=== PATIENT | male | born 1960 | race Caucasian/White ===

== ENCOUNTER 2018-06-11 12:27 | Inpatient (IN) | payer OTHER ==
[~2018-06-11] VITALS: Ht 182.9 cm; Wt 103.9 kg
[2018-06-11] VITALS (9 sets, daily range): BP systolic 83–131; BP diastolic 48–64
[2018-06-11] MEDS ORDERED: TRIA15OI TP (16:34)
[2018-06-11] MEDS ORDERED: PANT20TA2 PO (16:34)
[2018-06-11] MEDS ORDERED: ALBU2.5V8 INH (16:34)
[2018-06-11] MEDS ORDERED: OXYC1TAB15 PO (16:34)
[2018-06-11] MEDS ORDERED: L. A1CAP12 PO (16:34)
[2018-06-11] MEDS ORDERED: EPOE10005 IJ (16:34)
[2018-06-11] MEDS ORDERED: ONDA4TAB7 PO (16:34)
[2018-06-11] MEDS ORDERED: BISO5TAB2 PO (16:34)
[2018-06-11 16:41] LABS: BASE EXCESS ABG 19 mmol/L (-3-3); HCO3 ABG 47 mmol/L (21-28); PO2 ABG 57 mmHg (65-108); SAT O2 ABG 93 % (92-99)
[2018-06-11] MEDS: PROPOFOL 100 ML IV PRN (16:58)
--- NOTE | 2018-06-11 17:14 | PDOC ---
PULMONARY PROGRESS NOTES Vitals Vital Signs Date Time Temp Pulse Resp B/P (MAP) Pulse Ox O2 Delivery O2 Flow Rate FiO2 06/11/18 17:06 111 20 105/63 (77) 100 BiPAP/CPAP 06/11/18 16:22 98.6 98.6 Medications Active Scripts Medications Dose Route/Sig Max Daily Dose Days Date Category Dose Instructions Percocet 5-325 Mg Tablet (Oxycodone/Acetaminophen) 1 Each Tablet 1 Tab PO PRN Q4-6HRS PRN 06/11/18 Reported Procrit (Epoetin Jeronimo) 10,000 Unit/1 Ml Vial 10,000 Unit IJ 3X/WEEK 06/11/18 Reported Triamcinolone Acetonide 0.1% Oint (Triamcinolone Acetonide) 15 Gm Oint...g. 1 Mayra TP BID 06/11/18 Reported MIX WITH EUCERIN DIRECTED BY PHYSICIAN Bisoprolol Fumarate 5 Mg Tablet 5 Mg PO DAILY 06/11/18 Reported Zofran (Ondansetron Hcl) 4 Mg Tablet 1 Tab PO Q6HRS 06/11/18 Reported Acidophilus Capsule (L. Acidophilus/Pectin, [place]) 1 Each Capsule 1 Each PO DAILY 06/11/18 Reported Proair Hfa (Albuterol Sulfate) 8.5 Gm Hfa.aer.ad 1 Puff INH PRN Q6HRS PRN 06/11/18 Reported Protonix (Pantoprazole Sodium) 20 Mg Tablet.dr 40 Mg PO DAILY 06/11/18 Reported Impression . CHART REVIEWED SEE ORDERS FULL CONSULT TO BE DICTATED SPOKE WITH PREVIOUS RESP FAILURE NOW WITH HYPERCAPNIA RF AECOPD SEVERE EMPHYSEMA SPOKE WITH ZIGGY TREADWELL MD Jun 11, 2018 17:14
[2018-06-11 17:32] LABS: FIO2 ABG 50; PCO2 ABG 75 mmHg (35-46)
--- NOTE | 2018-06-11 18:40 | NUR ---
Patient arrived via ems. Patient intubated and placed on vent upon arrival to room. Patient ordered sedation and pain management under vent protocol. Patient given fluid bolus to resolve tachycardia after reports that patient had not been eating or drinking at home for the last 3-4 days. medications reviewed with . Dr. Jade consulted to manage vented patient. Blood gasses drawn and pulm. notified.
[2018-06-11] MEDS ORDERED: IV 1/2 NORMAL SALINE 1,000 ML IV ONE (19:45)
[2018-06-11] MEDS: IV DEXTROSE 5% - 0.9 % NACL 1,000 ML IV SCH (20:23)
--- NOTE | 2018-06-11 20:43 | NUR ---
Dr Vegas called regarding patient bp of 70/40. orders for fluids received
[2018-06-11] MEDS ORDERED: IPRATRPIUM/ALBUTEROL 0.5/2.5MG 3 ML NEBU. NEB ONE (22:00)
[2018-06-11] MEDS: CHLORHEXIDINE 0.12% 15 ML MOUTHWASH. MM SCH (22:05)
[2018-06-12] VITALS (24 sets, daily range): BP systolic 90–147; BP diastolic 48–78
[2018-06-12] MEDS: IV DEXTROSE 5% - 0.9 % NACL 1,000 ML IV SCH ×2 (00:45→01:00)
[2018-06-12] MEDS: PROPOFOL 100 ML IV PRN ×4 (00:59→18:43)
--- NOTE | 2018-06-12 03:09 | RAD ---
AP portable chest radiograph 06/11/2018 Clinical History: Respiratory failure. An AP erect portable digital radiograph of the chest was obtained. Comparison study is dated earlier the same day at 1310 hours. The ET tube is unchanged position. An NG tube has been placed. The tip of this tube is off this radiograph in the region of the body the stomach. The cardiac silhouette is normal in size. The thoracic aorta is minimally tortuous. Emphysematous changes are seen involving both lungs. No acute pulmonary infiltrate is seen. No pleural effusion or pneumothorax is noted. The osseous structures are unchanged. Impression: No acute pulmonary infiltrate is seen. Electronically signed by: Crispin Andrews MD (06/12/2018 3:05 AM) [facility]
[2018-06-12] MEDS ORDERED: MORPHINE SULFATE 4 MG/ML VIAL. IV PRN (08:00)
[2018-06-12] MEDS ORDERED: MORPHINE SULFATE 2 MG/ML VIAL. IV PRN (08:00)
[2018-06-12] MEDS ORDERED: POLYVINYL ALCOHOL 1.4% OPHTH SOLUTION 15ML BOTTLE. OU PRN (08:00)
[2018-06-12 08:34] LABS: BASE EXCESS ABG 12 mmol/L (-3-3); HCO3 ABG 36 mmol/L (21-28); PO2 ABG 61 mmHg (65-108); SAT O2 ABG 95 % (92-99)
[2018-06-12 08:38] LABS: PCO2 ABG 46 mmHg (35-46)
--- NOTE | 2018-06-12 08:48 | RAD ---
EXAM: Chest, single view; abdomen, single view. HISTORY: Tube placement. COMPARISON: 06/11/2018 FINDINGS: A frontal view the chest and frontal views of the upper abdomen are obtained. There is an endotracheal tube within the mid trachea. The endotracheal tube tip is approximately 8.0 cm proximal to the talia. There is a nasogastric tube looped within the stomach. There is bilateral upper lobe predominant emphysema. There is no consolidation, pleural effusion or pneumothorax. There is a stable prominent cardiac silhouette and there are prominent central pulmonary vessels, likely due to a component of chronic pulmonary artery hypertension. There is gas and stool within the visualized colon. IMPRESSION: 1. Endotracheal tube and nasogastric tube in expected position. 2. Pulmonary emphysema and prominent cardiac silhouette. Electronically signed by: Almaz Elizabeth MD (06/12/2018 8:45 AM) [place] [id number]
[2018-06-12 09:14] LABS: HEMATOCRIT 32.3 % (39.0-53.0); HEMOGLOBIN 9.9 g/dL (13.0-17.5); RED BLOOD COUNT 3.31 x10^6/uL (4.30-5.70); RED CELL DISTRIBUTION WIDTH 13.6 % (11.5-14.5); WHITE BLOOD COUNT 11.2 x10^3/uL (4.0-11.0)
--- NOTE | 2018-06-12 09:18 | PDOC ---
PULMONARY PROGRESS NOTES Subjective PT SEDATED ON AC MODE AM ABG NOTED DECREASE MINUTE VENTILATION Vitals Vital Signs Date Time Temp Pulse Resp B/P (MAP) Pulse Ox O2 Delivery O2 Flow Rate FiO2 06/12/18 08:02 100 Ventilator 06/12/18 08:00 100.1 90 20 139/70 (93) 100.1 General: Alert Lungs: Clear Cardiovascular: S1, S2 Abdomen: Soft Neuro Exam: Alert Extremities: Other (EDEMA) Skin: Warm Labs Laboratory Tests Test 06/11/18 16:40 06/12/18 08:00 O2 Saturation 93 % (92-99) 95 % (92-99) Arterial Blood pH 7.42 (7.35-7.45) 7.51 (7.35-7.45) Arterial Blood pCO2 at Patient Temp 75 mmHg (35-46) 46 mmHg (35-46) Arterial Blood pO2 at Patient Temp 57 mmHg (65-108) 61 mmHg (65-108) Arterial Blood HCO3 47 mmol/L (21-28) 36 mmol/L (21-28) Arterial Blood Base Excess 19 mmol/L (-3-3) 12 mmol/L (-3-3) FiO2 50 Laboratory Tests Test 06/11/18 16:40 06/12/18 08:00 O2 Saturation 93 % (92-99) 95 % (92-99) Arterial Blood pH 7.42 (7.35-7.45) 7.51 (7.35-7.45) Arterial Blood pCO2 at Patient Temp 75 mmHg (35-46) 46 mmHg (35-46) Arterial Blood pO2 at Patient Temp 57 mmHg (65-108) 61 mmHg (65-108) Arterial Blood HCO3 47 mmol/L (21-28) 36 mmol/L (21-28) Arterial Blood Base Excess 19 mmol/L (-3-3) 12 mmol/L (-3-3) FiO2 50 Medications Active Scripts Medications Dose Route/Sig Max Daily Dose Days Date Category Dose Instructions Percocet 5-325 Mg Tablet (Oxycodone/Acetaminophen) 1 Each Tablet 1 Tab PO PRN Q4-6HRS PRN 06/11/18 Reported Procrit (Epoetin Jeronimo) 10,000 Unit/1 Ml Vial 10,000 Unit IJ 3X/WEEK 06/11/18 Reported Triamcinolone Acetonide 0.1% Oint (Triamcinolone Acetonide) 15 Gm Oint...g. 1 Mayra TP BID 06/11/18 Reported MIX WITH EUCERIN DIRECTED BY PHYSICIAN Bisoprolol Fumarate 5 Mg Tablet 5 Mg PO DAILY 06/11/18 Reported Zofran (Ondansetron Hcl) 4 Mg Tablet 1 Tab PO Q6HRS 06/11/18 Reported Acidophilus Capsule (L. Acidophilus/Pectin, [place] [address] [place]) 1 Each Capsule 1 Each PO DAILY 06/11/18 Reported Proair Hfa (Albuterol Sulfate) 8.5 Gm Hfa.aer.ad 1 Puff INH PRN Q6HRS PRN 06/11/18 Reported Protonix (Pantoprazole Sodium) 20 Mg Tablet.dr 40 Mg PO DAILY 06/11/18 Reported Comments CXR REVIEWED Impression . A/C HYPERCAPNIC RESP FAILURE AECOPD HTN Plan . NOTE DICTATED WILL CONTINUE THE SAME SUSPECT PT C02 NORMALLY IN 60 RANGE ZIGGY SALAZAR MD Jun 12, 2018 09:18
[2018-06-12] MEDS: ALBUTEROL SULFATE 2.5 MG/3 ML NEBU. INH PRN ×2 (09:26→19:46)
[2018-06-12 09:34] LABS: CREATININE 0.8 mg/dL (0.7-1.3); GFR 98.9; MAGNESIUM 1.8 mg/dL (1.8-2.4); POTASSIUM 3.7 mmol/L (3.5-5.1)
[2018-06-12 09:39] LABS: CALCIUM 8.8 mg/dL (8.5-10.1)
--- NOTE | 2018-06-12 09:59 | HP ---
ADMIT DATE: 06/12/2018 HISTORY OF PRESENT ILLNESS: The patient is a 58-year-old male patient who was brought today by the emergency medical service to [facility] Emergency Room because of shortness of breath and hypoxia. The patient has had history of COPD and usually was on 4 liters of oxygen, but for the last few days prior to admission, his oxygen was increased to 5 or 6 liters. He has had increasing shortness of breath with dry cough for the last 2 days without fever, chills, chest pain, sick contact. Emergency medical service personnel reported the patient's oxygen saturation was only 80% on 6 liters of oxygen that improved with nonrebreathing mask and DuoNeb to 99% on arrival to the Emergency Room. He has refused to answer most of the questions. His was helping with the history. He has history of intubation and admission to [facility] before and he states that he does not want to have intubation as long as possible. He was put on BiPAP machine there, but where his initial blood gases showed a pH of 7.24, his pCO2 was 124, pO2 was 63 and oxygen saturation was only 83% on FiO2 of 40%. Apparently, he did not do well on BiPAP and the patient ended up intubated and was transferred to [facility] ICU to continue mechanical ventilation and to consult the bagger and stock handler helper. PAST MEDICAL HISTORY: Significant for COPD and obviously history of intubation, mechanical ventilation at [facility]. He is also known to have hypertension and anemia. PAST SURGICAL HISTORY: Unobtainable. FAMILY HISTORY: Unobtainable. SOCIAL HISTORY: He is . Apparently, an ex-smoker, however, does not have any further information and has no family members available when I saw him. We will contact [facility] to get some more records for him. REVIEW OF SYSTEMS: Unobtainable. PHYSICAL EXAMINATION: GENERAL: On arrival to the Emergency Room of [facility], he was obtunded, but there was no pallor, jaundice, cyanosis, or thyromegaly. No jugular venous distension. No lower limb edema. VITAL SIGNS: His heart rate was 126, blood pressure was 110/60, temperature of 98.6, respiratory rate was 24, and oxygen saturation was 99%. HEAD: Showed normocephalic, atraumatic. NECK: Supple. HEART: Showed normal first and second sounds. No gallop, rub or murmur. CHEST: Shows central trachea, equally reduced expansion, reduced air entry, vesicular breath sounds with scattered rhonchi, no crepitation. ABDOMEN: Distended, soft, nontender. No guarding or rigidity. No organomegaly. All hernial orifice intact. Bowel sounds normal. NEUROLOGIC: He was awake, alert, responding appropriately. Cranial nerves intact. EXTREMITIES: He moves extremities without difficulty. LABORATORY DATA: His lab work on arrival to the Emergency Room showed that his blood gases showed a pH of 7.24, pCO2 of 124, pO2 of 63, bicarbonate 52 and oxygen saturation was 83% on FiO2 of 40%. His white cell count was 10,000, hemoglobin 12.4, hematocrit 39.9, MCV 98 and platelet count of 199,000 with normal manual differential. His EKG showed that he was in sinus tachycardia with a heart rate of 125 with right axis deviation, ST-T wave abnormalities in inferior leads with left ventricular strain pattern. No ST elevation. He has had a chest x-ray, which showed the heart size is normal. There is attenuation of the pulmonary vasculature in the upper lobes, particularly on the right suggesting emphysema. No pulmonary consolidation is seen. There was no evidence of pleural fluid or pneumothorax. ASSESSMENT AND PLAN: An attempt was made to treat him with the BiPAP machine. He was treated with BiPAP machine, DuoNeb and Solu-Medrol was given with partial improvement of his condition. The patient has had oxygen saturation at low of 90s on nonrebreather mask. The patient informed about needs for intubation and he and his agreed to be intubated and his signed the consent. The patient has uneventful intubation with increased oxygen to 100%, but had some episodes of waking up on propofol drip that improved with bolus of propofol and Versed. His blood pressure was low and received at least 2 liters of fluid and was transferred to [facility] Intensive Care Unit to continue with mechanical ventilation and to consult the bagger and stock handler helper for ventilator management with the admission diagnosis of acute hypoxic hypercapnic respiratory failure, chronic obstructive pulmonary disease exacerbation. His sodium was somewhat high. We will contact the [facility] to get some more medical records. Meanwhile, we will resume all his home medications that include his epoetin stefania 10,000 units 3 times a week, Bisoprolol 5 mg once a day, oxycodone/APAP 5/325 one tablet every 4-6 hours. He is on ondansetron 4 mg every 6 hours, Protonix 40 mg daily, lactobacillus acidophilus 1 capsule once a day and triamcinolone acetonide 0.1% ointment applied topically twice a day. MILES MOJICA MD DR: BELINDA/елена JOB#: [id number] / [id number]
[2018-06-12] MEDS: CHLORHEXIDINE 0.12% 15 ML MOUTHWASH. MM SCH ×2 (10:11→20:59)
[2018-06-12] MEDS: FAMOTIDINE 20 MG/2 ML VIAL IVP SCH ×2 (10:11→20:59)
[2018-06-12] MEDS: ATENOLOL 50 MG TABLET. PO SCH (10:12)
[2018-06-12] MEDS: LACTOBACILLUS RHAMNOSUS GG 1 CAPSULE. PO SCH ×2 (10:12→20:59)
[2018-06-12] MEDS: methylPREDNISolone SOD SUCC PF 40 MG/ML VIAL. IV SCH ×3 (10:12→21:08)
[2018-06-12] MEDS: TRIAMCINOLONE ACETONIDE 0.1% TOPICAL OINTMENT 15GM TUBE. TP SCH ×2 (10:13→21:00)
[2018-06-12] MEDS: POTASSIUM CL 20MEQ D5-0.45NACL 1,000 ML IV SCH ×2 (11:19→22:22)
--- NOTE | 2018-06-12 15:12 | NUR ---
SS following for discharge planning. SS reviewed pt chart. Pt is from home with spouse and is currently on the vent. SS will continue to follow for pending discharge needs.
--- NOTE | 2018-06-12 20:56 | PN ---
DATE: 06/12/2018 SUBJECTIVE: The patient is a 58-year-old male patient who was seen yesterday initially at [facility] Emergency Room with acute hypoxic hypercapnic respiratory failure that required intubation, mechanical ventilation, and was transferred to [facility] to continue mechanical ventilation. He was hypotensive, so he received a total of 3 liters of normal saline and also some D5 as his sodium was high. He was sedated and did very well overnight. When I saw him this morning, he was continued to be intubated, mechanically ventilated, and well sedated. The nursing staff did not voice any concerns that he has an uneventful night. PHYSICAL EXAMINATION: GENERAL: When I examined him, he looked somewhat pale, not jaundice, cyanosis, or thyromegaly. No jugular venous distension. No lower limb edema. VITAL SIGNS: His heart rate was 93, blood pressure was 92/51, temperature was 100.1, respiratory rate was 20, and oxygen saturation was 97% on FiO2 of 40%. HEAD, EYES, EARS, NOSE AND THROAT: Showed normocephalic, atraumatic. He has orotracheal and orogastric tube in place. His neck was supple. HEART: Showed normal first and second sounds. No gallop, rub or murmur. CHEST: Clear to auscultation. No crepitation or rhonchi. ABDOMEN: Distended, soft, nontender. No guarding or rigidity. No organomegaly. All hernial orifices intact. Bowel sounds normal. NEUROLOGIC: He is heavily sedated. His chest x-ray showed no acute pulmonary infiltrate. He has an endotracheal tube, it is unchanged in position. He had NG tube that been placed, the tip of this tube of this radiograph in the region of the body of the stomach. The cardiac silhouette is normal in size. The thoracic aorta is minimally tortuous. Emphysematous changes are seen involving both lungs. No acute pulmonary infiltrate is seen. No pleural effusion or pneumothorax is noted. The osseous structures are unchanged. We will continue with mechanical ventilation. Add Solu-Medrol 40 mg IV q.8 hourly. We will obviously start him on tube feeds through the NG tube and will be consulted the electrical systems designer, speech therapist, physical and occupational therapist. We will get medical records from [facility]. MILES MOJICA MD DR: Tre JOB#: [id number] / [id number]
[2018-06-13] VITALS (22 sets, daily range): BP systolic 82–132; BP diastolic 50–80
--- NOTE | 2018-06-13 01:13 | CONS ---
DATE OF CONSULTATION: 06/12/2018 ATTENDING PHYSICIAN: Dr. Cornejo. REASON FOR CONSULTATION: The patient seen in pulmonary consultation at the request of Dr. Cornejo for vent management. HISTORY OF PRESENT ILLNESS: The patient is a 58-year-old that normally wears 4 liters of oxygen. Apparently, he has been having some increasing shortness of breath. He was increasing his oxygen supplementation, presented to [facility] with short of air and hypoxemia. The patient reportedly had saturations of 80% on 6 liters. The states that patient previously had respiratory failure and intubation and was admitted at [facility]. He was placed on BiPAP. Initial blood gas revealed a pH of 7.24, PaCO2 of 124, paO2 of 63. The patient continued to deteriorate. He eventually was intubated and transferred to [facility] for further evaluation and management. During my evaluation, last evening, the patient hemodynamically was stable. A chest x-ray was reviewed revealing hyperinflation with no infiltrates. His arterial blood gas revealed a pH of 7.42, PaCO2 of 75, paO2 of 57. White count was 11,000. Electrolytes were normal. PAST MEDICAL HISTORY: Chronic respiratory failure, previously intubated at [facility]. There is also history of hypertension and anemia. PAST SURGICAL HISTORY: None. No recent major surgeries. ALLERGIES: LISTED TO PENICILLIN, HYDROCODONE. SOCIAL HISTORY: Apparently, he is a former smoker. REVIEW OF SYSTEMS: Unobtainable secondary to the patient's condition. PHYSICAL EXAMINATION: VITAL SIGNS: Stable. O2 saturation was greater than 92%. HEENT: Eyes, the sclerae were nonicteric. NECK: Jugular venous distention could not be assessed secondary to body habitus. CHEST: Full expansion. LUNGS: Adequate airway flow with no wheezes. CARDIOVASCULAR: Regular rate and rhythm with S1, S2, no S3. ABDOMEN: Soft, nontender, nondistended. EXTREMITIES: No clubbing, cyanosis or pitting edema. NEUROLOGIC: The patient was sedated. Labs and chest x-ray as indicated above. IMPRESSION: 1. Acute on chronic hypoxemic hypercapnic respiratory failure. 2. Acute exacerbation of chronic obstructive pulmonary disease. 3. Tobacco dependence, in remission. 4. Hypertension. 5. Chronic anemia. PLAN: 1. We will continue support with mechanical ventilation. 2. Repeat arterial blood gas and chest x-ray in the morning. 3. DVT and GI prophylaxis. 4. Solu-Medrol. 5. Continue home meds. Dr. Cornejo, I do appreciate the privilege in sharing this patient's care. Total cumulative critical care time of 40 minutes. ZIGGY SALAZAR MD DR: HUMBERTO/елена JOB#: [id number] / [id number]
[2018-06-13 03:33] LABS: HEMATOCRIT 30.6 % (39.0-53.0); HEMOGLOBIN 9.6 g/dL (13.0-17.5); RED BLOOD COUNT 3.21 x10^6/uL (4.30-5.70); RED CELL DISTRIBUTION WIDTH 13.8 % (11.5-14.5); WHITE BLOOD COUNT 9.7 x10^3/uL (4.0-11.0)
[2018-06-13 03:59] LABS: ALBUMIN 2.3 g/dL (3.4-5.0); ALBUMIN/GLOBULIN RATIO 0.7 (1.0-1.7); CALCIUM 8.2 mg/dL (8.5-10.1); CREATININE 0.6 mg/dL (0.7-1.3); GFR 137.9; POTASSIUM 4.3 mmol/L (3.5-5.1); TOTAL BILIRUBIN 0.2 mg/dL (0.2-1.0); TOTAL PROTEIN 5.8 g/dL (6.4-8.2)
[2018-06-13] MEDS: PROPOFOL 100 ML IV PRN ×3 (05:18→09:47)
[2018-06-13] MEDS: methylPREDNISolone SOD SUCC PF 40 MG/ML VIAL. IV SCH ×3 (05:49→21:34)
--- NOTE | 2018-06-13 08:31 | RAD ---
Portable chest, 06/13/2018: HISTORY: Respiratory failure Comparison is made to yesterday's study. The ET tube tip lies 7-8 cm above the talia. The NG tube extends into the stomach. The heart is at the upper limits of normal in size. Emphysematous changes are again noted in the upper lobes with parenchymal scarring. Retrocardiac infiltrate has developed medially in the left base. No definite pleural fluid is seen. IMPRESSION: 1. Stable tube positions. 2. Emphysema. 3. Retrocardiac left basilar infiltrate suggesting pneumonia. Electronically signed by: Desmond Lind MD (06/13/2018 8:28 AM) [facility]
[2018-06-13] MEDS: ATENOLOL 50 MG TABLET. PO SCH (09:00)
[2018-06-13] MEDS ORDERED: PIP/TAZO PER PHARMACY MC PRN (09:00)
[2018-06-13] MEDS: CHLORHEXIDINE 0.12% 15 ML MOUTHWASH. MM SCH ×2 (09:00→21:34)
[2018-06-13] MEDS ORDERED: VANCOMYCIN PER PHARMACY MC PRN (09:00)
[2018-06-13] MEDS: TRIAMCINOLONE ACETONIDE 0.1% TOPICAL OINTMENT 15GM TUBE. TP SCH ×2 (09:00→21:35)
--- NOTE | 2018-06-13 09:19 | PDOC ---
PULMONARY PROGRESS NOTES Subjective PT SEDATED ON AC MODE AM ABG NOTED Vitals Vital Signs Date Time Temp Pulse Resp B/P (MAP) Pulse Ox O2 Delivery O2 Flow Rate FiO2 06/13/18 08:46 100 Ventilator 06/13/18 06:00 61 13 111/67 (82) 06/12/18 23:59 95.4 95.4 General: Alert Lungs: Clear Cardiovascular: S1, S2 Abdomen: Soft Neuro Exam: Alert Extremities: Other (EDEMA) Skin: Warm Labs Laboratory Tests Test 06/11/18 15:30 06/11/18 16:40 06/12/18 08:00 06/12/18 08:55 Nasal Screen MRSA (PCR) Negative (Negative) O2 Saturation 93 % (92-99) 95 % (92-99) Arterial Blood pH 7.42 (7.35-7.45) 7.51 (7.35-7.45) Arterial Blood pCO2 at Patient Temp 75 mmHg (35-46) 46 mmHg (35-46) Arterial Blood pO2 at Patient Temp 57 mmHg (65-108) 61 mmHg (65-108) Arterial Blood HCO3 47 mmol/L (21-28) 36 mmol/L (21-28) Arterial Blood Base Excess 19 mmol/L (-3-3) 12 mmol/L (-3-3) FiO2 50 White Blood Count 11.2 x10^3/uL (4.0-11.0) Red Blood Count 3.31 x10^6/uL (4.30-5.70) Hemoglobin 9.9 g/dL (13.0-17.5) Hematocrit 32.3 % (39.0-53.0) Mean Corpuscular Volume 98 fL (79-100) Mean Corpuscular Hemoglobin 30 pg (25-35) Mean Corpuscular Hemoglobin Concent 31 g/dL (31-37) Red Cell Distribution Width 13.6 % (11.5-14.5) Platelet Count 170 x10^3/uL (140-400) Sodium Level 145 mmol/L (136-145) Potassium Level 3.7 mmol/L (3.5-5.1) Chloride Level 102 mmol/L (98-107) Carbon Dioxide Level 40 mmol/L (21-32) Anion Gap 3 (6-14) Blood Urea Nitrogen 34 mg/dL (8-26) Creatinine 0.8 mg/dL (0.7-1.3) Estimated GFR (Cockcroft-Gault) 98.9 Glucose Level 114 mg/dL (70-99) Calcium Level 8.8 mg/dL (8.5-10.1) Magnesium Level 1.8 mg/dL (1.8-2.4) Test 06/13/18 03:13 White Blood Count 9.7 x10^3/uL (4.0-11.0) Red Blood Count 3.21 x10^6/uL (4.30-5.70) Hemoglobin 9.6 g/dL (13.0-17.5) Hematocrit 30.6 % (39.0-53.0) Mean Corpuscular Volume 96 fL (79-100) Mean Corpuscular Hemoglobin 30 pg (25-35) Mean Corpuscular Hemoglobin Concent 31 g/dL (31-37) Red Cell Distribution Width 13.8 % (11.5-14.5) Platelet Count 162 x10^3/uL (140-400) Sodium Level 145 mmol/L (136-145) Potassium Level 4.3 mmol/L (3.5-5.1) Chloride Level 105 mmol/L (98-107) Carbon Dioxide Level 41 mmol/L (21-32) Anion Gap -1 (6-14) Blood Urea Nitrogen 28 mg/dL (8-26) Creatinine 0.6 mg/dL (0.7-1.3) Estimated GFR (Cockcroft-Gault) 137.9 BUN/Creatinine Ratio 47 (6-20) Glucose Level 222 mg/dL (70-99) Calcium Level 8.2 mg/dL (8.5-10.1) Total Bilirubin 0.2 mg/dL (0.2-1.0) Aspartate Amino Transf (AST/SGOT) 20 U/L (15-37) Alanine Aminotransferase (ALT/SGPT) 15 U/L (16-63) Alkaline Phosphatase 40 U/L (46-116) Total Protein 5.8 g/dL (6.4-8.2) Albumin 2.3 g/dL (3.4-5.0) Albumin/Globulin Ratio 0.7 (1.0-1.7) Laboratory Tests Test 06/13/18 03:13 White Blood Count 9.7 x10^3/uL (4.0-11.0) Red Blood Count 3.21 x10^6/uL (4.30-5.70) Hemoglobin 9.6 g/dL (13.0-17.5) Hematocrit 30.6 % (39.0-53.0) Mean Corpuscular Volume 96 fL (79-100) Mean Corpuscular Hemoglobin 30 pg (25-35) Mean Corpuscular Hemoglobin Concent 31 g/dL (31-37) Red Cell Distribution Width 13.8 % (11.5-14.5) Platelet Count 162 x10^3/uL (140-400) Sodium Level 145 mmol/L (136-145) Potassium Level 4.3 mmol/L (3.5-5.1) Chloride Level 105 mmol/L (98-107) Carbon Dioxide Level 41 mmol/L (21-32) Anion Gap -1 (6-14) Blood Urea Nitrogen 28 mg/dL (8-26) Creatinine 0.6 mg/dL (0.7-1.3) Estimated GFR (Cockcroft-Gault) 137.9 BUN/Creatinine Ratio 47 (6-20) Glucose Level 222 mg/dL (70-99) Calcium Level 8.2 mg/dL (8.5-10.1) Total Bilirubin 0.2 mg/dL (0.2-1.0) Aspartate Amino Transf (AST/SGOT) 20 U/L (15-37) Alanine Aminotransferase (ALT/SGPT) 15 U/L (16-63) Alkaline Phosphatase 40 U/L (46-116) Total Protein 5.8 g/dL (6.4-8.2) Albumin 2.3 g/dL (3.4-5.0) Albumin/Globulin Ratio 0.7 (1.0-1.7) Medications Active Scripts Medications Dose Route/Sig Max Daily Dose Days Date Category Dose Instructions Percocet 5-325 Mg Tablet (Oxycodone/Acetaminophen) 1 Each Tablet 1 Tab PO PRN Q4-6HRS PRN 06/11/18 Reported Procrit (Epoetin Jeronimo) 10,000 Unit/1 Ml Vial 10,000 Unit IJ 3X/WEEK 06/11/18 Reported Triamcinolone Acetonide 0.1% Oint (Triamcinolone Acetonide) 15 Gm Oint...g. 1 Mayra TP BID 06/11/18 Reported MIX WITH EUCERIN DIRECTED BY PHYSICIAN Bisoprolol Fumarate 5 Mg Tablet 5 Mg PO DAILY 06/11/18 Reported Zofran (Ondansetron Hcl) 4 Mg Tablet 1 Tab PO Q6HRS 06/11/18 Reported Acidophilus Capsule (L. Acidophilus/Pectin, [place]) 1 Each Capsule 1 Each PO DAILY 06/11/18 Reported Proair Hfa (Albuterol Sulfate) 8.5 Gm Hfa.aer.ad 1 Puff INH PRN Q6HRS PRN 06/11/18 Reported Protonix (Pantoprazole Sodium) 20 Mg Tablet. 40 Mg PO DAILY 06/11/18 Reported Comments CXR REVIEWED NEW INFILTRATE Impression . IMPRESSION: 1. Acute on chronic hypoxemic hypercapnic respiratory failure. 2. Acute exacerbation of chronic obstructive pulmonary disease. 3. Tobacco dependence, in remission. 4. Hypertension. 5. Chronic anemia. 6. PNEUMONIA POSSIBLE GRAM NEG Plan . AGREE WITH DR MOJICA ON ANTIBX SPOKE WITH AT BEDSIDE D/W RT WILL INCREASE RATE 10 16 WILL NEED SEVERAL MORE DAYS ON VENT DVT AND GI PROPH SUSPECT PT C02 NORMALLY IN 60 RANGE ZIGGY SALAZAR MD Jun 13, 2018 09:19
[2018-06-13 09:29] LABS: BASE EXCESS ABG 11 mmol/L (-3-3); HCO3 ABG 39 mmol/L (21-28); PO2 ABG 70 mmHg (65-108); SAT O2 ABG 94 % (92-99)
[2018-06-13 09:31] LABS: FIO2 ABG 40; PCO2 ABG 74 mmHg (35-46)
--- NOTE | 2018-06-13 09:41 | PN ---
DATE: 06/13/2018 SUBJECTIVE: The patient is resting slightly propped up in bed and in no apparent respiratory distress. He continued to be intubated, mechanically ventilated on propofol and fentanyl. Nursing staff did not voice any concern and stated that he has an uneventful night. When I examined him, he looked somewhat pale, but no jaundice, cyanosis or thyromegaly. No jugular venous distension. No lower limb edema. OBJECTIVE: VITAL SIGNS: His heart rate was 61, blood pressure 111/57, temperature was 95.4, respiratory rate was 13 and oxygen saturation was 100% on FiO2 of 40%.. HEAD, EYES, EARS, NOSE AND THROAT: Showed normocephalic, atraumatic. Orotracheal and orogastric tube in place. NECK: Supple. HEART: Showed normal first and second heart sounds. No gallop, rub or murmur. CHEST: Showed central trachea, equal bilateral chest expansion, air entry. Vesicular breath sounds. No crepitation or rhonchi. ABDOMEN: Distended. Soft, nontender NEUROLOGIC: He was heavily sedated. LABORATORY DATA: His lab work this morning showed a white cell count of 9700, hemoglobin 9.6, hematocrit 30.6, MCV 96 and platelet count of 162,000. His chemistry showed a serum sodium of 145, potassium 4.3, chloride 105, bicarbonate 41, anion gap of -1, BUN 28, creatinine 0.6, estimated GFR was 137 mL per minute. His glucose was 222, calcium was 8.2. Total bilirubin, AST, ALT, alkaline phosphatase were normal. Total protein was 5.8, albumin 2.3. His nasal screen for MRSA PCR was negative. His chest x-ray this morning showed that stable tube positions, has emphysema and has a retrocardiac left basilar infiltrate suggestive of pneumonia. ASSESSMENT: 1. Acute on chronic hypoxic hypercapnic respiratory failure. 2. Chronic obstructive pulmonary disease exacerbation. 3. Hypertension. 4. Chronic anemia that is normochromic normocytic. Apparently, the patient has history of acute duodenal ulcer with hemorrhage, acute posthemorrhagic anemia. He is also known to have paroxysmal atrial fibrillation, psoriasis. His chest x-ray showed that he has left lower lobe infiltrate. My plan is to continue with mechanical ventilation and wean as tolerated. Continue IV fluid. Given the infiltrate in the left lung, I will start him on IV antibiotic and decide on further management accordingly. MILES MOJICA MD DR: BELINDA/елена JOB#: [id number] / [id number]
[2018-06-13] MEDS: MEROPENEM 1 GM in IV NORMAL SALINE 100ML 100 ML IV SCH ×2 (09:48→21:34)
[2018-06-13] MEDS ORDERED: VANCOMYCIN 2 GM in IV NORMAL SALINE 500ML BAG 500 ML IV ONE (10:00)
[2018-06-13] MEDS: LACTOBACILLUS RHAMNOSUS GG 1 CAPSULE. PO SCH ×2 (11:14→21:34)
[2018-06-13] MEDS: FAMOTIDINE 20 MG/2 ML VIAL IVP SCH ×2 (11:14→21:34)
[2018-06-13] MEDS ORDERED: PANTOPRAZOLE IV PUSH 40 MG VIAL. IVP SCH (11:30)
--- NOTE | 2018-06-13 14:00 | NUR ---
Changed over Versed gtt instaed of Propofol gt for sedation as BP upper 80's sys. at bedside. Vent and ETT intact. Appears comfortable. No fever. Lines intact
[2018-06-13] MEDS: MIDAZOLAM 100mg/100ml NS BAG 100 ML IV PRN (14:32)
[2018-06-13] MEDS: POTASSIUM CL 20MEQ D5-0.45NACL 1,000 ML IV SCH ×2 (18:35→21:35)
[2018-06-14] VITALS (24 sets, daily range): BP systolic 100–149; BP diastolic 56–95
[2018-06-14] MEDS: POTASSIUM CL 20MEQ D5-0.45NACL 1,000 ML IV SCH (02:30)
[2018-06-14] MEDS: methylPREDNISolone SOD SUCC PF 40 MG/ML VIAL. IV SCH ×3 (05:37→21:19)
[2018-06-14] MEDS: MEROPENEM 1 GM in IV NORMAL SALINE 100ML 100 ML IV SCH ×3 (05:38→21:18)
[2018-06-14 05:48] LABS: HEMOGLOBIN 11.2 g/dL (13.0-17.5); RED BLOOD COUNT 3.83 x10^6/uL (4.30-5.70); RED CELL DISTRIBUTION WIDTH 14.4 % (11.5-14.5); WHITE BLOOD COUNT 14.9 x10^3/uL (4.0-11.0)
[2018-06-14 06:04] LABS: ALBUMIN 2.7 g/dL (3.4-5.0); ALBUMIN/GLOBULIN RATIO 0.7 (1.0-1.7); CALCIUM 8.7 mg/dL (8.5-10.1); CREATININE 0.7 mg/dL (0.7-1.3); GFR 115.4; POTASSIUM 5.1 mmol/L (3.5-5.1); TOTAL BILIRUBIN 0.1 mg/dL (0.2-1.0); TOTAL PROTEIN 6.8 g/dL (6.4-8.2)
--- NOTE | 2018-06-14 07:48 | RAD ---
Portable chest, 06/14/2018: HISTORY: Intubation, respiratory failure Comparison is made to yesterday's study. The ET tube tip lies well above the talia. The NG tube extends into the stomach although its tip is not visible. The heart size is normal. There are emphysematous changes, particularly in the right upper lobe. There is unchanged retrocardiac infiltrate medially in the left base. No new pulmonary abnormality is seen. There is no evidence of pleural fluid or pneumothorax. IMPRESSION: No significant change since yesterday's exam. Electronically signed by: Desmond Lind MD (06/14/2018 7:45 AM) [facility]
[2018-06-14 08:54] LABS: BASE EXCESS ABG 10 mmol/L (-3-3); HCO3 ABG 38 mmol/L (21-28); PO2 ABG 89 mmHg (65-108); SAT O2 ABG 95 % (92-99)
[2018-06-14] MEDS: CHLORHEXIDINE 0.12% 15 ML MOUTHWASH. MM SCH ×2 (09:00→21:18)
[2018-06-14] MEDS: ATENOLOL 50 MG TABLET. PO SCH (09:29)
[2018-06-14] MEDS: FAMOTIDINE 20 MG/2 ML VIAL IVP SCH ×2 (09:29→21:19)
[2018-06-14] MEDS ORDERED: DEXTROSE 50% 25 GM / 50ML DISP.SYRIN. IV PRN (09:30)
[2018-06-14] MEDS: TRIAMCINOLONE ACETONIDE 0.1% TOPICAL OINTMENT 15GM TUBE. TP SCH ×2 (09:30→21:19)
[2018-06-14] MEDS: IV 1/2 NORMAL SALINE 1,000 ML IV SCH ×2 (09:30→20:16)
[2018-06-14] MEDS: LACTOBACILLUS RHAMNOSUS GG 1 CAPSULE. PO SCH ×2 (09:31→21:18)
[2018-06-14] MEDS: MIDAZOLAM 100mg/100ml NS BAG 100 ML IV PRN (10:09)
--- NOTE | 2018-06-14 11:02 | NUR ---
SS following up with discharge planning. SS phoned and faxed referral to [facility], ; fax [phone]. SS will await acceptance decision and insurance determination and will proceed accordingly.
--- NOTE | 2018-06-14 11:02 | PDOC ---
PULMONARY PROGRESS NOTES Subjective PT SEDATED ON AC MODE AM ABG NOTED Vitals Vital Signs Date Time Temp Pulse Resp B/P (MAP) Pulse Ox O2 Delivery O2 Flow Rate FiO2 06/14/18 10:26 99 Ventilator 06/14/18 10:00 70 16 100/56 (71) 06/14/18 08:00 97.8 97.8 General: Alert Lungs: Clear Cardiovascular: S1, S2 Abdomen: Soft Neuro Exam: Alert Extremities: Other (EDEMA) Skin: Warm Labs Laboratory Tests Test 06/13/18 03:13 06/13/18 08:40 06/14/18 05:15 White Blood Count 9.7 x10^3/uL (4.0-11.0) 14.9 x10^3/uL (4.0-11.0) Red Blood Count 3.21 x10^6/uL (4.30-5.70) 3.83 x10^6/uL (4.30-5.70) Hemoglobin 9.6 g/dL (13.0-17.5) 11.2 g/dL (13.0-17.5) Hematocrit 30.6 % (39.0-53.0) 37.0 % (39.0-53.0) Mean Corpuscular Volume 96 fL (79-100) 97 fL (79-100) Mean Corpuscular Hemoglobin 30 pg (25-35) 29 pg (25-35) Mean Corpuscular Hemoglobin Concent 31 g/dL (31-37) 30 g/dL (31-37) Red Cell Distribution Width 13.8 % (11.5-14.5) 14.4 % (11.5-14.5) Platelet Count 162 x10^3/uL (140-400) 198 x10^3/uL (140-400) Sodium Level 145 mmol/L (136-145) 140 mmol/L (136-145) Potassium Level 4.3 mmol/L (3.5-5.1) 5.1 mmol/L (3.5-5.1) Chloride Level 105 mmol/L (98-107) 102 mmol/L (98-107) Carbon Dioxide Level 41 mmol/L (21-32) 35 mmol/L (21-32) Anion Gap -1 (6-14) 3 (6-14) Blood Urea Nitrogen 28 mg/dL (8-26) 26 mg/dL (8-26) Creatinine 0.6 mg/dL (0.7-1.3) 0.7 mg/dL (0.7-1.3) Estimated GFR (Cockcroft-Gault) 137.9 115.4 BUN/Creatinine Ratio 47 (6-20) 37 (6-20) Glucose Level 222 mg/dL (70-99) 255 mg/dL (70-99) Calcium Level 8.2 mg/dL (8.5-10.1) 8.7 mg/dL (8.5-10.1) Total Bilirubin 0.2 mg/dL (0.2-1.0) 0.1 mg/dL (0.2-1.0) Aspartate Amino Transf (AST/SGOT) 20 U/L (15-37) 17 U/L (15-37) Alanine Aminotransferase (ALT/SGPT) 15 U/L (16-63) 17 U/L (16-63) Alkaline Phosphatase 40 U/L (46-116) 51 U/L (46-116) Total Protein 5.8 g/dL (6.4-8.2) 6.8 g/dL (6.4-8.2) Albumin 2.3 g/dL (3.4-5.0) 2.7 g/dL (3.4-5.0) Albumin/Globulin Ratio 0.7 (1.0-1.7) 0.7 (1.0-1.7) O2 Saturation 94 % (92-99) Arterial Blood pH 7.35 (7.35-7.45) Arterial Blood pCO2 at Patient Temp 74 mmHg (35-46) Arterial Blood pO2 at Patient Temp 70 mmHg (65-108) Arterial Blood HCO3 39 mmol/L (21-28) Arterial Blood Base Excess 11 mmol/L (-3-3) FiO2 40 Laboratory Tests Test 06/14/18 05:15 White Blood Count 14.9 x10^3/uL (4.0-11.0) Red Blood Count 3.83 x10^6/uL (4.30-5.70) Hemoglobin 11.2 g/dL (13.0-17.5) Hematocrit 37.0 % (39.0-53.0) Mean Corpuscular Volume 97 fL (79-100) Mean Corpuscular Hemoglobin 29 pg (25-35) Mean Corpuscular Hemoglobin Concent 30 g/dL (31-37) Red Cell Distribution Width 14.4 % (11.5-14.5) Platelet Count 198 x10^3/uL (140-400) Sodium Level 140 mmol/L (136-145) Potassium Level 5.1 mmol/L (3.5-5.1) Chloride Level 102 mmol/L (98-107) Carbon Dioxide Level 35 mmol/L (21-32) Anion Gap 3 (6-14) Blood Urea Nitrogen 26 mg/dL (8-26) Creatinine 0.7 mg/dL (0.7-1.3) Estimated GFR (Cockcroft-Gault) 115.4 BUN/Creatinine Ratio 37 (6-20) Glucose Level 255 mg/dL (70-99) Calcium Level 8.7 mg/dL (8.5-10.1) Total Bilirubin 0.1 mg/dL (0.2-1.0) Aspartate Amino Transf (AST/SGOT) 17 U/L (15-37) Alanine Aminotransferase (ALT/SGPT) 17 U/L (16-63) Alkaline Phosphatase 51 U/L (46-116) Total Protein 6.8 g/dL (6.4-8.2) Albumin 2.7 g/dL (3.4-5.0) Albumin/Globulin Ratio 0.7 (1.0-1.7) Medications Active Scripts Medications Dose Route/Sig Max Daily Dose Days Date Category Dose Instructions Percocet 5-325 Mg Tablet (Oxycodone/Acetaminophen) 1 Each Tablet 1 Tab PO PRN Q4-6HRS PRN 06/11/18 Reported Procrit (Epoetin Jeronimo) 10,000 Unit/1 Ml Vial 10,000 Unit IJ 3X/WEEK 06/11/18 Reported Triamcinolone Acetonide 0.1% Oint (Triamcinolone Acetonide) 15 Gm Oint...g. 1 Mayra TP BID 06/11/18 Reported MIX WITH EUCERIN DIRECTED BY PHYSICIAN Bisoprolol Fumarate 5 Mg Tablet 5 Mg PO DAILY 06/11/18 Reported Zofran (Ondansetron Hcl) 4 Mg Tablet 1 Tab PO Q6HRS 06/11/18 Reported Acidophilus Capsule (L. Acidophilus/Pectin, [place]) 1 Each Capsule 1 Each PO DAILY 06/11/18 Reported Proair Hfa (Albuterol Sulfate) 8.5 Gm Hfa.aer.ad 1 Puff INH PRN Q6HRS PRN 06/11/18 Reported Protonix (Pantoprazole Sodium) 20 Mg Tablet.dr 40 Mg PO DAILY 06/11/18 Reported Comments CXR REVIEWED NEW INFILTRATE Impression . IMPRESSION: 1. Acute on chronic hypoxemic hypercapnic respiratory failure. 2. Acute exacerbation of chronic obstructive pulmonary disease. 3. Tobacco dependence, in remission. 4. Hypertension. 5. Chronic anemia. 6. PNEUMONIA POSSIBLE GRAM NEG Plan . DID OK ON TRAIL NOT READY FOR EXTUBATION WILL PLACE ON PRECEDES AND START PS TODAY NEEDS TO RETAIN CO2. 55-60 RANGE ANTIBX DVT AND GI PROPH SUSPECT PT C02 NORMALLY IN 60 RANGE ZIGGY SALAZAR MD Jun 14, 2018 11:02
[2018-06-14 11:43] LABS: FIO2 ABG 40; PCO2 ABG 68 mmHg (35-46)
[2018-06-14 12:03] LABS: BASE EXCESS ABG 4 mmol/L (-3-3); HCO3 ABG 30 mmol/L (21-28); PCO2 ABG 48 mmHg (35-46); PO2 ABG 122 mmHg (65-108); SAT O2 ABG 98 % (92-99)
[2018-06-14] MEDS ORDERED: IV NORMAL SALINE 500ML BAG 500 ML IV PRN (12:30)
[2018-06-14] MEDS ORDERED: ATROPINE 0.5 MG/5 ML DISP.SYRINGE. IV PRN (12:30)
[2018-06-14] MEDS: DEXMEDETOMIDINE 200 MCG in IV NORMAL SALINE 50ML 48 ML IV PRN ×5 (13:21→23:38)
[2018-06-14] MEDS: INSULIN LISPRO 300 UNITS/3 ML INSULN.PEN. SQ SCH ×2 (13:24→17:18)
[2018-06-14 15:52] LABS: FIO2 ABG 40
--- NOTE | 2018-06-14 17:35 | NUR ---
Sedation Vacation at 1035 along with Cpap trial. Trial/Vacation ended at 1130. Patient placed on pressure support. Versed and Fentanyl dc'd patient placed on precedex. Family at bedside. Patient in no apparent distress, will continue to monitor.
--- NOTE | 2018-06-14 22:48 | PN ---
DATE: 06/14/2018 SUBJECTIVE: The patient continues to be sedated, intubated and mechanically ventilated. OBJECTIVE: GENERAL: On examining him, he looked pale, no jaundice, cyanosis or thyromegaly. No jugular venous distention. No lower limb edema. VITAL SIGNS: His heart rate was 75, blood pressure was 136/70, temperature was 98.4, respiratory rate was 16, and oxygen saturation was 98%. HEAD, EYES, EARS, NOSE AND THROAT: Normocephalic, atraumatic. NECK: Supple. HEART: Showed normal first and second heart sounds. No gallop, rub or murmur. CHEST: Clear to auscultation. No crepitation or rhonchi. ABDOMEN: Distended, soft, nontender. NEUROLOGIC: He was sedated, does open his eyes, tracks and responds appropriately. All cranial nerves intact. He moves extremities without difficulty. His intake over the last 24 hours was 1000, output was 3750. LABORATORY DATA: His lab work this morning showed a white cell count 14,900, hemoglobin 11, hematocrit 37, MCV 97 and platelet count 198,000. His chemistry showed a serum sodium 140, potassium 5.1, chloride 102, bicarbonate 35, anion gap of 3, BUN 26, creatinine 0.7, estimated GFR was 115 mL per minute. His glucose was 255, calcium was 8.7. Total bilirubin, AST, ALT, alkaline phosphatase were normal. Total protein was 6.8, albumin 2.7. His nasal screen for MRSA PCR was negative. ASSESSMENT: 1. Acute on chronic hypoxic hypercapnic respiratory failure. 2. Chronic obstructive pulmonary disease exacerbation. 3. Hypertension. 4. Chronic anemia that is normochromic, normocytic. 5. History of duodenal ulcer with hemorrhage. 6. Paroxysmal atrial fibrillation. 7. Psoriasis. 8. Mild hyperkalemia. PLAN: My plan is to discontinue the IV fluid and switch him to half normal saline at 100 mL per hour. Continue with IV antibiotic. We will monitor his blood sugar and adjust insulin as needed. Continue with mechanical ventilation and wean as tolerated. MILES MOJICA MD DR: BELINDA/елена JOB#: [id number] / [id number]
[2018-06-15] VITALS (24 sets, daily range): BP systolic 110–159; BP diastolic 67–91
[2018-06-15] MEDS: DEXMEDETOMIDINE 200 MCG in IV NORMAL SALINE 50ML 48 ML IV PRN ×12 (00:31→23:52)
[2018-06-15 05:14] LABS: CALCIUM 8.7 mg/dL (8.5-10.1); CREATININE 0.7 mg/dL (0.7-1.3); GFR 115.4; POTASSIUM 5.2 mmol/L (3.5-5.1)
[2018-06-15] MEDS: methylPREDNISolone SOD SUCC PF 40 MG/ML VIAL. IV SCH ×3 (05:42→21:56)
[2018-06-15] MEDS: MEROPENEM 1 GM in IV NORMAL SALINE 100ML 100 ML IV SCH ×3 (05:42→21:56)
[2018-06-15] MEDS: IV 1/2 NORMAL SALINE 1,000 ML IV SCH ×2 (07:09→15:28)
[2018-06-15] MEDS: FAMOTIDINE 20 MG/2 ML VIAL IVP SCH ×2 (08:05→21:55)
[2018-06-15] MEDS: CHLORHEXIDINE 0.12% 15 ML MOUTHWASH. MM SCH ×2 (08:05→21:56)
--- NOTE | 2018-06-15 08:05 | RAD ---
Portable chest, 06/15/2018: HISTORY: Respiratory failure Comparison is made to yesterday's study. The ET tip lies well above the talia. An NG tube extends at least to the level of the GE junction. The heart size is unchanged. Emphysematous change is evident in the right upper lobe. There is mild ongoing left basilar atelectasis/infiltrate. There is no evidence of pleural fluid. No new abnormality is detected. IMPRESSION: 1. Stable tube positions. 2. Mild unchanged retrocardiac left basilar infiltrate. Electronically signed by: Desmond Lind MD (06/15/2018 8:01 AM) [facility]
[2018-06-15 08:06] LABS: BASO % 0 % (0-3); EOS % 0 % (0-3); HEMOGLOBIN 11.4 g/dL (13.0-17.5); LYMPH # 0.4 x10^3/uL (1.0-4.8); LYMPH % 4 % (24-48); MEAN CORPUSCULAR HEMOGLOBIN 30 pg (25-35); MEAN CORPUSCULAR HGB CONC 31 g/dL (31-37); MEAN CORPUSCULAR VOLUME 96 fL (79-100); MONO # 0.6 x10^3/uL (0.0-1.1); MONO % 5 % (0-9); NEUT # 10.8 x10^3uL (1.8-7.7); NEUT % 91 % (31-73); PLATELET COUNT 221 x10^3/uL (140-400); RED BLOOD COUNT 3.87 x10^6/uL (4.30-5.70); RED CELL DISTRIBUTION WIDTH 14.1 % (11.5-14.5); WHITE BLOOD COUNT 11.9 x10^3/uL (4.0-11.0)
[2018-06-15] MEDS: ATENOLOL 50 MG TABLET. PO SCH (08:06)
[2018-06-15] MEDS: TRIAMCINOLONE ACETONIDE 0.1% TOPICAL OINTMENT 15GM TUBE. TP SCH ×2 (08:25→21:56)
[2018-06-15 08:34] LABS: BASE EXCESS ABG 9 mmol/L (-3-3); HCO3 ABG 35 mmol/L (21-28); PCO2 ABG 58 mmHg (35-46); PO2 ABG 96 mmHg (65-108); SAT O2 ABG 97 % (92-99)
[2018-06-15 08:36] LABS: FIO2 ABG 40
[2018-06-15] MEDS: INSULIN LISPRO 300 UNITS/3 ML INSULN.PEN. SQ SCH ×3 (08:41→16:37)
--- NOTE | 2018-06-15 08:41 | NUR ---
SS following up with discharge planning. Mirian from [facility] contacted SS and stated that [facility] will not approve LTAC unless pt has been on the vent for a minimum of twenty-one days with weaning trials and consideration of trach.
[2018-06-15] MEDS: LACTOBACILLUS RHAMNOSUS GG 1 CAPSULE. PO SCH ×2 (08:48→21:56)
--- NOTE | 2018-06-15 09:30 | PDOC ---
PULMONARY PROGRESS NOTES Subjective PT DID WELL ON PS NOT GOOD ON T-TUBE TRIAL Vitals Vital Signs Date Time Temp Pulse Resp B/P (MAP) Pulse Ox O2 Delivery O2 Flow Rate FiO2 06/15/18 09:10 Ventilator 06/15/18 09:00 10.0 06/15/18 08:06 79 06/15/18 07:31 100 06/15/18 06:00 16 149/85 (106) 06/15/18 04:00 98.6 98.6 General: Alert Lungs: Clear Cardiovascular: S1, S2 Abdomen: Soft Neuro Exam: Alert Extremities: Other (EDEMA) Skin: Warm Labs Laboratory Tests Test 06/14/18 05:15 06/14/18 08:00 06/14/18 11:20 06/14/18 11:51 White Blood Count 14.9 x10^3/uL (4.0-11.0) Red Blood Count 3.83 x10^6/uL (4.30-5.70) Hemoglobin 11.2 g/dL (13.0-17.5) Hematocrit 37.0 % (39.0-53.0) Mean Corpuscular Volume 97 fL (79-100) Mean Corpuscular Hemoglobin 29 pg (25-35) Mean Corpuscular Hemoglobin Concent 30 g/dL (31-37) Red Cell Distribution Width 14.4 % (11.5-14.5) Platelet Count 198 x10^3/uL (140-400) Sodium Level 140 mmol/L (136-145) Potassium Level 5.1 mmol/L (3.5-5.1) Chloride Level 102 mmol/L (98-107) Carbon Dioxide Level 35 mmol/L (21-32) Anion Gap 3 (6-14) Blood Urea Nitrogen 26 mg/dL (8-26) Creatinine 0.7 mg/dL (0.7-1.3) Estimated GFR (Cockcroft-Gault) 115.4 BUN/Creatinine Ratio 37 (6-20) Glucose Level 255 mg/dL (70-99) Calcium Level 8.7 mg/dL (8.5-10.1) Total Bilirubin 0.1 mg/dL (0.2-1.0) Aspartate Amino Transf (AST/SGOT) 17 U/L (15-37) Alanine Aminotransferase (ALT/SGPT) 17 U/L (16-63) Alkaline Phosphatase 51 U/L (46-116) Total Protein 6.8 g/dL (6.4-8.2) Albumin 2.7 g/dL (3.4-5.0) Albumin/Globulin Ratio 0.7 (1.0-1.7) O2 Saturation 95 % (92-99) 98 % (92-99) Arterial Blood pH 7.37 (7.35-7.45) 7.41 (7.35-7.45) Arterial Blood pCO2 at Patient Temp 68 mmHg (35-46) 48 mmHg (35-46) Arterial Blood pO2 at Patient Temp 89 mmHg (65-108) 122 mmHg (65-108) Arterial Blood HCO3 38 mmol/L (21-28) 30 mmol/L (21-28) Arterial Blood Base Excess 10 mmol/L (-3-3) 4 mmol/L (-3-3) FiO2 40 40 Glucose (Fingerstick) 229 mg/dL (70-99) Test 06/14/18 17:15 06/15/18 04:45 06/15/18 08:25 06/15/18 08:28 Glucose (Fingerstick) 183 mg/dL (70-99) 234 mg/dL (70-99) White Blood Count 11.9 x10^3/uL (4.0-11.0) Red Blood Count 3.87 x10^6/uL (4.30-5.70) Hemoglobin 11.4 g/dL (13.0-17.5) Hematocrit 37.0 % (39.0-53.0) Mean Corpuscular Volume 96 fL (79-100) Mean Corpuscular Hemoglobin 30 pg (25-35) Mean Corpuscular Hemoglobin Concent 31 g/dL (31-37) Red Cell Distribution Width 14.1 % (11.5-14.5) Platelet Count 221 x10^3/uL (140-400) Neutrophils (%) (Auto) 91 % (31-73) Lymphocytes (%) (Auto) 4 % (24-48) Monocytes (%) (Auto) 5 % (0-9) Eosinophils (%) (Auto) 0 % (0-3) Basophils (%) (Auto) 0 % (0-3) Neutrophils # (Auto) 10.8 x10^3uL (1.8-7.7) Lymphocytes # (Auto) 0.4 x10^3/uL (1.0-4.8) Monocytes # (Auto) 0.6 x10^3/uL (0.0-1.1) Eosinophils # (Auto) 0.0 x10^3/uL (0.0-0.7) Basophils # (Auto) 0.0 x10^3/uL (0.0-0.2) Sodium Level 141 mmol/L (136-145) Potassium Level 5.2 mmol/L (3.5-5.1) Chloride Level 103 mmol/L (98-107) Carbon Dioxide Level 36 mmol/L (21-32) Anion Gap 2 (6-14) Blood Urea Nitrogen 31 mg/dL (8-26) Creatinine 0.7 mg/dL (0.7-1.3) Estimated GFR (Cockcroft-Gault) 115.4 Glucose Level 238 mg/dL (70-99) Calcium Level 8.7 mg/dL (8.5-10.1) O2 Saturation 97 % (92-99) Arterial Blood pH 7.40 (7.35-7.45) Arterial Blood pCO2 at Patient Temp 58 mmHg (35-46) Arterial Blood pO2 at Patient Temp 96 mmHg (65-108) Arterial Blood HCO3 35 mmol/L (21-28) Arterial Blood Base Excess 9 mmol/L (-3-3) FiO2 40 Laboratory Tests Test 06/14/18 11:20 06/14/18 11:51 06/14/18 17:15 06/15/18 04:45 O2 Saturation 98 % (92-99) Arterial Blood pH 7.41 (7.35-7.45) Arterial Blood pCO2 at Patient Temp 48 mmHg (35-46) Arterial Blood pO2 at Patient Temp 122 mmHg (65-108) Arterial Blood HCO3 30 mmol/L (21-28) Arterial Blood Base Excess 4 mmol/L (-3-3) FiO2 40 Glucose (Fingerstick) 229 mg/dL (70-99) 183 mg/dL (70-99) White Blood Count 11.9 x10^3/uL (4.0-11.0) Red Blood Count 3.87 x10^6/uL (4.30-5.70) Hemoglobin 11.4 g/dL (13.0-17.5) Hematocrit 37.0 % (39.0-53.0) Mean Corpuscular Volume 96 fL (79-100) Mean Corpuscular Hemoglobin 30 pg (25-35) Mean Corpuscular Hemoglobin Concent 31 g/dL (31-37) Red Cell Distribution Width 14.1 % (11.5-14.5) Platelet Count 221 x10^3/uL (140-400) Neutrophils (%) (Auto) 91 % (31-73) Lymphocytes (%) (Auto) 4 % (24-48) Monocytes (%) (Auto) 5 % (0-9) Eosinophils (%) (Auto) 0 % (0-3) Basophils (%) (Auto) 0 % (0-3) Neutrophils # (Auto) 10.8 x10^3uL (1.8-7.7) Lymphocytes # (Auto) 0.4 x10^3/uL (1.0-4.8) Monocytes # (Auto) 0.6 x10^3/uL (0.0-1.1) Eosinophils # (Auto) 0.0 x10^3/uL (0.0-0.7) Basophils # (Auto) 0.0 x10^3/uL (0.0-0.2) Sodium Level 141 mmol/L (136-145) Potassium Level 5.2 mmol/L (3.5-5.1) Chloride Level 103 mmol/L (98-107) Carbon Dioxide Level 36 mmol/L (21-32) Anion Gap 2 (6-14) Blood Urea Nitrogen 31 mg/dL (8-26) Creatinine 0.7 mg/dL (0.7-1.3) Estimated GFR (Cockcroft-Gault) 115.4 Glucose Level 238 mg/dL (70-99) Calcium Level 8.7 mg/dL (8.5-10.1) Test 06/15/18 08:25 06/15/18 08:28 O2 Saturation 97 % (92-99) Arterial Blood pH 7.40 (7.35-7.45) Arterial Blood pCO2 at Patient Temp 58 mmHg (35-46) Arterial Blood pO2 at Patient Temp 96 mmHg (65-108) Arterial Blood HCO3 35 mmol/L (21-28) Arterial Blood Base Excess 9 mmol/L (-3-3) FiO2 40 Glucose (Fingerstick) 234 mg/dL (70-99) Medications Active Scripts Medications Dose Route/Sig Max Daily Dose Days Date Category Dose Instructions Percocet 5-325 Mg Tablet (Oxycodone/Acetaminophen) 1 Each Tablet 1 Tab PO PRN Q4-6HRS PRN 06/11/18 Reported Procrit (Epoetin Jeronimo) 10,000 Unit/1 Ml Vial 10,000 Unit IJ 3X/WEEK 06/11/18 Reported Triamcinolone Acetonide 0.1% Oint (Triamcinolone Acetonide) 15 Gm Oint...g. 1 Mayra TP BID 06/11/18 Reported MIX WITH EUCERIN DIRECTED BY PHYSICIAN Bisoprolol Fumarate 5 Mg Tablet 5 Mg PO DAILY 06/11/18 Reported Zofran (Ondansetron Hcl) 4 Mg Tablet 1 Tab PO Q6HRS 06/11/18 Reported Acidophilus Capsule (L. Acidophilus/Pectin, [place]) 1 Each Capsule 1 Each PO DAILY 06/11/18 Reported Proair Hfa (Albuterol Sulfate) 8.5 Gm Hfa.aer.ad 1 Puff INH PRN Q6HRS PRN 06/11/18 Reported Protonix (Pantoprazole Sodium) 20 Mg Tablet.dr 40 Mg PO DAILY 06/11/18 Reported Comments CXR REVIEWED NEW INFILTRATE Impression . IMPRESSION: 1. Acute on chronic hypoxemic hypercapnic respiratory failure. 2. Acute exacerbation of chronic obstructive pulmonary disease. 3. Tobacco dependence, in remission. 4. Hypertension. 5. Chronic anemia. 6. PNEUMONIA POSSIBLE GRAM NEG 7. ANXIETY Plan . WILL CONTINUE PS ATTEMPTED T TRIAL TIME TWO NOT READY FOR EXTUBATION D/W WILL CONTINUE PRECEDEX DVT PROPH NEEDS TO RETAIN CO2. 55-60 RANGE ANTIBX DVT AND GI PROPH SUSPECT PT C02 NORMALLY IN 60 RANGE ZIGGY SALAZAR MD Jun 15, 2018 09:30
[2018-06-15] MEDS: ENOXAPARIN 40 MG/0.4 ML SYRINGE. SQ SCH (14:48)
--- NOTE | 2018-06-15 19:26 | RAD ---
EXAM: Supine AP view of the abdomen DATE: 06/15/2018 6:59 PM INDICATION: ER PATIENT. OG TUBE PLACEMENT. PRIOR KUB COMPARISON: No Prior FINDINGS/ IMPRESSION: Enteric tube tip projects over the expected body of the stomach. Dilated loops of small and large bowel are partially profiled. Electronically signed by: Chad Chavez MD (06/15/2018 7:23 PM) [facility]
--- NOTE | 2018-06-15 23:39 | PN ---
DATE: 06/15/2018 SUBJECTIVE: The patient continues to be intubated on pressure support, maintaining his oxygen saturation at 94% on FiO2 of 40%. He is off sedation, awake, alert, apparently with a plan to extubate him after doing the blood gasses. PHYSICAL EXAMINATION Gases: GENERAL: When I examined him, he looked well and was clearly in no apparent respiratory distress, pale, but no jaundice, cyanosis, or thyromegaly. No jugular venous distention. No lower limb edema. VITAL SIGNS: His heart rate was 70, blood pressure 149/85, his temperature was 98.6, respiratory rate was 16 and oxygen saturation was 94% on FiO2 of 40% by pressure support. HEAD, EYES, EARS, NOSE AND THROAT: Showed normocephalic, atraumatic. He has orotracheal and orogastric tube in place. NECK: Supple. HEART: Showed normal first and second heart sounds. No gallop, rub or murmur. CHEST: Clear to auscultation. No crepitation or rhonchi. ABDOMEN: Distended, soft, nontender. No guarding or rigidity. No organomegaly. All hernial orifice intact. Bowel sounds normal. NEUROLOGIC: He was awake, alert, responding appropriately. All cranial nerves intact. He moves extremities without difficulty. His intake over the last 24 hours was 4800, output was 1300. LABORATORY DATA: As of this morning, his white cell count was 11,900; hemoglobin 11, hematocrit 37, MCV 96, and platelet count 221,000 with normal manual differential. His blood gases showed a pH of 7.41, pCO2 of 48, pO2 of 122, bicarbonate 30, and oxygen saturation was 98% on FiO2 of 40%. His chemistry showed a serum sodium 141, potassium 5.2, chloride 103, bicarbonate 36, anion gap of 2, BUN 31, creatinine 0.7, estimated GFR was 115 mL per minute. His glucose was 138 and calcium was 8.7. His nasal screen for MRSA by PCR was negative. ASSESSMENT: 1. Acute on chronic hypoxic hypercapnic respiratory failure. 2. Chronic obstructive pulmonary disease exacerbation. 3. Hypertension. 4. Chronic anemia that is normochromic, normocytic. 5. History of duodenal ulcer with hemorrhage. 6. Paroxysmal atrial fibrillation. 7. Psoriasis. 8. Mild hyperkalemia with potassium of 5.2. PLAN: To continue with the weaning trial, continue the IV antibiotic. Continue to monitor his blood sugar and adjust insulin as needed. MILES MOJICA MD DR: BELINDA/елена JOB#: [id number] / [id number]
[2018-06-16] VITALS (22 sets, daily range): BP systolic 91–141; BP diastolic 59–95
[2018-06-16] MEDS: DEXMEDETOMIDINE 200 MCG in IV NORMAL SALINE 50ML 48 ML IV PRN ×9 (01:50→21:26)
[2018-06-16] MEDS: MEROPENEM 1 GM in IV NORMAL SALINE 100ML 100 ML IV SCH ×3 (06:10→20:50)
[2018-06-16] MEDS: methylPREDNISolone SOD SUCC PF 40 MG/ML VIAL. IV SCH ×3 (06:10→21:10)
[2018-06-16 07:09] LABS: CALCIUM 8.4 mg/dL (8.5-10.1); CREATININE 0.5 mg/dL (0.7-1.3); GFR 170.2
[2018-06-16 07:17] LABS: POTASSIUM 5.2 mmol/L (3.5-5.1)
--- NOTE | 2018-06-16 07:44 | RAD ---
PORTABLE CHEST 1V History: Tubes Comparison: June 15, 2018 Findings: AP portable view of the chest is submitted. There is enteric catheter which courses to at least the level of the distal esophagus not fully included. Endotracheal tube tip is believed to terminate about 5 cm from talia. There is no pneumothorax. There is emphysema. There is no significant pleural fluid. Cardiac silhouette is unchanged. There is mild reticular opacity at lung bases bilaterally as seen previously, possible infiltrate more medially of the left lung base as seen previously. Impression: 1. There is persistent reticular opacity near lung bases possibly atelectasis, left base infiltrate not excluded. There is emphysema. There are support catheters and tubes as stated. Electronically signed by: Watson Estrada MD (06/16/2018 7:41 AM) [facility]
[2018-06-16] MEDS: INSULIN LISPRO 300 UNITS/3 ML INSULN.PEN. SQ SCH ×4 (09:22→23:33)
[2018-06-16] MEDS: LACTOBACILLUS RHAMNOSUS GG 1 CAPSULE. PO SCH ×2 (09:22→20:49)
[2018-06-16] MEDS: FAMOTIDINE 20 MG/2 ML VIAL IVP SCH ×2 (09:23→20:49)
[2018-06-16] MEDS: CHLORHEXIDINE 0.12% 15 ML MOUTHWASH. MM SCH ×2 (09:23→20:49)
[2018-06-16] MEDS: ATENOLOL 50 MG TABLET. PO SCH (09:23)
[2018-06-16] MEDS: TRIAMCINOLONE ACETONIDE 0.1% TOPICAL OINTMENT 15GM TUBE. TP SCH ×2 (09:23→20:50)
[2018-06-16 09:32] LABS: BASE EXCESS ABG 9 mmol/L (-3-3); HCO3 ABG 35 mmol/L (21-28); PCO2 ABG 59 mmHg (35-46); PO2 ABG 84 mmHg (65-108); SAT O2 ABG 96 % (92-99)
[2018-06-16 09:34] LABS: FIO2 ABG 40%
--- NOTE | 2018-06-16 10:39 | PDOC ---
PULMONARY PROGRESS NOTES Subjective awake on ps Vitals Vital Signs Date Time Temp Pulse Resp B/P (MAP) Pulse Ox O2 Delivery O2 Flow Rate FiO2 06/16/18 09:23 77 120/73 06/16/18 08:51 100 Ventilator 06/16/18 08:00 18 06/16/18 07:00 97.5 97.5 06/15/18 12:51 10.0 General: Alert Lungs: Clear Cardiovascular: S1, S2 Abdomen: Soft Neuro Exam: Alert Extremities: Other (EDEMA) Skin: Warm Labs Laboratory Tests Test 06/14/18 11:20 06/14/18 11:51 06/14/18 17:15 06/15/18 04:45 O2 Saturation 98 % (92-99) Arterial Blood pH 7.41 (7.35-7.45) Arterial Blood pCO2 at Patient Temp 48 mmHg (35-46) Arterial Blood pO2 at Patient Temp 122 mmHg (65-108) Arterial Blood HCO3 30 mmol/L (21-28) Arterial Blood Base Excess 4 mmol/L (-3-3) FiO2 40 Glucose (Fingerstick) 229 mg/dL (70-99) 183 mg/dL (70-99) White Blood Count 11.9 x10^3/uL (4.0-11.0) Red Blood Count 3.87 x10^6/uL (4.30-5.70) Hemoglobin 11.4 g/dL (13.0-17.5) Hematocrit 37.0 % (39.0-53.0) Mean Corpuscular Volume 96 fL (79-100) Mean Corpuscular Hemoglobin 30 pg (25-35) Mean Corpuscular Hemoglobin Concent 31 g/dL (31-37) Red Cell Distribution Width 14.1 % (11.5-14.5) Platelet Count 221 x10^3/uL (140-400) Neutrophils (%) (Auto) 91 % (31-73) Lymphocytes (%) (Auto) 4 % (24-48) Monocytes (%) (Auto) 5 % (0-9) Eosinophils (%) (Auto) 0 % (0-3) Basophils (%) (Auto) 0 % (0-3) Neutrophils # (Auto) 10.8 x10^3uL (1.8-7.7) Lymphocytes # (Auto) 0.4 x10^3/uL (1.0-4.8) Monocytes # (Auto) 0.6 x10^3/uL (0.0-1.1) Eosinophils # (Auto) 0.0 x10^3/uL (0.0-0.7) Basophils # (Auto) 0.0 x10^3/uL (0.0-0.2) Sodium Level 141 mmol/L (136-145) Potassium Level 5.2 mmol/L (3.5-5.1) Chloride Level 103 mmol/L (98-107) Carbon Dioxide Level 36 mmol/L (21-32) Anion Gap 2 (6-14) Blood Urea Nitrogen 31 mg/dL (8-26) Creatinine 0.7 mg/dL (0.7-1.3) Estimated GFR (Cockcroft-Gault) 115.4 Glucose Level 238 mg/dL (70-99) Calcium Level 8.7 mg/dL (8.5-10.1) Test 06/15/18 08:25 06/15/18 08:28 06/15/18 16:32 06/16/18 06:30 O2 Saturation 97 % (92-99) Arterial Blood pH 7.40 (7.35-7.45) Arterial Blood pCO2 at Patient Temp 58 mmHg (35-46) Arterial Blood pO2 at Patient Temp 96 mmHg (65-108) Arterial Blood HCO3 35 mmol/L (21-28) Arterial Blood Base Excess 9 mmol/L (-3-3) FiO2 40 Glucose (Fingerstick) 234 mg/dL (70-99) 219 mg/dL (70-99) Sodium Level 135 mmol/L (136-145) Potassium Level 5.2 mmol/L (3.5-5.1) Chloride Level 98 mmol/L (98-107) Carbon Dioxide Level 33 mmol/L (21-32) Anion Gap 4 (6-14) Blood Urea Nitrogen 31 mg/dL (8-26) Creatinine 0.5 mg/dL (0.7-1.3) Estimated GFR (Cockcroft-Gault) 170.2 Glucose Level 196 mg/dL (70-99) Calcium Level 8.4 mg/dL (8.5-10.1) Test 06/16/18 09:00 06/16/18 09:21 O2 Saturation 96 % (92-99) Arterial Blood pH 7.40 (7.35-7.45) Arterial Blood pCO2 at Patient Temp 59 mmHg (35-46) Arterial Blood pO2 at Patient Temp 84 mmHg (65-108) Arterial Blood HCO3 35 mmol/L (21-28) Arterial Blood Base Excess 9 mmol/L (-3-3) FiO2 40% Glucose (Fingerstick) 234 mg/dL (70-99) Laboratory Tests Test 06/15/18 16:32 06/16/18 06:30 06/16/18 09:00 06/16/18 09:21 Glucose (Fingerstick) 219 mg/dL (70-99) 234 mg/dL (70-99) Sodium Level 135 mmol/L (136-145) Potassium Level 5.2 mmol/L (3.5-5.1) Chloride Level 98 mmol/L (98-107) Carbon Dioxide Level 33 mmol/L (21-32) Anion Gap 4 (6-14) Blood Urea Nitrogen 31 mg/dL (8-26) Creatinine 0.5 mg/dL (0.7-1.3) Estimated GFR (Cockcroft-Gault) 170.2 Glucose Level 196 mg/dL (70-99) Calcium Level 8.4 mg/dL (8.5-10.1) O2 Saturation 96 % (92-99) Arterial Blood pH 7.40 (7.35-7.45) Arterial Blood pCO2 at Patient Temp 59 mmHg (35-46) Arterial Blood pO2 at Patient Temp 84 mmHg (65-108) Arterial Blood HCO3 35 mmol/L (21-28) Arterial Blood Base Excess 9 mmol/L (-3-3) FiO2 40% Medications Active Scripts Medications Dose Route/Sig Max Daily Dose Days Date Category Dose Instructions Percocet 5-325 Mg Tablet (Oxycodone/Acetaminophen) 1 Each Tablet 1 Tab PO PRN Q4-6HRS PRN 06/11/18 Reported Procrit (Epoetin Jeronimo) 10,000 Unit/1 Ml Vial 10,000 Unit IJ 3X/WEEK 06/11/18 Reported Triamcinolone Acetonide 0.1% Oint (Triamcinolone Acetonide) 15 Gm Oint...g. 1 Mayra TP BID 06/11/18 Reported MIX WITH EUCERIN DIRECTED BY PHYSICIAN Bisoprolol Fumarate 5 Mg Tablet 5 Mg PO DAILY 06/11/18 Reported Zofran (Ondansetron Hcl) 4 Mg Tablet 1 Tab PO Q6HRS 06/11/18 Reported Acidophilus Capsule (L. Acidophilus/Pectin, [place]) 1 Each Capsule 1 Each PO DAILY 06/11/18 Reported Proair Hfa (Albuterol Sulfate) 8.5 Gm Hfa.aer.ad 1 Puff INH PRN Q6HRS PRN 06/11/18 Reported Protonix (Pantoprazole Sodium) 20 Mg Tablet.dr 40 Mg PO DAILY 06/11/18 Reported Comments CXR REVIEWED NEW INFILTRATE Impression . IMPRESSION: 1. Acute on chronic hypoxemic hypercapnic respiratory failure. 2. Acute exacerbation of chronic obstructive pulmonary disease. 3. Tobacco dependence, in remission. 4. Hypertension. 5. Chronic anemia. 6. PNEUMONIA POSSIBLE GRAM NEG 7. ANXIETY Plan . T TRIAL TODAY D/W RN ABG NOTED DVT PROPH NEEDS TO RETAIN CO2. 55-60 RANGE ANTIBX DVT AND GI PROPH SUSPECT PT C02 NORMALLY IN 60 RANGE ZIGGY SALAZAR MD Jun 16, 2018 10:39
--- NOTE | 2018-06-16 11:45 | NUR ---
FACULTY CO-SIGN I have reviewed the documentation by Shadia Cabrera nursing resident, [facility]: Addendum: 06/16/18 at 1145 by THELMA DOMINGUEZ RN Amended: Links added.
[2018-06-16 12:16] LABS: BASE EXCESS ABG 9 mmol/L (-3-3); HCO3 ABG 38 mmol/L (21-28); PO2 ABG 73 mmHg (65-108); SAT O2 ABG 93 % (92-99)
[2018-06-16 12:18] LABS: FIO2 ABG 40% T-TUBE; PCO2 ABG 73 mmHg (35-46)
[2018-06-16] MEDS ORDERED: SUCR1TAB PO (14:59)
[2018-06-16] MEDS: ENOXAPARIN 40 MG/0.4 ML SYRINGE. SQ SCH (15:21)
--- NOTE | 2018-06-16 22:42 | PN ---
DATE: 06/16/2018 INCOMPLETE DICTATION SUBJECTIVE: The patient did not do well yesterday on a T-tube trial, continue to be sedated and mechanically ventilated. He apparently has been restless with his orogastric tube and he is now on mittens. PHYSICAL EXAMINATION: GENERAL: When I examined him this morning, he was resting slightly propped up, sleeping comfortably in no apparent distress. No pallor, jaundice, cyanosis, or thyromegaly. No jugular venous distension. No lower limb edema. VITAL SIGNS: Her heart rate was 70, blood pressure 139/76, temperature was 98.6, respiratory rate 20, and oxygen saturation was 99% on FiO2 of 40%. HEAD, EYES, DICTATION ENDS ABRUPTLY HERE. MILES MOJICA MD DR: BELINDA/елена JOB#: [id number] / [id number]
--- NOTE | 2018-06-16 22:52 | PN ---
DATE: ADDENDUM SUBJECTIVE: HEAD, EYES, EAR, NOSE, AND THROAT: Normocephalic, atraumatic. He has orotracheal and orogastric tube in place. NECK: Supple. HEART: Showed normal first and second heart sounds with no gallop, rub, or murmur. CHEST: Clear to auscultation. No crepitation or rhonchi. ABDOMEN: Distended, soft, nontender. No guarding or rigidity. No organomegaly. All hernial orifices intact. Bowel sounds normal. NEUROLOGIC: He is sedated. He moves extremities spontaneously. His intake over the last 24 hours was 5500, output was 1965. LABORATORY DATA: As of this morning, his serum sodium was 135, potassium 5.2, chloride 98, bicarbonate 33, anion gap of 4, BUN 31, creatinine 0.5, estimated GFR was 170 mL per minute, his glucose 196, and calcium was 8.4. ASSESSMENT: 1. Acute on chronic hypoxic hypercapnic respiratory failure. The patient continued to be on mechanical ventilation and has failed his T-tube trial. 2. Chronic obstructive pulmonary disease exacerbation. 3. Hypertension. 4. Chronic anemia that is normochromic, normocytic. 5. History of duodenal ulcer with hemorrhage. 6. Paroxysmal atrial fibrillation. 7. Psoriasis. 8. Mild hyperkalemia with serum potassium of 5.2. PLAN: To continue with weaning trial if able, otherwise probably leaving up with the tracheostomy tube. Continue with IV antibiotic. His vancomycin was discontinued. Continue to monitor his blood sugar and adjust insulin as needed. MILES MOJICA MD DR: BELINDA/елена JOB#: [id number] / [id number]
[2018-06-17] VITALS (24 sets, daily range): BP systolic 101–158; BP diastolic 57–91
[2018-06-17] MEDS: DEXMEDETOMIDINE 200 MCG in IV NORMAL SALINE 50ML 48 ML IV PRN ×3 (00:01→05:08)
[2018-06-17] MEDS: MEROPENEM 1 GM in IV NORMAL SALINE 100ML 100 ML IV SCH ×3 (05:13→21:09)
[2018-06-17] MEDS: methylPREDNISolone SOD SUCC PF 40 MG/ML VIAL. IV SCH ×3 (05:14→21:09)
[2018-06-17 05:46] LABS: CALCIUM 8.7 mg/dL (8.5-10.1); CREATININE 0.5 mg/dL (0.7-1.3); GFR 170.2; MAGNESIUM 2.2 mg/dL (1.8-2.4); POTASSIUM 4.7 mmol/L (3.5-5.1)
[2018-06-17] MEDS: INSULIN LISPRO 300 UNITS/3 ML INSULN.PEN. SQ SCH ×2 (05:49→17:00)
--- NOTE | 2018-06-17 08:02 | RAD ---
Chest AP portable at 0729: Reason for examination: Respiratory failure. Intubated. Verify tubes. Comparison is made to previous study dated 06/16/2018. The endotracheal tube remains in place with the tip below the thoracic inlet approximately 7 cm above the talia. The enteric tube remains present with the tip followed to at least the distal esophagus but the upper abdomen is not optimally included on the exam to verify where the tip of the catheter lies. The heart size is upper normal. Mediastinum is unremarkable. Lung patino are hyperaerated with emphysematous changes in the apices. No consolidated infiltrates or pleural effusions are seen. IMPRESSION: Hyperaerated lungs with emphysematous changes at the apices. No significant change in the position of the endotracheal or enteric tubes. Electronically signed by: Nimisha Barraza MD (06/17/2018 7:59 AM) [facility]
[2018-06-17] MEDS: FAMOTIDINE 20 MG/2 ML VIAL IVP SCH ×2 (08:25→21:08)
[2018-06-17] MEDS: LACTOBACILLUS RHAMNOSUS GG 1 CAPSULE. PO SCH ×2 (08:25→20:38)
[2018-06-17] MEDS: TRIAMCINOLONE ACETONIDE 0.1% TOPICAL OINTMENT 15GM TUBE. TP SCH ×2 (08:26→20:39)
[2018-06-17] MEDS: CHLORHEXIDINE 0.12% 15 ML MOUTHWASH. MM SCH (08:26)
[2018-06-17] MEDS: ATENOLOL 50 MG TABLET. PO SCH (08:26)
[2018-06-17 09:16] LABS: BASE EXCESS ABG 14 mmol/L (-3-3); HCO3 ABG 42 mmol/L (21-28); PO2 ABG 75 mmHg (65-108); SAT O2 ABG 95 % (92-99)
[2018-06-17 09:25] LABS: PCO2 ABG 66 mmHg (35-46)
[2018-06-17 09:26] LABS: FIO2 ABG 35%
--- NOTE | 2018-06-17 10:07 | NUR ---
Patient extubated at 0945, placed on 3LNC. In no apparent distress. Will continue to monitor.
[2018-06-17] MEDS: IV NORMAL SALINE 1000ML BAG 1,000 ML IV SCH ×2 (10:43→21:09)
[2018-06-17] MEDS: ALBUTEROL SULFATE 2.5 MG/3 ML NEBU. INH PRN (12:09)
--- NOTE | 2018-06-17 12:16 | PDOC ---
PULMONARY PROGRESS NOTES Subjective DID WELL ON TRIAL EXTUBATED NOW NO INCREASE SOA NO CHEST PAIN Vitals Vital Signs Date Time Temp Pulse Resp B/P (MAP) Pulse Ox O2 Delivery O2 Flow Rate FiO2 06/17/18 12:11 92 Nasal Cannula 2.0 06/17/18 11:00 73 16 114/75 (88) 06/17/18 08:00 98.1 98.1 ROS: No Nausea, No Chest Pain, No Abdominal Pain, No Increase Cough General: Alert Lungs: Clear Cardiovascular: S1, S2 Abdomen: Soft Neuro Exam: Alert Extremities: Other (EDEMA) Skin: Warm Labs Laboratory Tests Test 06/15/18 16:32 06/16/18 06:30 06/16/18 09:00 06/16/18 09:21 Glucose (Fingerstick) 219 mg/dL (70-99) 234 mg/dL (70-99) Sodium Level 135 mmol/L (136-145) Potassium Level 5.2 mmol/L (3.5-5.1) Chloride Level 98 mmol/L (98-107) Carbon Dioxide Level 33 mmol/L (21-32) Anion Gap 4 (6-14) Blood Urea Nitrogen 31 mg/dL (8-26) Creatinine 0.5 mg/dL (0.7-1.3) Estimated GFR (Cockcroft-Gault) 170.2 Glucose Level 196 mg/dL (70-99) Calcium Level 8.4 mg/dL (8.5-10.1) O2 Saturation 96 % (92-99) Arterial Blood pH 7.40 (7.35-7.45) Arterial Blood pCO2 at Patient Temp 59 mmHg (35-46) Arterial Blood pO2 at Patient Temp 84 mmHg (65-108) Arterial Blood HCO3 35 mmol/L (21-28) Arterial Blood Base Excess 9 mmol/L (-3-3) FiO2 40% Test 06/16/18 12:03 06/16/18 12:52 06/16/18 17:34 06/16/18 20:50 O2 Saturation 93 % (92-99) Arterial Blood pH 7.33 (7.35-7.45) Arterial Blood pCO2 at Patient Temp 73 mmHg (35-46) Arterial Blood pO2 at Patient Temp 73 mmHg (65-108) Arterial Blood HCO3 38 mmol/L (21-28) Arterial Blood Base Excess 9 mmol/L (-3-3) FiO2 40% t-tube Glucose (Fingerstick) 185 mg/dL (70-99) 244 mg/dL (70-99) 157 mg/dL (70-99) Test 06/16/18 23:31 06/17/18 05:00 06/17/18 05:42 06/17/18 09:10 Glucose (Fingerstick) 162 mg/dL (70-99) 185 mg/dL (70-99) Sodium Level 137 mmol/L (136-145) Potassium Level 4.7 mmol/L (3.5-5.1) Chloride Level 96 mmol/L (98-107) Carbon Dioxide Level 40 mmol/L (21-32) Anion Gap 1 (6-14) Blood Urea Nitrogen 32 mg/dL (8-26) Creatinine 0.5 mg/dL (0.7-1.3) Estimated GFR (Cockcroft-Gault) 170.2 Glucose Level 195 mg/dL (70-99) Calcium Level 8.7 mg/dL (8.5-10.1) Magnesium Level 2.2 mg/dL (1.8-2.4) O2 Saturation 95 % (92-99) Arterial Blood pH 7.42 (7.35-7.45) Arterial Blood pCO2 at Patient Temp 66 mmHg (35-46) Arterial Blood pO2 at Patient Temp 75 mmHg (65-108) Arterial Blood HCO3 42 mmol/L (21-28) Arterial Blood Base Excess 14 mmol/L (-3-3) FiO2 35% Laboratory Tests Test 06/16/18 12:52 06/16/18 17:34 06/16/18 20:50 06/16/18 23:31 Glucose (Fingerstick) 185 mg/dL (70-99) 244 mg/dL (70-99) 157 mg/dL (70-99) 162 mg/dL (70-99) Test 06/17/18 05:00 06/17/18 05:42 06/17/18 09:10 Sodium Level 137 mmol/L (136-145) Potassium Level 4.7 mmol/L (3.5-5.1) Chloride Level 96 mmol/L (98-107) Carbon Dioxide Level 40 mmol/L (21-32) Anion Gap 1 (6-14) Blood Urea Nitrogen 32 mg/dL (8-26) Creatinine 0.5 mg/dL (0.7-1.3) Estimated GFR (Cockcroft-Gault) 170.2 Glucose Level 195 mg/dL (70-99) Calcium Level 8.7 mg/dL (8.5-10.1) Magnesium Level 2.2 mg/dL (1.8-2.4) Glucose (Fingerstick) 185 mg/dL (70-99) O2 Saturation 95 % (92-99) Arterial Blood pH 7.42 (7.35-7.45) Arterial Blood pCO2 at Patient Temp 66 mmHg (35-46) Arterial Blood pO2 at Patient Temp 75 mmHg (65-108) Arterial Blood HCO3 42 mmol/L (21-28) Arterial Blood Base Excess 14 mmol/L (-3-3) FiO2 35% Medications Active Scripts Medications Dose Route/Sig Max Daily Dose Days Date Category Dose Instructions Percocet 5-325 Mg Tablet (Oxycodone/Acetaminophen) 1 Each Tablet 1 Tab PO PRN Q4-6HRS PRN 06/11/18 Reported Procrit (Epoetin Jeronimo) 10,000 Unit/1 Ml Vial 10,000 Unit IJ 3X/WEEK 06/11/18 Reported Triamcinolone Acetonide 0.1% Oint (Triamcinolone Acetonide) 15 Gm Oint...g. 1 Mayra TP BID 06/11/18 Reported MIX WITH EUCERIN DIRECTED BY PHYSICIAN Bisoprolol Fumarate 5 Mg Tablet 5 Mg PO DAILY 06/11/18 Reported Zofran (Ondansetron Hcl) 4 Mg Tablet 1 Tab PO Q6HRS 06/11/18 Reported Acidophilus Capsule (L. Acidophilus/Pectin, [place]) 1 Each Capsule 1 Each PO DAILY 06/11/18 Reported Proair Hfa (Albuterol Sulfate) 8.5 Gm Hfa.aer.ad 1 Puff INH PRN Q6HRS PRN 06/11/18 Reported Protonix (Pantoprazole Sodium) 20 Mg Tablet.dr 40 Mg PO DAILY 06/11/18 Reported Comments CXR REVIEWED NEW INFILTRATE Impression . IMPRESSION: 1. Acute on chronic hypoxemic hypercapnic respiratory failure. 2. Acute exacerbation of chronic obstructive pulmonary disease. 3. Tobacco dependence, in remission. 4. Hypertension. 5. Chronic anemia. 6. PNEUMONIA POSSIBLE GRAM NEG 7. ANXIETY Plan . T TRIAL TODAY DID WELL EXTUBATE 06/17 UP TO CHAIR PT OT APPARENTLY PT HAS ?BIPAP AT HOME ABG NOTED DVT PROPH ZIGGY SALAZAR MD Jun 17, 2018 12:16
[2018-06-17] MEDS: ENOXAPARIN 40 MG/0.4 ML SYRINGE. SQ SCH (13:55)
[2018-06-18] VITALS (13 sets, daily range): BP systolic 133–173; BP diastolic 65–94
--- NOTE | 2018-06-18 00:09 | PN ---
DATE: 06/17/2018 SUBJECTIVE: The patient is resting, slightly propped up in bed, no apparent distress. He is awake, alert. On pressure support, maintaining his oxygen saturation 97% on FiO2 of 40%. Questioning him, he denied any complaint. The nursing staff did not voice any concerns that blood gas will be done today and decision was made to extubate him or not. PHYSICAL EXAMINATION: GENERAL: When I examined him, he looked well and was clearly in no apparent respiratory distress, slightly pale, no jaundice, cyanosis or thyromegaly. No jugular venous distension. No limb edema. VITAL SIGNS: His heart rate was 70, blood pressure was 114/62, temperature was 98.6, respiratory rate was 20 and oxygen saturation was 97% on FiO2 of 40%. HEAD, EYES, EARS, NOSE AND THROAT: Showed normocephalic and atraumatic. Has orogastric and orotracheal tube in place. NECK: Supple. HEART: Showed normal first and second sounds. No gallop or murmur. CHEST: Clear to auscultation. No crepitation or rhonchi. ABDOMEN: Slightly distended, soft and nontender. NEUROLOGICAL: He is awake, alert, responding appropriately. Cranial nerves intact. He moves extremities without difficulty. His intake was 4100, output was 3200. LABORATORY DATA: Lab work this morning showed a white cell count of 11,900; hemoglobin 11; hematocrit 37; MCV 96 and platelet count 221,000. His blood gas this morning as of yesterday showed a pH of 7.33, pCO2 of 73, pO2 of 73, bicarbonate 38 and oxygen saturation was 93% on FiO2 of 40%. His chemistry showed a serum sodium 137, potassium 4.7, chloride 96, bicarbonate 40, anion gap of 1, BUN 32, creatinine 0.5, estimated GFR was 170 mL per minute, his glucose 195, calcium was 8.7 and magnesium was 2.2. ASSESSMENT: 1. Gyjtw-[id number] hypoxic hypercapnic respiratory failure, the patient is currently on pressure support, maintaining his oxygen saturation at 97% on FiO2 40%. 2. Chronic obstructive pulmonary disease exacerbation. 3. Hypertension. 4. Chronic anemia that is normochromic and normocytic. 5. History of duodenal ulcer with hemorrhage. 6. Paroxysmal atrial fibrillation. 7. Psoriasis. 8. Mild hyperkalemia that has resolved. PLAN: Obviously to continue with the pressure support. He is scheduled for arterial blood gases with a plan to extubate him if the blood gas is favorable, otherwise continued mechanical ventilation. Continue nutritional support. MILES MOJICA MD DR: BELINDA/елена JOB#: [id number] / [id number]
[2018-06-18] MEDS: MEROPENEM 1 GM in IV NORMAL SALINE 100ML 100 ML IV SCH ×3 (05:34→21:22)
[2018-06-18] MEDS: methylPREDNISolone SOD SUCC PF 40 MG/ML VIAL. IV SCH ×2 (05:34→17:35)
[2018-06-18] MEDS: INSULIN LISPRO 300 UNITS/3 ML INSULN.PEN. SQ SCH ×3 (08:00→17:00)
--- NOTE | 2018-06-18 08:58 | PDOC ---
PULMONARY PROGRESS NOTES Subjective EXTUBATED 06/17 NOT MORE SOA Vitals Vital Signs Date Time Temp Pulse Resp B/P (MAP) Pulse Ox O2 Delivery O2 Flow Rate FiO2 06/18/18 08:04 Nasal Cannula 2.0 06/18/18 08:00 96 18 165/70 (101) 06/18/18 07:00 98.0 97 98.0 ROS: No Nausea, No Chest Pain, No Abdominal Pain, No Increase Cough General: Alert Lungs: Clear Cardiovascular: S1, S2 Abdomen: Soft Neuro Exam: Alert Extremities: Other (EDEMA) Skin: Warm Labs Laboratory Tests Test 06/16/18 09:00 06/16/18 09:21 06/16/18 12:03 06/16/18 12:52 O2 Saturation 96 % (92-99) 93 % (92-99) Arterial Blood pH 7.40 (7.35-7.45) 7.33 (7.35-7.45) Arterial Blood pCO2 at Patient Temp 59 mmHg (35-46) 73 mmHg (35-46) Arterial Blood pO2 at Patient Temp 84 mmHg (65-108) 73 mmHg (65-108) Arterial Blood HCO3 35 mmol/L (21-28) 38 mmol/L (21-28) Arterial Blood Base Excess 9 mmol/L (-3-3) 9 mmol/L (-3-3) FiO2 40% 40% t-tube Glucose (Fingerstick) 234 mg/dL (70-99) 185 mg/dL (70-99) Test 06/16/18 17:34 06/16/18 20:50 06/16/18 23:31 06/17/18 05:00 Glucose (Fingerstick) 244 mg/dL (70-99) 157 mg/dL (70-99) 162 mg/dL (70-99) Sodium Level 137 mmol/L (136-145) Potassium Level 4.7 mmol/L (3.5-5.1) Chloride Level 96 mmol/L (98-107) Carbon Dioxide Level 40 mmol/L (21-32) Anion Gap 1 (6-14) Blood Urea Nitrogen 32 mg/dL (8-26) Creatinine 0.5 mg/dL (0.7-1.3) Estimated GFR (Cockcroft-Gault) 170.2 Glucose Level 195 mg/dL (70-99) Calcium Level 8.7 mg/dL (8.5-10.1) Magnesium Level 2.2 mg/dL (1.8-2.4) Test 06/17/18 05:42 06/17/18 09:10 Glucose (Fingerstick) 185 mg/dL (70-99) O2 Saturation 95 % (92-99) Arterial Blood pH 7.42 (7.35-7.45) Arterial Blood pCO2 at Patient Temp 66 mmHg (35-46) Arterial Blood pO2 at Patient Temp 75 mmHg (65-108) Arterial Blood HCO3 42 mmol/L (21-28) Arterial Blood Base Excess 14 mmol/L (-3-3) FiO2 35% Laboratory Tests Test 06/17/18 09:10 O2 Saturation 95 % (92-99) Arterial Blood pH 7.42 (7.35-7.45) Arterial Blood pCO2 at Patient Temp 66 mmHg (35-46) Arterial Blood pO2 at Patient Temp 75 mmHg (65-108) Arterial Blood HCO3 42 mmol/L (21-28) Arterial Blood Base Excess 14 mmol/L (-3-3) FiO2 35% Medications Active Scripts Medications Dose Route/Sig Max Daily Dose Days Date Category Dose Instructions Percocet 5-325 Mg Tablet (Oxycodone/Acetaminophen) 1 Each Tablet 1 Tab PO PRN Q4-6HRS PRN 06/11/18 Reported Procrit (Epoetin Jeronimo) 10,000 Unit/1 Ml Vial 10,000 Unit IJ 3X/WEEK 06/11/18 Reported Triamcinolone Acetonide 0.1% Oint (Triamcinolone Acetonide) 15 Gm Oint...g. 1 Mayra TP BID 06/11/18 Reported MIX WITH EUCERIN DIRECTED BY PHYSICIAN Bisoprolol Fumarate 5 Mg Tablet 5 Mg PO DAILY 06/11/18 Reported Zofran (Ondansetron Hcl) 4 Mg Tablet 1 Tab PO Q6HRS 06/11/18 Reported Acidophilus Capsule (L. Acidophilus/Pectin, [place]) 1 Each Capsule 1 Each PO DAILY 06/11/18 Reported Proair Hfa (Albuterol Sulfate) 8.5 Gm Hfa.aer.ad 1 Puff INH PRN Q6HRS PRN 06/11/18 Reported Protonix (Pantoprazole Sodium) 20 Mg Tablet.dr 40 Mg PO DAILY 3/25/19 Reported Comments CXR REVIEWED NEW INFILTRATE Impression . IMPRESSION: 1. Acute on chronic hypoxemic hypercapnic respiratory failure. 2. Acute exacerbation of chronic obstructive pulmonary disease. 3. Tobacco dependence, in remission. 4. Hypertension. 5. Chronic anemia. 6. PNEUMONIA POSSIBLE GRAM NEG 7. ANXIETY Plan . EXTUBATED 06/17 TRANSFER TO FLOOR D/W UP TO CHAIR PT OT MAY NEED REHAB APPARENTLY PT HAS ?BIPAP AT HOME DVT PROPH ZIGGY SALAZAR MD Jun 18, 2018 08:58
[2018-06-18] MEDS: LACTOBACILLUS RHAMNOSUS GG 1 CAPSULE. PO SCH ×2 (09:00→21:00)
[2018-06-18] MEDS: ATENOLOL 50 MG TABLET. PO SCH (09:00)
[2018-06-18] MEDS: FAMOTIDINE 20 MG/2 ML VIAL IVP SCH ×2 (09:31→21:22)
[2018-06-18] MEDS: TRIAMCINOLONE ACETONIDE 0.1% TOPICAL OINTMENT 15GM TUBE. TP SCH ×2 (09:32→21:00)
[2018-06-18] MEDS: ENOXAPARIN 40 MG/0.4 ML SYRINGE. SQ SCH (13:42)
--- NOTE | 2018-06-18 14:27 | NUR ---
report given to PEDRO Pelayo on . meds and labs reviewed. transportation called to move pt to room 671
--- NOTE | 2018-06-18 14:40 | NUR ---
SS following up with discharge planning. Pt transferred to room 671. Pt is currently off the vent and requiring nasal cannula oxygen. PT/OT ordered. SS will await PT/OT evaluations and recommendations and will proceed accordingly with discharge planning.
--- NOTE | 2018-06-18 17:00 | NUR ---
Patient transferred from ICU to [address] [place] [address] at 1500, report received from Gema VASQUEZ. Patient is awake, alert and oriented, no dyspnea, no complaints other than throat discomfort from extubation.
[2018-06-18] MEDS: IV NORMAL SALINE 1000ML BAG 1,000 ML IV SCH (17:36)
[2018-06-18] MEDS ORDERED: BENZ100C PO (22:32)
[2018-06-18] MEDS ORDERED: CHOL500021 PO (22:32)
[2018-06-18] MEDS ORDERED: FLUT1BLS3 IH (22:32)
[2018-06-18] MEDS ORDERED: ALPR0.254 PO (22:32)
[2018-06-18] MEDS ORDERED: LISI2.5T PO (22:32)
[2018-06-18] MEDS ORDERED: FLUO15CR2 TP (22:32)
--- NOTE | 2018-06-19 00:09 | PN ---
DATE: 06/18/2018 SUBJECTIVE: The patient is resting, slightly propped up in bed, in no apparent distress. He was successfully extubated yesterday. Upon questioning him, he denied any complaint, except some sore throat and hoarseness of voice. He also has some swelling of his upper extremities. Otherwise, he denied any other complaint and had a good night sleep. He is maintaining his oxygen saturation at 99% on only 2 liters of oxygen by nasal cannula. He is also hungry and we did consult the Speech Therapy for swallowing evaluation and hopefully, get transferred him to floor. PHYSICAL EXAMINATION: GENERAL: When I examined him, he looked well and was clearly in no apparent respiratory distress. Slightly pale, but not jaundiced or cyanosed from thyromegaly. No jugular venous distention. No lower limb edema. VITAL SIGNS: His heart rate was 92, blood pressure was 153/74, temperature was 97.2, respiratory rate was 17 and oxygen saturation was 98% on 2 liters of oxygen by nasal cannula. The rest of the clinical exam was stable, has not really changed. His intake over the last 24 hours was 4100, output was 3990. LABORATORY DATA: His most recent lab work showed a white cell count of 11,900, hemoglobin 11, hematocrit 37, MCV 96 and platelet count of 221,000. As of yesterday, his serum sodium was 137, potassium 4.7, chloride 96, bicarbonate 40, anion gap of 1, BUN 32, creatinine 0.5, estimated GFR was 170 mL per minute, his glucose was 195 and calcium was 8.7. Magnesium was 2.2. ASSESSMENT: 1. Jbvjn-[id number] hypoxic hypercapnic respiratory failure, improved. The patient was successfully extubated. He is now maintaining his oxygen saturation at 99% on 2 liters of oxygen by nasal cannula. 2. Chronic obstructive pulmonary disease exacerbation. 3. Hypertension. 4. Chronic anemia that is normochromic and normocytic. 5. History of duodenal ulcer with hemorrhage. 6. Paroxysmal atrial fibrillation. 7. Psoriasis. 8. Mild hyperkalemia that has resolved. PLAN: My plan is to cut down his steroids to 40 mg q. 12 hourly. Eventually, we are going to switch him to oral and taper it down completely. Continue with IV antibiotic. Await the result of the swallowing evaluation to start feeding him. Obviously start the process of physical and occupational therapy. MILES MOJICA MD DR: BELINDA/елена JOB#: [id number] / [id number]
[2018-06-19 00:20] VITALS: BP 137/65
[2018-06-19] MEDS: IV NORMAL SALINE 1000ML BAG 1,000 ML IV SCH ×2 (02:30→15:59)
[2018-06-19 04:20] VITALS: BP 156/64
[2018-06-19 05:45] LABS: CALCIUM 8.5 mg/dL (8.5-10.1); CREATININE 0.6 mg/dL (0.7-1.3); GFR 137.9; POTASSIUM 4.4 mmol/L (3.5-5.1)
[2018-06-19] MEDS: methylPREDNISolone SOD SUCC PF 40 MG/ML VIAL. IV SCH (06:32)
[2018-06-19] MEDS: MEROPENEM 1 GM in IV NORMAL SALINE 100ML 100 ML IV SCH ×2 (06:33→13:58)
[2018-06-19 07:48] VITALS: BP 163/79
[2018-06-19] MEDS: INSULIN LISPRO 300 UNITS/3 ML INSULN.PEN. SQ SCH ×3 (08:00→17:00)
[2018-06-19] MEDS: TRIAMCINOLONE ACETONIDE 0.1% TOPICAL OINTMENT 15GM TUBE. TP SCH ×2 (09:00→15:58)
[2018-06-19] MEDS: FAMOTIDINE 20 MG/2 ML VIAL IVP SCH ×2 (11:16→21:36)
[2018-06-19 12:00] VITALS: BP 152/71
--- NOTE | 2018-06-19 12:33 | NUR ---
NIKITA following pt. Chart reviewed. PT/OT recommends SNU. Spoke with pt in room regarding PT/OT recommendation, SNU options and insurance coverage. Pt chose [facility]. SW phoned and faxed referral to [facility]. Pt acceptance and admission pending. Discussed with RN. Will continue to follow.
[2018-06-19] MEDS ORDERED: MORPHINE SULFATE 4 MG/ML VIAL. IV PRN (13:15)
[2018-06-19] MEDS ORDERED: MORPHINE SULFATE 2 MG/ML VIAL. IV PRN (13:15)
--- NOTE | 2018-06-19 13:52 | NUR ---
Spoke with Dr. Cornejo at 1315, clarified frequency of morphine. Physician was also updated of patient's rhythm on the monitor (PVC's in bigeminy); received order to check for magnesium level. He was liokewise updated of patient's swallow evaluation.
--- NOTE | 2018-06-19 13:58 | PDOC ---
PULMONARY PROGRESS NOTES Subjective EXTUBATED 06/17 NOT MORE SOA Vitals Vital Signs Date Time Temp Pulse Resp B/P (MAP) Pulse Ox O2 Delivery O2 Flow Rate FiO2 06/19/18 12:00 98.1 100 18 152/71 (98) 96 Nasal Cannula 3.0 98.1 ROS: No Nausea, No Chest Pain, No Abdominal Pain, No Increase Cough General: Alert Lungs: Clear Cardiovascular: S1, S2 Abdomen: Soft Neuro Exam: Alert Extremities: Other (EDEMA) Skin: Warm Labs Laboratory Tests Test 06/19/18 05:00 Sodium Level 142 mmol/L (136-145) Potassium Level 4.4 mmol/L (3.5-5.1) Chloride Level 103 mmol/L (98-107) Carbon Dioxide Level 38 mmol/L (21-32) Anion Gap 1 (6-14) Blood Urea Nitrogen 25 mg/dL (8-26) Creatinine 0.6 mg/dL (0.7-1.3) Estimated GFR (Cockcroft-Gault) 137.9 Glucose Level 94 mg/dL (70-99) Calcium Level 8.5 mg/dL (8.5-10.1) Magnesium Level 2.3 mg/dL (1.8-2.4) Laboratory Tests Test 06/19/18 05:00 Sodium Level 142 mmol/L (136-145) Potassium Level 4.4 mmol/L (3.5-5.1) Chloride Level 103 mmol/L (98-107) Carbon Dioxide Level 38 mmol/L (21-32) Anion Gap 1 (6-14) Blood Urea Nitrogen 25 mg/dL (8-26) Creatinine 0.6 mg/dL (0.7-1.3) Estimated GFR (Cockcroft-Gault) 137.9 Glucose Level 94 mg/dL (70-99) Calcium Level 8.5 mg/dL (8.5-10.1) Magnesium Level 2.3 mg/dL (1.8-2.4) Medications Active Scripts Medications Dose Route/Sig Max Daily Dose Days Date Category Dose Instructions Percocet 5-325 Mg Tablet (Oxycodone/Acetaminophen) 1 Each Tablet 1 Tab PO PRN Q4-6HRS PRN 06/11/18 Reported Procrit (Epoetin Jeronimo) 10,000 Unit/1 Ml Vial 10,000 Unit IJ 3X/WEEK 06/11/18 Reported Triamcinolone Acetonide 0.1% Oint (Triamcinolone Acetonide) 15 Gm Oint...g. 1 Mayra TP BID 06/11/18 Reported MIX WITH EUCERIN DIRECTED BY PHYSICIAN Bisoprolol Fumarate 5 Mg Tablet 5 Mg PO DAILY 06/11/18 Reported Zofran (Ondansetron Hcl) 4 Mg Tablet 1 Tab PO Q6HRS 06/11/18 Reported Acidophilus Capsule (L. Acidophilus/Pectin, [place]) 1 Each Capsule 1 Each PO DAILY 06/11/18 Reported Proair Hfa (Albuterol Sulfate) 8.5 Gm Hfa.aer.ad 1 Puff INH PRN Q6HRS PRN 06/11/18 Reported Protonix (Pantoprazole Sodium) 20 Mg Tablet.dr 40 Mg PO DAILY 06/11/18 Reported Impression . IMPRESSION: 1. Acute on chronic hypoxemic hypercapnic respiratory failure. 2. Acute exacerbation of chronic obstructive pulmonary disease. 3. Tobacco dependence, in remission. 4. Hypertension. 5. Chronic anemia. 6. PNEUMONIA POSSIBLE GRAM NEG 7. ANXIETY Plan . EXTUBATED 06/17 IMPROVING STARTING DYSPHAGIA DIET DC IV ABX, SPUTUM CULTURES NEG CHANGE TO PO STEROIDS UP TO CHAIR PT OT MAY NEED REHAB APPARENTLY PT HAS ?BIPAP AT HOME DVT GLENROY CERON MD Jun 19, 2018 13:58
[2018-06-19] MEDS ORDERED: ENOXAPARIN 40 MG/0.4 ML SYRINGE. SQ SCH (14:00)
[2018-06-19] MEDS: ATENOLOL 50 MG TABLET. PO SCH (14:23)
[2018-06-19] MEDS: LACTOBACILLUS RHAMNOSUS GG 1 CAPSULE. PO SCH ×2 (14:23→21:36)
[2018-06-19] MEDS: ENOXAPARIN 40 MG/0.4 ML SYRINGE. SQ SCH (14:26)
[2018-06-19 16:00] VITALS: BP 143/72
[2018-06-19 20:24] VITALS: BP 134/68
[2018-06-19] MEDS: DOXYCYCLINE HYCLATE 100 MG TABLET PO SCH (21:36)
--- NOTE | 2018-06-19 22:41 | PN ---
DATE: 06/19/2018 SUBJECTIVE: The patient is resting, slightly propped up in bed, in no apparent distress. Awake, alert. He did complain of pain in his lower extremities after the shower and his legs are swollen and did receive some morphine. He apparently has failed his video swallowing evaluation yesterday and he had plans to repeat it again today. PHYSICAL EXAMINATION: GENERAL: When I examined him this morning, he looked well and was clearly in no apparent respiratory distress. He is pale. No jaundice, cyanosis, or thyromegaly. No jugular venous distension. No lower limb edema. VITAL SIGNS: His heart rate was 97, blood pressure was 163/79, temperature was 98.3, respiratory rate was 18, and oxygen saturation was 92% on 3 liters of oxygen by nasal cannula. HEAD, EYES, EARS, NOSE AND THROAT: Showed normocephalic, atraumatic. NECK: Supple. HEART: Showed normal first and second heart sounds with no gallop, rub or murmur. CHEST: Clear to auscultation. No crepitation or rhonchi. ABDOMEN: Distended, soft, nontender. No guarding or rigidity. No organomegaly. All hernial orifices intact. Bowel sounds normal. NEUROLOGIC: He was awake, alert, responding appropriately. All cranial nerves intact. He moves extremities without difficulty. His intake was 1800, output was 2500. LABORATORY DATA: As of this morning showed a serum sodium 142, potassium 4.4, chloride 103, bicarbonate 38, anion gap of 1, BUN 25, creatinine 0.6, estimated GFR was 138 mL per minute. His glucose was 94, calcium was 8.5. ASSESSMENT: 1. Urpqn-gr-wdeycui hypoxic hypercapnic respiratory failure. The patient was successfully extubated. He is now on 3 liters of oxygen by nasal cannula, maintaining his oxygen saturation at 92%. 2. Chronic obstructive pulmonary disease exacerbation. 3. Hypertension. 4. Chronic anemia that is normochromic, normocytic. 5. History of duodenal ulcer with hemorrhage. 6. Paroxysmal atrial fibrillation. 7. Psoriasis. 8. Mild hyperkalemia that has resolved. PLAN: To await evaluation by the speech therapist that can start him on his oral medication, switch him also to oral steroids. MILES MOJICA MD DR: BELINDA/елена JOB#: [id number] / [id number]
[2018-06-19] MEDS: ONDANSETRON ODT 4 MG TAB.RAPDIS. PO PRN (23:25)
[2018-06-20] VITALS (12 sets, daily range): BP systolic 86–125; BP diastolic 53–67
[2018-06-20] MEDS: IV NORMAL SALINE 1000ML BAG 1,000 ML IV SCH ×2 (06:34→17:13)
[2018-06-20] MEDS: ALBUTEROL SULFATE 2.5 MG/3 ML NEBU. INH PRN ×3 (07:38→16:46)
[2018-06-20] MEDS: INSULIN LISPRO 300 UNITS/3 ML INSULN.PEN. SQ SCH ×3 (07:54→17:00)
[2018-06-20] MEDS: LACTOBACILLUS RHAMNOSUS GG 1 CAPSULE. PO SCH ×2 (08:18→21:14)
[2018-06-20] MEDS: DOXYCYCLINE HYCLATE 100 MG TABLET PO SCH ×2 (08:18→21:14)
[2018-06-20] MEDS: ATENOLOL 50 MG TABLET. PO SCH (08:18)
[2018-06-20] MEDS: FAMOTIDINE 20 MG/2 ML VIAL IVP SCH ×2 (08:19→21:14)
[2018-06-20] MEDS: predniSONE 10 MG TABLET PO SCH (08:19)
[2018-06-20] MEDS: TRIAMCINOLONE ACETONIDE 0.1% TOPICAL OINTMENT 15GM TUBE. TP SCH ×2 (08:19→21:00)
--- NOTE | 2018-06-20 09:40 | PDOC ---
PULMONARY PROGRESS NOTES Subjective EXTUBATED 06/17 MORE SOA Vitals Vital Signs Date Time Temp Pulse Resp B/P (MAP) Pulse Ox O2 Delivery O2 Flow Rate FiO2 06/20/18 08:18 109 114/55 06/20/18 07:31 95 Nasal Cannula 4.0 06/20/18 07:00 98.1 18 98.1 ROS: No Nausea, No Chest Pain, No Abdominal Pain, No Increase Cough General: Alert Lungs: Clear Cardiovascular: S1, S2 Abdomen: Soft Neuro Exam: Alert Extremities: Other (EDEMA) Skin: Warm Labs Laboratory Tests Test 06/19/18 05:00 06/19/18 17:53 06/19/18 20:17 06/19/18 22:57 Sodium Level 142 mmol/L (136-145) Potassium Level 4.4 mmol/L (3.5-5.1) Chloride Level 103 mmol/L (98-107) Carbon Dioxide Level 38 mmol/L (21-32) Anion Gap 1 (6-14) Blood Urea Nitrogen 25 mg/dL (8-26) Creatinine 0.6 mg/dL (0.7-1.3) Estimated GFR (Cockcroft-Gault) 137.9 Glucose Level 94 mg/dL (70-99) Calcium Level 8.5 mg/dL (8.5-10.1) Magnesium Level 2.3 mg/dL (1.8-2.4) Glucose (Fingerstick) 114 mg/dL (70-99) 92 mg/dL (70-99) 92 mg/dL (70-99) Test 06/20/18 07:21 Glucose (Fingerstick) 100 mg/dL (70-99) Laboratory Tests Test 06/19/18 17:53 06/19/18 20:17 06/19/18 22:57 06/20/18 07:21 Glucose (Fingerstick) 114 mg/dL (70-99) 92 mg/dL (70-99) 92 mg/dL (70-99) 100 mg/dL (70-99) Medications Active Scripts Medications Dose Route/Sig Max Daily Dose Days Date Category Dose Instructions Percocet 5-325 Mg Tablet (Oxycodone/Acetaminophen) 1 Each Tablet 1 Tab PO PRN Q4-6HRS PRN 06/11/18 Reported Procrit (Epoetin Jeronimo) 10,000 Unit/1 Ml Vial 10,000 Unit IJ 3X/WEEK 06/11/18 Reported Triamcinolone Acetonide 0.1% Oint (Triamcinolone Acetonide) 15 Gm Oint...g. 1 Mayra TP BID 06/11/18 Reported MIX WITH EUCERIN DIRECTED BY PHYSICIAN Bisoprolol Fumarate 5 Mg Tablet 5 Mg PO DAILY 06/11/18 Reported Zofran (Ondansetron Hcl) 4 Mg Tablet 1 Tab PO Q6HRS 06/11/18 Reported Acidophilus Capsule (L. Acidophilus/Pectin, [place]) 1 Each Capsule 1 Each PO DAILY 06/11/18 Reported Proair Hfa (Albuterol Sulfate) 8.5 Gm Hfa.aer.ad 1 Puff INH PRN Q6HRS PRN 06/11/18 Reported Protonix (Pantoprazole Sodium) 20 Mg Tablet.dr 40 Mg PO DAILY 06/11/18 Reported Impression . IMPRESSION: 1. Acute on chronic hypoxemic hypercapnic respiratory failure. 2. Acute exacerbation of chronic obstructive pulmonary disease. 3. Tobacco dependence, in remission. 4. Hypertension. 5. Chronic anemia. 6. PNEUMONIA POSSIBLE GRAM NEG 7. ANXIETY Plan . EXTUBATED 06/17 C/O SOA, LOW SATS, WILL GET CXR STARTING DYSPHAGIA DIET OFF IV ABX, SPUTUM CULTURES NEG PO STEROIDS UP TO CHAIR PT OT MAY NEED REHAB APPARENTLY PT HAS ?BIPAP AT HOME DVT PROPHY ADDEND: TRANSFER TO ICU FRO A/C HYPERCAPNIC RF/ ON BIPAP WILL F/U ABG. D/W GLENROY ALVARENGA MD Jun 20, 2018 09:40
--- NOTE | 2018-06-20 09:51 | NUR ---
SW following pt. Spoke with [facility] and clinicals are still under review. NIKITA informed [facility] will need to know if they accept/deny pt today to continue with dc planning. Will continue to follow.
--- NOTE | 2018-06-20 10:46 | RAD ---
Portable chest, 06/20/2018: HISTORY: Dyspnea Comparison is made to a study from 06/17/2018. The ET tube and NG tube have been removed. The heart is within normal limits in size. Emphysematous changes are evident in the upper lobes. No pulmonary consolidation is seen. No pleural fluid or pneumothorax is evident. IMPRESSION: 1. Emphysema. 2. No acute abnormality is detected. Electronically signed by: Desmond Lind MD (06/20/2018 10:43 AM) [facility]
[2018-06-20 13:15] LABS: BASE EXCESS ABG 11 mmol/L (-3-3); HCO3 ABG 46 mmol/L (21-28); PO2 ABG 75 mmHg (65-108); SAT O2 ABG 93 % (92-99)
[2018-06-20 13:17] LABS: FIO2 ABG 32; PCO2 ABG 135 mmHg (35-46)
--- NOTE | 2018-06-20 13:32 | NUR ---
SW following pt. [facility] denied to take pt stating they are not able to meet his needs. Spoke with pt this morning about other options and pt agreeable with [facility]. Referral faxed to [facility] and pt is accepted pending insurance approval. Pt's , Adela, phone; [phone] aware of plan and agreeable. Le reported pt will need to bring Bi-pap from home. Pt currently is about to transfer back to ICU.
--- NOTE | 2018-06-20 14:31 | NUR ---
Patient increasingly lethargic and confused throughout day. Saturation dropped to 80s with activity from PT, with assistance from RT and breathing treatments patient returned sats to >92. Patient's state has remained drowsy and confused. This RN expressed these concerns to Dr. Jones who ordered ABG blood draw and bipap settings. ABG from Dr. Jones ordered with critical results returning. Orders from Dr. Jones received to transfer to ICU. Patient placed on bipap and transferred to room 108. Report given to Pili VASQUEZ.
[2018-06-20 15:52] LABS: BASE EXCESS ABG 8 mmol/L (-3-3); HCO3 ABG 32 mmol/L (21-28); PCO2 ABG 44 mmHg (35-46); PO2 ABG 70 mmHg (65-108); SAT O2 ABG 96 % (92-99)
[2018-06-20 15:56] LABS: FIO2 ABG 35
--- NOTE | 2018-06-20 16:43 | NUR ---
Pt transferred to ICU and will need new orders to resume therapy services. Please write PT/Ot eval and treat orders once pt medically stable. Addendum: 06/20/18 at 1643 by INES ZAMAN PT Amended: Links added.
[2018-06-20] MEDS: ENOXAPARIN 40 MG/0.4 ML SYRINGE. SQ SCH (16:54)
[2018-06-21] VITALS (16 sets, daily range): BP systolic 101–150; BP diastolic 55–103
--- NOTE | 2018-06-21 01:10 | PN ---
DATE: 06/20/2018 SUBJECTIVE: The patient does not feel good. He said that he has not had a good night sleep and apparently has had more shortness of breath. The nursing staff stated he seemed to be more lethargic. OBJECTIVE: GENERAL: When I examined him, he was somewhat pale, but not jaundiced or cyanosed from thyromegaly. No jugular venous distention. No lower limb edema. VITAL SIGNS: His heart rate was 93, blood pressure was 119/66, temperature was 98, respiratory rate was 18 and oxygen saturation was 90. In fact, he was only 89 on 4 liters oxygen by nasal cannula when I saw him this afternoon. HEENT: Examination of the head, eyes, ears, nose and throat showed normocephalic, atraumatic. NECK: Supple. HEART: Showed normal first and second heart sounds. No gallop, rub or murmur. CHEST: Shows central trachea, equally reduced expansion and reduced air entry. I could not really appreciate any crepitation or rhonchi. ABDOMEN: Slightly distended, soft and nontender. NEUROLOGIC: He is awake, but somewhat lethargic. He was definitely more awake yesterday. All his cranial nerves are intact. He moves all extremities without difficulty, though he is mostly bed bound. His intake over the last 24 hours was incompletely recorded, output was 1800. LABORATORY DATA: His lab work yesterday showed a serum sodium 142, potassium 4.4, chloride 103, bicarbonate 38, anion gap of 1, BUN 25, creatinine 0.6, estimated GFR was 138 mL per minute, glucose 94 and calcium was 8.5. His most recent white cell count was 11,900; hemoglobin 11, hematocrit 37, MCV 96 and platelet count of 221,000. ASSESSMENT: 1. Wywcv-fj-hzcirnj hypoxic hypercapnic respiratory failure. The patient was successfully extubated. He is now on 4 liters of oxygen by nasal cannula. However, his oxygen saturation is only 89%. 2. Chronic obstructive pulmonary disease exacerbation. 3. Hypertension. 4. Chronic anemia. It is normochromic, normocytic. 5. History of duodenal ulcer with hemorrhage. 6. Paroxysmal atrial fibrillation. 7. Psoriasis. 8. Mild hyperkalemia, it has resolved. 9. The patient does seem to be more lethargic today. He apparently did well on his video swallowing evaluation and he is now on a dysphagia 2 with honey-thick liquids. Apparently, the patient continued with overt signs and symptoms of aspiration with thin liquid. PLAN: Plan is to await the blood gases ordered and he might require to be on BiPAP machine. Meanwhile, I will repeat his lab work tomorrow. MILES MOJICA MD DR: BELINDA/елена JOB#: [id number] / [id number]
[2018-06-21] MEDS: IV NORMAL SALINE 1000ML BAG 1,000 ML IV SCH ×2 (04:04→21:01)
[2018-06-21 05:41] LABS: BASO % 0 % (0-3); EOS # 0.1 x10^3/uL (0.0-0.7); EOS % 2 % (0-3); HEMATOCRIT 31.8 % (39.0-53.0); HEMOGLOBIN 9.9 g/dL (13.0-17.5); LYMPH # 0.5 x10^3/uL (1.0-4.8); LYMPH % 7 % (24-48); MEAN CORPUSCULAR HEMOGLOBIN 30 pg (25-35); MEAN CORPUSCULAR HGB CONC 31 g/dL (31-37); MEAN CORPUSCULAR VOLUME 97 fL (79-100); MONO # 0.9 x10^3/uL (0.0-1.1); MONO % 13 % (0-9); NEUT # 5.6 x10^3uL (1.8-7.7); NEUT % 78 % (31-73); PLATELET COUNT 230 x10^3/uL (140-400); RED BLOOD COUNT 3.27 x10^6/uL (4.30-5.70); RED CELL DISTRIBUTION WIDTH 14.2 % (11.5-14.5); WHITE BLOOD COUNT 7.1 x10^3/uL (4.0-11.0)
[2018-06-21 06:03] LABS: ALBUMIN 2.2 g/dL (3.4-5.0); ALBUMIN/GLOBULIN RATIO 0.8 (1.0-1.7); CREATININE 0.6 mg/dL (0.7-1.3); GFR 137.9; POTASSIUM 4.1 mmol/L (3.5-5.1); TOTAL BILIRUBIN 0.3 mg/dL (0.2-1.0); TOTAL PROTEIN 4.9 g/dL (6.4-8.2)
[2018-06-21] MEDS: INSULIN LISPRO 300 UNITS/3 ML INSULN.PEN. SQ SCH ×3 (07:46→17:00)
[2018-06-21] MEDS: FAMOTIDINE 20 MG/2 ML VIAL IVP SCH ×2 (08:58→21:01)
[2018-06-21] MEDS: predniSONE 10 MG TABLET PO SCH (08:58)
[2018-06-21] MEDS: LACTOBACILLUS RHAMNOSUS GG 1 CAPSULE. PO SCH ×4 (08:58→21:01)
[2018-06-21] MEDS: DOXYCYCLINE HYCLATE 100 MG TABLET PO SCH ×2 (08:58→21:01)
[2018-06-21] MEDS: ATENOLOL 50 MG TABLET. PO SCH (08:59)
[2018-06-21] MEDS: TRIAMCINOLONE ACETONIDE 0.1% TOPICAL OINTMENT 15GM TUBE. TP SCH ×2 (09:56→21:00)
--- NOTE | 2018-06-21 12:49 | NUR ---
See orders. Patient verb. understanding POC to move to medical unit room 526. Patient up in chair with PT with much assist times two per physical therapy, patient very weak legs with transfer. Patient comfortable now sitting in chair. Attempted to call report, RN to call this RN back. Patient continues to wear oxygen at 3 liters per mouth after Bipap removed with breakfast this morning. O2 sat. 92% with 3 liters per mouth. Patient refusing meal at this time, no appetite. Slow to take medications crushed and in apple sauce r/t taste, has yet to take lactobacillus. Continue cares and monitor.
--- NOTE | 2018-06-21 13:18 | PDOC ---
PULMONARY PROGRESS NOTES Subjective used BIPAP last night fully awake Vitals Vital Signs Date Time Temp Pulse Resp B/P (MAP) Pulse Ox O2 Delivery O2 Flow Rate FiO2 06/21/18 12:20 82 133/69 (90) 06/21/18 12:00 97.4 22 93 Nasal Cannula 3.0 97.4 ROS: No Nausea, No Chest Pain, No Abdominal Pain, No Increase Cough General: Alert, No acute distress Lungs: Clear Cardiovascular: S1, S2 Abdomen: Soft Neuro Exam: Alert Extremities: Other (EDEMA) Skin: Warm Labs Laboratory Tests Test 06/19/18 17:53 06/19/18 20:17 06/19/18 22:57 06/20/18 07:21 Glucose (Fingerstick) 114 mg/dL (70-99) 92 mg/dL (70-99) 92 mg/dL (70-99) 100 mg/dL (70-99) Test 06/20/18 11:57 06/20/18 12:55 06/20/18 15:45 06/20/18 17:00 Glucose (Fingerstick) 135 mg/dL (70-99) 99 mg/dL (70-99) O2 Saturation 93 % (92-99) 96 % (92-99) Arterial Blood pH 7.15 (7.35-7.45) 7.48 (7.35-7.45) Arterial Blood pCO2 at Patient Temp 135 mmHg (35-46) 44 mmHg (35-46) Arterial Blood pO2 at Patient Temp 75 mmHg (65-108) 70 mmHg (65-108) Arterial Blood HCO3 46 mmol/L (21-28) 32 mmol/L (21-28) Arterial Blood Base Excess 11 mmol/L (-3-3) 8 mmol/L (-3-3) FiO2 32 35 Test 06/20/18 21:19 06/21/18 04:40 06/21/18 07:37 06/21/18 11:19 Glucose (Fingerstick) 118 mg/dL (70-99) 88 mg/dL (70-99) 108 mg/dL (70-99) White Blood Count 7.1 x10^3/uL (4.0-11.0) Red Blood Count 3.27 x10^6/uL (4.30-5.70) Hemoglobin 9.9 g/dL (13.0-17.5) Hematocrit 31.8 % (39.0-53.0) Mean Corpuscular Volume 97 fL (79-100) Mean Corpuscular Hemoglobin 30 pg (25-35) Mean Corpuscular Hemoglobin Concent 31 g/dL (31-37) Red Cell Distribution Width 14.2 % (11.5-14.5) Platelet Count 230 x10^3/uL (140-400) Neutrophils (%) (Auto) 78 % (31-73) Lymphocytes (%) (Auto) 7 % (24-48) Monocytes (%) (Auto) 13 % (0-9) Eosinophils (%) (Auto) 2 % (0-3) Basophils (%) (Auto) 0 % (0-3) Neutrophils # (Auto) 5.6 x10^3uL (1.8-7.7) Lymphocytes # (Auto) 0.5 x10^3/uL (1.0-4.8) Monocytes # (Auto) 0.9 x10^3/uL (0.0-1.1) Eosinophils # (Auto) 0.1 x10^3/uL (0.0-0.7) Basophils # (Auto) 0.0 x10^3/uL (0.0-0.2) Sodium Level 148 mmol/L (136-145) Potassium Level 4.1 mmol/L (3.5-5.1) Chloride Level 107 mmol/L (98-107) Carbon Dioxide Level 40 mmol/L (21-32) Anion Gap 1 (6-14) Blood Urea Nitrogen 33 mg/dL (8-26) Creatinine 0.6 mg/dL (0.7-1.3) Estimated GFR (Cockcroft-Gault) 137.9 BUN/Creatinine Ratio 55 (6-20) Glucose Level 91 mg/dL (70-99) Calcium Level 8.0 mg/dL (8.5-10.1) Total Bilirubin 0.3 mg/dL (0.2-1.0) Aspartate Amino Transf (AST/SGOT) 19 U/L (15-37) Alanine Aminotransferase (ALT/SGPT) 71 U/L (16-63) Alkaline Phosphatase 40 U/L (46-116) Total Protein 4.9 g/dL (6.4-8.2) Albumin 2.2 g/dL (3.4-5.0) Albumin/Globulin Ratio 0.8 (1.0-1.7) Laboratory Tests Test 06/20/18 15:45 06/20/18 17:00 06/20/18 21:19 06/21/18 04:40 O2 Saturation 96 % (92-99) Arterial Blood pH 7.48 (7.35-7.45) Arterial Blood pCO2 at Patient Temp 44 mmHg (35-46) Arterial Blood pO2 at Patient Temp 70 mmHg (65-108) Arterial Blood HCO3 32 mmol/L (21-28) Arterial Blood Base Excess 8 mmol/L (-3-3) FiO2 35 Glucose (Fingerstick) 99 mg/dL (70-99) 118 mg/dL (70-99) White Blood Count 7.1 x10^3/uL (4.0-11.0) Red Blood Count 3.27 x10^6/uL (4.30-5.70) Hemoglobin 9.9 g/dL (13.0-17.5) Hematocrit 31.8 % (39.0-53.0) Mean Corpuscular Volume 97 fL (79-100) Mean Corpuscular Hemoglobin 30 pg (25-35) Mean Corpuscular Hemoglobin Concent 31 g/dL (31-37) Red Cell Distribution Width 14.2 % (11.5-14.5) Platelet Count 230 x10^3/uL (140-400) Neutrophils (%) (Auto) 78 % (31-73) Lymphocytes (%) (Auto) 7 % (24-48) Monocytes (%) (Auto) 13 % (0-9) Eosinophils (%) (Auto) 2 % (0-3) Basophils (%) (Auto) 0 % (0-3) Neutrophils # (Auto) 5.6 x10^3uL (1.8-7.7) Lymphocytes # (Auto) 0.5 x10^3/uL (1.0-4.8) Monocytes # (Auto) 0.9 x10^3/uL (0.0-1.1) Eosinophils # (Auto) 0.1 x10^3/uL (0.0-0.7) Basophils # (Auto) 0.0 x10^3/uL (0.0-0.2) Sodium Level 148 mmol/L (136-145) Potassium Level 4.1 mmol/L (3.5-5.1) Chloride Level 107 mmol/L (98-107) Carbon Dioxide Level 40 mmol/L (21-32) Anion Gap 1 (6-14) Blood Urea Nitrogen 33 mg/dL (8-26) Creatinine 0.6 mg/dL (0.7-1.3) Estimated GFR (Cockcroft-Gault) 137.9 BUN/Creatinine Ratio 55 (6-20) Glucose Level 91 mg/dL (70-99) Calcium Level 8.0 mg/dL (8.5-10.1) Total Bilirubin 0.3 mg/dL (0.2-1.0) Aspartate Amino Transf (AST/SGOT) 19 U/L (15-37) Alanine Aminotransferase (ALT/SGPT) 71 U/L (16-63) Alkaline Phosphatase 40 U/L (46-116) Total Protein 4.9 g/dL (6.4-8.2) Albumin 2.2 g/dL (3.4-5.0) Albumin/Globulin Ratio 0.8 (1.0-1.7) Test 06/21/18 07:37 06/21/18 11:19 Glucose (Fingerstick) 88 mg/dL (70-99) 108 mg/dL (70-99) Medications Active Scripts Medications Dose Route/Sig Max Daily Dose Days Date Category Dose Instructions Percocet 5-325 Mg Tablet (Oxycodone/Acetaminophen) 1 Each Tablet 1 Tab PO PRN Q4-6HRS PRN 06/11/18 Reported Procrit (Epoetin Jeronmio) 10,000 Unit/1 Ml Vial 10,000 Unit IJ 3X/WEEK 06/11/18 Reported Triamcinolone Acetonide 0.1% Oint (Triamcinolone Acetonide) 15 Gm Oint...g. 1 Mayra TP BID 06/11/18 Reported MIX WITH EUCERIN DIRECTED BY PHYSICIAN Bisoprolol Fumarate 5 Mg Tablet 5 Mg PO DAILY 06/11/18 Reported Zofran (Ondansetron Hcl) 4 Mg Tablet 1 Tab PO Q6HRS 06/11/18 Reported Acidophilus Capsule (L. Acidophilus/Pectin, [place]) 1 Each Capsule 1 Each PO DAILY 06/11/18 Reported Proair Hfa (Albuterol Sulfate) 8.5 Gm Hfa.aer.ad 1 Puff INH PRN Q6HRS PRN 06/11/18 Reported Protonix (Pantoprazole Sodium) 20 Mg Tablet.dr 40 Mg PO DAILY 06/11/18 Reported Impression . 1. Acute on chronic hypoxemic hypercapnic respiratory failure. Much improved with BIPAP 2. Acute exacerbation of chronic obstructive pulmonary disease. 3. Tobacco dependence, in remission. 4. Hypertension. 5. Chronic anemia. 6. PNEUMONIA POSSIBLE GRAM NEG 7. ANXIETY Plan . EXTUBATED 06/17/ NEEDED BIPAP / FOR WORSENING HYPERCAPNIA, NOW MUCH BETTER/ OFF BIPAP CXR WITH NO SIG CHANGE USE BIPAP QHS/ PT DOES HAVE CPAP AT HOME ORAL DIET OFF IV ABX, SPUTUM CULTURES NEG PO STEROIDS UP TO CHAIR TRANSFER TO FLOOR DVT GLENROY CERON MD Jun 21, 2018 13:18
[2018-06-21] MEDS: ENOXAPARIN 40 MG/0.4 ML SYRINGE. SQ SCH (14:38)
--- NOTE | 2018-06-21 14:42 | NUR ---
Patient transfer to [address] [place] [address] room 526 per bed accompanied by with all belongings, bipap, chart and medications per transport with oxygen at 3 liters per mouth. Report was called to Miri VASQUEZ, see nursing communication.
--- NOTE | 2018-06-22 00:37 | PN ---
DATE: 06/21/2018 SUBJECTIVE: The patient is resting, slightly propped up in bed, in no apparent distress. He is definitely more awake, alert. Apparently he went into severe hypercapnic respiratory failure yesterday. His pH was 7.15, pCO2 135. He was transferred to the ICU and was on BiPAP machine throughout the night. When I saw him today, he is definitely more awake, alert, responding appropriately. He is still awaiting for the Speech Therapy. They would plan to advance his liquid to thin liquid. PHYSICAL EXAMINATION: GENERAL: When I examined him, he was pale, but no jaundice, cyanosis or thyromegaly. No jugular venous distension. No lower limb edema. VITAL SIGNS: His heart rate was 84, blood pressure 126/63, temperature was 98, respiratory rate was 20, and oxygen saturation was 95% on 3 liters of oxygen. HEAD, EYES, EARS, NOSE AND THROAT: Showed normocephalic, atraumatic. NECK: Supple. HEART: Showed normal first and second sounds. No gallop, rub or murmur. CHEST: Clear to auscultation. No crepitation or rhonchi. ABDOMEN: Distended, soft, nontender. No guarding or rigidity. No organomegaly. All hernial orifices intact. Bowel sounds normal. NEUROLOGIC: He is definitely more awake, alert, responding appropriately. All cranial nerves intact. He moves extremities without difficulty, although he is mostly bed bound. His intake was 340, output was 1100. LABORATORY DATA: As of this morning showed a pH of 7.48, pCO2 of 44, pO2 of 70, bicarbonate 32, and oxygen saturation was 96% on FiO2 35%. His white cell count 7000, hemoglobin 10, hematocrit 32, MCV 97, and platelet count 230,000. His chemistry showed a serum sodium 148, potassium 4.1, chloride 107, bicarbonate 40, anion gap of 1, BUN 33, creatinine 0.6, estimated GFR was 137 mL per minute. His glucose was 91, calcium was 8. Total bilirubin, AST, alkaline phosphatase were normal. His total protein was 4.9, albumin was 2.2. ASSESSMENT: 1. [id number] hypoxic hypercapnic respiratory failure. 2. Acute exacerbation of chronic obstructive pulmonary disease. 3. Tobacco dependence. 4. Hypertension. 5. Chronic anemia. 6. Left lower lobe pneumonia. 7. Dysphagia. He is now on mechanically soft diet with thickened liquid . He was transferred yesterday from the floor to the ICU and was started on BiPAP machine. He is doing much better. PLAN: We will put strict order that he should not be given any narcotics as he has been requesting morphine frequently when he was upstairs. MILES MOJICA MD DR: BELINDA/елена JOB#: [id number] / [id number]
[2018-06-22 03:00] VITALS: BP 136/67
[2018-06-22] MEDS: ONDANSETRON ODT 4 MG TAB.RAPDIS. PO PRN ×3 (03:27→14:57)
[2018-06-22 06:03] LABS: CALCIUM 7.9 mg/dL (8.5-10.1); CREATININE 0.6 mg/dL (0.7-1.3); GFR 137.9; POTASSIUM 3.8 mmol/L (3.5-5.1)
[2018-06-22 07:00] VITALS: BP 119/58
[2018-06-22] MEDS: INSULIN LISPRO 300 UNITS/3 ML INSULN.PEN. SQ SCH ×3 (08:00→16:55)
[2018-06-22] MEDS: LACTOBACILLUS RHAMNOSUS GG 1 CAPSULE. PO SCH ×2 (09:00→21:00)
[2018-06-22] MEDS: TRIAMCINOLONE ACETONIDE 0.1% TOPICAL OINTMENT 15GM TUBE. TP SCH ×2 (09:06→21:00)
[2018-06-22] MEDS: FAMOTIDINE 20 MG/2 ML VIAL IVP SCH (09:06)
[2018-06-22] MEDS: predniSONE 10 MG TABLET PO SCH (09:07)
[2018-06-22] MEDS: DOXYCYCLINE HYCLATE 100 MG TABLET PO SCH ×2 (09:07→21:05)
[2018-06-22] MEDS: ATENOLOL 50 MG TABLET. PO SCH (09:07)
--- NOTE | 2018-06-22 09:09 | PDOC ---
PULMONARY PROGRESS NOTES Subjective using BIPAP every night Vitals Vital Signs Date Time Temp Pulse Resp B/P (MAP) Pulse Ox O2 Delivery O2 Flow Rate FiO2 06/22/18 07:00 97.8 83 16 119/58 (78) 93 Nasal Cannula 3.0 97.8 ROS: No Nausea, No Chest Pain, No Abdominal Pain, No Increase Cough General: Alert, No acute distress Lungs: Clear Cardiovascular: S1, S2 Abdomen: Soft Neuro Exam: Alert Extremities: Other (EDEMA) Skin: Warm Labs Laboratory Tests Test 06/20/18 11:57 06/20/18 12:55 06/20/18 15:45 06/20/18 17:00 Glucose (Fingerstick) 135 mg/dL (70-99) 99 mg/dL (70-99) O2 Saturation 93 % (92-99) 96 % (92-99) Arterial Blood pH 7.15 (7.35-7.45) 7.48 (7.35-7.45) Arterial Blood pCO2 at Patient Temp 135 mmHg (35-46) 44 mmHg (35-46) Arterial Blood pO2 at Patient Temp 75 mmHg (65-108) 70 mmHg (65-108) Arterial Blood HCO3 46 mmol/L (21-28) 32 mmol/L (21-28) Arterial Blood Base Excess 11 mmol/L (-3-3) 8 mmol/L (-3-3) FiO2 32 35 Test 06/20/18 21:19 06/21/18 04:40 06/21/18 07:37 06/21/18 11:19 Glucose (Fingerstick) 118 mg/dL (70-99) 88 mg/dL (70-99) 108 mg/dL (70-99) White Blood Count 7.1 x10^3/uL (4.0-11.0) Red Blood Count 3.27 x10^6/uL (4.30-5.70) Hemoglobin 9.9 g/dL (13.0-17.5) Hematocrit 31.8 % (39.0-53.0) Mean Corpuscular Volume 97 fL (79-100) Mean Corpuscular Hemoglobin 30 pg (25-35) Mean Corpuscular Hemoglobin Concent 31 g/dL (31-37) Red Cell Distribution Width 14.2 % (11.5-14.5) Platelet Count 230 x10^3/uL (140-400) Neutrophils (%) (Auto) 78 % (31-73) Lymphocytes (%) (Auto) 7 % (24-48) Monocytes (%) (Auto) 13 % (0-9) Eosinophils (%) (Auto) 2 % (0-3) Basophils (%) (Auto) 0 % (0-3) Neutrophils # (Auto) 5.6 x10^3uL (1.8-7.7) Lymphocytes # (Auto) 0.5 x10^3/uL (1.0-4.8) Monocytes # (Auto) 0.9 x10^3/uL (0.0-1.1) Eosinophils # (Auto) 0.1 x10^3/uL (0.0-0.7) Basophils # (Auto) 0.0 x10^3/uL (0.0-0.2) Sodium Level 148 mmol/L (136-145) Potassium Level 4.1 mmol/L (3.5-5.1) Chloride Level 107 mmol/L (98-107) Carbon Dioxide Level 40 mmol/L (21-32) Anion Gap 1 (6-14) Blood Urea Nitrogen 33 mg/dL (8-26) Creatinine 0.6 mg/dL (0.7-1.3) Estimated GFR (Cockcroft-Gault) 137.9 BUN/Creatinine Ratio 55 (6-20) Glucose Level 91 mg/dL (70-99) Calcium Level 8.0 mg/dL (8.5-10.1) Total Bilirubin 0.3 mg/dL (0.2-1.0) Aspartate Amino Transf (AST/SGOT) 19 U/L (15-37) Alanine Aminotransferase (ALT/SGPT) 71 U/L (16-63) Alkaline Phosphatase 40 U/L (46-116) Total Protein 4.9 g/dL (6.4-8.2) Albumin 2.2 g/dL (3.4-5.0) Albumin/Globulin Ratio 0.8 (1.0-1.7) Test 06/21/18 16:57 06/21/18 20:49 06/22/18 05:10 06/22/18 07:52 Glucose (Fingerstick) 109 mg/dL (70-99) 102 mg/dL (70-99) 73 mg/dL (70-99) Sodium Level 145 mmol/L (136-145) Potassium Level 3.8 mmol/L (3.5-5.1) Chloride Level 105 mmol/L (98-107) Carbon Dioxide Level 39 mmol/L (21-32) Anion Gap 1 (6-14) Blood Urea Nitrogen 23 mg/dL (8-26) Creatinine 0.6 mg/dL (0.7-1.3) Estimated GFR (Cockcroft-Gault) 137.9 Glucose Level 88 mg/dL (70-99) Calcium Level 7.9 mg/dL (8.5-10.1) Laboratory Tests Test 06/21/18 11:19 06/21/18 16:57 06/21/18 20:49 06/22/18 05:10 Glucose (Fingerstick) 108 mg/dL (70-99) 109 mg/dL (70-99) 102 mg/dL (70-99) Sodium Level 145 mmol/L (136-145) Potassium Level 3.8 mmol/L (3.5-5.1) Chloride Level 105 mmol/L (98-107) Carbon Dioxide Level 39 mmol/L (21-32) Anion Gap 1 (6-14) Blood Urea Nitrogen 23 mg/dL (8-26) Creatinine 0.6 mg/dL (0.7-1.3) Estimated GFR (Cockcroft-Gault) 137.9 Glucose Level 88 mg/dL (70-99) Calcium Level 7.9 mg/dL (8.5-10.1) Test 06/22/18 07:52 Glucose (Fingerstick) 73 mg/dL (70-99) Medications Active Scripts Medications Dose Route/Sig Max Daily Dose Days Date Category Dose Instructions Percocet 5-325 Mg Tablet (Oxycodone/Acetaminophen) 1 Each Tablet 1 Tab PO PRN Q4-6HRS PRN 06/11/18 Reported Procrit (Epoetin Jeronimo) 10,000 Unit/1 Ml Vial 10,000 Unit IJ 3X/WEEK 06/11/18 Reported Triamcinolone Acetonide 0.1% Oint (Triamcinolone Acetonide) 15 Gm Oint...g. 1 Mayra TP BID 06/11/18 Reported MIX WITH EUCERIN DIRECTED BY PHYSICIAN Bisoprolol Fumarate 5 Mg Tablet 5 Mg PO DAILY 06/11/18 Reported Zofran (Ondansetron Hcl) 4 Mg Tablet 1 Tab PO Q6HRS 06/11/18 Reported Acidophilus Capsule (L. Acidophilus/Pectin, [place]) 1 Each Capsule 1 Each PO DAILY 06/11/18 Reported Proair Hfa (Albuterol Sulfate) 8.5 Gm Hfa.aer.ad 1 Puff INH PRN Q6HRS PRN 06/11/18 Reported Protonix (Pantoprazole Sodium) 20 Mg Tablet.dr 40 Mg PO DAILY 06/11/18 Reported Impression . 1. Acute on chronic hypoxemic/ hypercapnic respiratory failure. Much improved with BIPAP 2. Acute exacerbation of chronic obstructive pulmonary disease. 3. Tobacco dependence, in remission. 4. Hypertension. 5. Chronic anemia. 6. PNEUMONIA POSSIBLE GRAM NEG 7. ANXIETY Plan . EXTUBATED 06/17/ NEEDED BIPAP 4/3 FOR WORSENING HYPERCAPNIA, NOW MUCH BETTER/ OFF BIPAP CXR WITH NO SIG CHANGE USE BIPAP QHS/ PT DOES HAVE CPAP AT HOME ORAL DIET OFF IV ABX, SPUTUM CULTURES NEG PO STEROIDS UP TO CHAIR DVT PROPHY D/W DR MOJICA INCREASE AMBULATION GLENROY ALVARENGA MD Jun 22, 2018 09:09
--- NOTE | 2018-06-22 10:01 | NUR ---
SW following pt. Spoke with Physician and pt is not ready today. SW requested Le to submit for auth for a possible dc tomorrow. Left a voice mail to pt's regarding bringing Bipap to [facility] upon dc. Will continue to follow.
[2018-06-22] MEDS ORDERED: BARIUM SULFATE 40% (APPLE) 148 GM PWD. PO ONE (10:30)
--- NOTE | 2018-06-22 14:04 | RAD ---
Video dysphagia study, 06/22/2018: HISTORY: Dysphasia The swallowing mechanism was examined fluoroscopically in the lateral projection while the patient ingested a variety of food materials mixed with barium. 1.3 minutes of fluoroscopy time was used. One video fluoroscopic loop was recorded by member of the speech Department. The patient demonstrated good oral control of the barium materials. There was no significant laryngeal penetration or aspiration when ingesting the thin liquids, thickened materials or barium coated solids. Minimal intermittent vallecular residue was noted. The patient utilized a straw without difficulty. IMPRESSION: No evidence of aspiration. Electronically signed by: Desmond Lind MD (06/22/2018 2:01 PM) [facility]
--- NOTE | 2018-06-22 14:39 | NUR ---
Videoswallow Evaluation completed. Please refer to full report for additional details. Impressions: Minimal oropharyngeal dysphagia. Pt appears at low risk of aspiration w/ recommended diet and general swallow precautions. No penetration or aspiration noted w/ trials of thin liquids via tsp/cup/straw, puree, soft solids and mixed consistency. Pt safe to advance to thin liquids, and no longer needs to have medications crushed. Recommendations: Dysphagia III diet w/ thin liquids. General swallow precautions, ok for straws, ok for whole pills w/ liquids. ST f/u per POC.
[2018-06-22 15:00] VITALS: BP 136/70
[2018-06-22] MEDS: ENOXAPARIN 40 MG/0.4 ML SYRINGE. SQ SCH (15:10)
[2018-06-22 19:00] VITALS: BP 128/68
[2018-06-22] MEDS: IV NORMAL SALINE 1000ML BAG 1,000 ML IV SCH ×2 (19:36→19:50)
[2018-06-22] MEDS: FAMOTIDINE 20 MG TABLET. PO SCH (21:05)
[2018-06-22 23:00] VITALS: BP 138/67
--- NOTE | 2018-06-23 00:06 | PN ---
DATE: 06/22/2018 SUBJECTIVE: The patient is resting, slightly propped up in bed, in no apparent distress. Awake, alert. On questioning him, he said that he tolerated the BiPAP machine well last night, feeling generally well, although after he had eaten breakfast, he became nauseous and was given Zofran. He continued to complain of generalized weakness and inability to sit up or walk and stated that his was looking to him going to a rehab center. PHYSICAL EXAMINATION: GENERAL: When I examined him, he looked pale, but no jaundice, cyanosis or thyromegaly. No jugular venous distention. No lower limb edema. VITAL SIGNS: His heart rate was 83, blood pressure was 119/58, temperature was 97.8, respiratory rate was 16, and oxygen saturation was 93% on 3 liters of oxygen by nasal cannula. HEAD, EYES, EARS, NOSE AND THROAT: Showed normocephalic, atraumatic. NECK: Supple. HEART: Showed normal first and second heart sounds. No gallop, rub or murmur. CHEST: Clear to auscultation. No crepitation or rhonchi. ABDOMEN: Distended, soft, nontender. NEUROLOGIC: He is definitely more awake, alert, responding appropriately. All cranial nerves intact. He moves extremities without difficulty, although has marked muscle wasting and weakness. His intake over the last 24 hours was 495, output was 1100. LABORATORY DATA: As of this morning showed a white cell count 7100, hemoglobin 10, hematocrit 32, MCV 97, and platelet count 230,000. His chemistry showed serum sodium of 145, potassium 3.8, chloride 105, bicarbonate 39, anion gap of 1, BUN 23, creatinine 0.6, estimated GFR was 138 mL per minute. His glucose was 88, calcium was 7.9. ASSESSMENT: 1. Acute on chronic hypoxic hypercapnic respiratory failure, improved on BiPAP machine. 2. Acute exacerbation of chronic obstructive pulmonary disease. 3. Left lower lobe infiltrate. 4. Hypertension. 5. Chronic anemia. 6. Anxiety. 7. Marked muscle weakness and wasting. PLAN: To continue the oral steroids. Continue with physical and occupational therapy. Continue with DVT prophylaxis. He expressed a desire to go to a retirement facility and apparently his is looking into [facility] and[facility]or [facility]. MILES MOJICA MD DR: Tre JOB#: [id number] / [id number]
[2018-06-23 03:00] VITALS: BP 136/73
[2018-06-23 07:00] VITALS: BP 127/69
--- NOTE | 2018-06-23 07:36 | PDOC ---
PULMONARY PROGRESS NOTES Subjective on BIPAP, using every night, sob better, has occ cough Vitals Vital Signs Date Time Temp Pulse Resp B/P (MAP) Pulse Ox O2 Delivery O2 Flow Rate FiO2 06/23/18 03:00 97.5 80 18 136/73 (94) 91 Nasal Cannula 3.0 97.5 ROS: No Nausea, No Chest Pain, No Abdominal Pain, No Increase Cough General: Alert, No acute distress Lungs: Clear Cardiovascular: S1, S2 Abdomen: Soft, Non-tender Neuro Exam: Alert Extremities: Other (EDEMA) Skin: Warm Labs Laboratory Tests Test 06/21/18 07:37 06/21/18 11:19 06/21/18 16:57 06/21/18 20:49 Glucose (Fingerstick) 88 mg/dL (70-99) 108 mg/dL (70-99) 109 mg/dL (70-99) 102 mg/dL (70-99) Test 06/22/18 05:10 06/22/18 07:52 06/22/18 12:05 06/22/18 16:43 Sodium Level 145 mmol/L (136-145) Potassium Level 3.8 mmol/L (3.5-5.1) Chloride Level 105 mmol/L (98-107) Carbon Dioxide Level 39 mmol/L (21-32) Anion Gap 1 (6-14) Blood Urea Nitrogen 23 mg/dL (8-26) Creatinine 0.6 mg/dL (0.7-1.3) Estimated GFR (Cockcroft-Gault) 137.9 Glucose Level 88 mg/dL (70-99) Calcium Level 7.9 mg/dL (8.5-10.1) Glucose (Fingerstick) 73 mg/dL (70-99) 122 mg/dL (70-99) 108 mg/dL (70-99) Test 06/22/18 20:36 Glucose (Fingerstick) 124 mg/dL (70-99) Laboratory Tests Test 06/22/18 07:52 06/22/18 12:05 06/22/18 16:43 06/22/18 20:36 Glucose (Fingerstick) 73 mg/dL (70-99) 122 mg/dL (70-99) 108 mg/dL (70-99) 124 mg/dL (70-99) Medications Active Scripts Medications Dose Route/Sig Max Daily Dose Days Date Category Dose Instructions Percocet 5-325 Mg Tablet (Oxycodone/Acetaminophen) 1 Each Tablet 1 Tab PO PRN Q4-6HRS PRN 06/11/18 Reported Procrit (Epoetin Jeronimo) 10,000 Unit/1 Ml Vial 10,000 Unit IJ 3X/WEEK 06/11/18 Reported Triamcinolone Acetonide 0.1% Oint (Triamcinolone Acetonide) 15 Gm Oint...g. 1 Mayra TP BID 06/11/18 Reported MIX WITH EUCERIN DIRECTED BY PHYSICIAN Bisoprolol Fumarate 5 Mg Tablet 5 Mg PO DAILY 06/11/18 Reported Zofran (Ondansetron Hcl) 4 Mg Tablet 1 Tab PO Q6HRS 06/11/18 Reported Acidophilus Capsule (L. Acidophilus/Pectin, [place]) 1 Each Capsule 1 Each PO DAILY 06/11/18 Reported Proair Hfa (Albuterol Sulfate) 8.5 Gm Hfa.aer.ad 1 Puff INH PRN Q6HRS PRN 06/11/18 Reported Protonix (Pantoprazole Sodium) 20 Mg Tablet.dr 40 Mg PO DAILY 06/11/18 Reported Impression . 1. Acute on chronic hypoxemic/ hypercapnic respiratory failure. Much improved with BIPAP 2. Acute exacerbation of chronic obstructive pulmonary disease. 3. Tobacco dependence, in remission. 4. Hypertension. 5. Chronic anemia. 6. PNEUMONIA POSSIBLE GRAM NEG 7. ANXIETY Plan . EXTUBATED 06/17/ NEEDED BIPAP 4/3 FOR WORSENING HYPERCAPNIA, improved, BIPAP prn during day, cont at night, setting reviewed. CXR WITH NO SIG CHANGE PT DOES HAVE CPAP AT HOME ORAL DIET OFF IV ABX, SPUTUM CULTURES NEG PO STEROIDS, taper by 10 mg q 3d DVT PROPHYLAXIS D/W pt INCREASE ACTIVITY IDRIS CORTES MD Jun 23, 2018 07:36
[2018-06-23] MEDS: INSULIN LISPRO 300 UNITS/3 ML INSULN.PEN. SQ SCH ×3 (08:00→17:00)
[2018-06-23] MEDS: TRIAMCINOLONE ACETONIDE 0.1% TOPICAL OINTMENT 15GM TUBE. TP SCH ×2 (09:00→21:00)
[2018-06-23] MEDS: FAMOTIDINE 20 MG TABLET. PO SCH ×2 (09:30→20:31)
[2018-06-23] MEDS: predniSONE 10 MG TABLET PO SCH (09:30)
[2018-06-23] MEDS: LACTOBACILLUS RHAMNOSUS GG 1 CAPSULE. PO SCH ×2 (09:30→20:36)
[2018-06-23] MEDS: DOXYCYCLINE HYCLATE 100 MG TABLET PO SCH ×2 (09:31→20:31)
[2018-06-23] MEDS: ATENOLOL 50 MG TABLET. PO SCH (09:31)
[2018-06-23] MEDS: IV NORMAL SALINE 1000ML BAG 1,000 ML IV SCH ×2 (09:34→23:42)
[2018-06-23 11:00] VITALS: BP 139/85
[2018-06-23] MEDS: ONDANSETRON ODT 4 MG TAB.RAPDIS. PO PRN ×2 (12:23→21:33)
[2018-06-23 15:00] VITALS: BP 129/66
[2018-06-23] MEDS: ENOXAPARIN 40 MG/0.4 ML SYRINGE. SQ SCH (15:05)
[2018-06-23 19:00] VITALS: BP 129/67
--- NOTE | 2018-06-23 22:31 | PN ---
DATE: 06/23/2018 SUBJECTIVE: The patient is resting, slightly propped up in bed, in no apparent distress. On questioning him, he said that he was short of breath overnight and requested to stay on his BiPAP machine slightly longer this morning; however, he denied any chest pain, denied any chills, rigors or fever. PHYSICAL EXAMINATION: GENERAL: When I examined him, he was pale, but no jaundice, cyanosis, or thyromegaly. No jugular venous distension. No lower limb edema. VITAL SIGNS: His heart rate was 77, blood pressure was 127/69, temperature was 98.1, respiratory rate was 16, and oxygen saturation was 93%. HEAD, EYES, EARS, NOSE AND THROAT: Normocephalic, atraumatic. NECK: Supple. HEART: Showed normal first and second sounds. No gallop, rub or murmur. CHEST: Clear to auscultation. No crepitation or rhonchi. ABDOMEN: Distended, soft, nontender. NEUROLOGIC: He was awake, alert, responding appropriately. All cranial nerves intact. He moves extremities without difficulty. His intake over the last 24 hours was 960 and output was 1415. LABORATORY DATA: Showed blood sugars well within acceptable range. As of yesterday, his serum sodium 145, potassium 3.8, chloride 105, bicarbonate 39, anion gap 1, BUN 23, creatinine 0.6, estimated GFR was 38 mL per minute. His glucose was 88, calcium was 7.9, white cell count was 7000, hemoglobin 10, hematocrit 32, MCV was 97 and platelet count 230,000. ASSESSMENT: 1. [id number] hypoxic hypercapnic respiratory failure, improved on BiPAP machine. 2. Acute exacerbation of chronic obstructive pulmonary disease. 3. Left lower lobe infiltrate for which he completed IV antibiotic. 4. Hypertension. 5. Chronic anemia. 6. Anxiety. 7. Marked muscle wasting and weakness. PLAN: To continue with oral steroids. Continue with physical and occupational therapy. Continue DVT prophylaxis. The patient expressed desire to go to a nursing home facility to continue the process of rehabilitation and I did actually consult the pillowcase cleaner to facilitate this probably on Monday. MILES MOJICA MD DR: BELINDA/елена JOB#: [id number] / [id number]
[2018-06-23 23:00] VITALS: BP 140/70
[2018-06-24 03:00] VITALS: BP 132/65
[2018-06-24 07:00] VITALS: BP 136/70
[2018-06-24] MEDS: INSULIN LISPRO 300 UNITS/3 ML INSULN.PEN. SQ SCH ×3 (07:58→16:36)
[2018-06-24] MEDS: ONDANSETRON ODT 4 MG TAB.RAPDIS. PO PRN ×2 (08:30→12:34)
[2018-06-24] MEDS: TRIAMCINOLONE ACETONIDE 0.1% TOPICAL OINTMENT 15GM TUBE. TP SCH ×2 (08:40→21:00)
[2018-06-24] MEDS: LACTOBACILLUS RHAMNOSUS GG 1 CAPSULE. PO SCH ×3 (09:00→20:42)
[2018-06-24] MEDS: DOXYCYCLINE HYCLATE 100 MG TABLET PO SCH ×2 (10:45→20:42)
[2018-06-24] MEDS: predniSONE 10 MG TABLET PO SCH (10:45)
[2018-06-24] MEDS: FAMOTIDINE 20 MG TABLET. PO SCH ×2 (10:45→20:42)
[2018-06-24] MEDS: ATENOLOL 50 MG TABLET. PO SCH (10:45)
[2018-06-24 11:00] VITALS: BP 137/73
--- NOTE | 2018-06-24 13:59 | PN ---
DATE: 06/24/2018 SUBJECTIVE: The patient continues to complain of nausea and requesting Zofran constantly, although has denied any vomiting. He continued to be on BiPAP machine at nighttime and denied any abdominal pain. Denied any diarrhea or constipation. PHYSICAL EXAMINATION: GENERAL: When I examined him this morning, he was pale, but no jaundice, cyanosis or thyromegaly. No jugular venous distension. No lower limb edema. VITAL SIGNS: His heart rate was 84, blood pressure was 136/70, temperature was 97.5, respiratory rate was 16 and oxygen saturation was 91% on 3 liters of oxygen. HEAD, EYES, EARS, NOSE AND THROAT: Showed normocephalic, atraumatic. NECK: Supple. HEART: Showed normal first and second heart sounds. No gallop, rub or murmur. CHEST: Clear to auscultation. No crepitation or rhonchi. ABDOMEN: Slightly distended, soft, nontender. NEUROLOGIC: He is awake, alert, responding appropriately. All cranial nerves intact. He moves extremities without difficulty. He continued to be mostly bedbound, chair bound. He requires assistance with transfer from bed to his recliner. ASSESSMENT: 1. Acute on chronic hypoxic hypercapnic respiratory failure, improved with BiPAP machine. 2. Acute exacerbation of chronic obstructive pulmonary disease. 3. Left lower lobe infiltrate, for which he has completed IV antibiotic. 4. Hypertension. 5. Chronic anemia. 6. Anxiety. 7. Marked muscle wasting and weakness and deconditioning. PLAN: To continue with oral steroids. Continue with physical and occupational therapy. Continue DVT prophylaxis. If he is accepted tomorrow at the care home facility, we will discharge him there provided the netezza developer agreeable to that. MILES MOJICA MD DR: BELINDA/елена JOB#: [id number] / [id number]
[2018-06-24] MEDS: ENOXAPARIN 40 MG/0.4 ML SYRINGE. SQ SCH (14:14)
--- NOTE | 2018-06-24 14:57 | PDOC ---
PULMONARY PROGRESS NOTES Subjective BIPAP, using every night, sob better, has occ cough Vitals Vital Signs Date Time Temp Pulse Resp B/P (MAP) Pulse Ox O2 Delivery O2 Flow Rate FiO2 06/24/18 11:00 97.7 87 18 137/73 (94) 96 Nasal Cannula 3.0 97.7 ROS: No Nausea, No Chest Pain, No Abdominal Pain, No Increase Cough General: Alert, No acute distress Lungs: Clear Cardiovascular: S1, S2 Abdomen: Soft, Non-tender Neuro Exam: Alert Extremities: Other (EDEMA) Skin: Warm Labs Laboratory Tests Test 06/22/18 16:43 06/22/18 20:36 06/23/18 08:00 06/23/18 12:03 Glucose (Fingerstick) 108 mg/dL (70-99) 124 mg/dL (70-99) 78 mg/dL (70-99) 119 mg/dL (70-99) Test 06/23/18 16:34 06/23/18 21:29 06/24/18 07:36 06/24/18 11:35 Glucose (Fingerstick) 117 mg/dL (70-99) 91 mg/dL (70-99) 75 mg/dL (70-99) 96 mg/dL (70-99) Laboratory Tests Test 06/23/18 16:34 06/23/18 21:29 06/24/18 07:36 06/24/18 11:35 Glucose (Fingerstick) 117 mg/dL (70-99) 91 mg/dL (70-99) 75 mg/dL (70-99) 96 mg/dL (70-99) Medications Active Scripts Medications Dose Route/Sig Max Daily Dose Days Date Category Dose Instructions Percocet 5-325 Mg Tablet (Oxycodone/Acetaminophen) 1 Each Tablet 1 Tab PO PRN Q4-6HRS PRN 06/11/18 Reported Procrit (Epoetin Jeronimo) 10,000 Unit/1 Ml Vial 10,000 Unit IJ 3X/WEEK 06/11/18 Reported Triamcinolone Acetonide 0.1% Oint (Triamcinolone Acetonide) 15 Gm Oint...g. 1 Mayra TP BID 06/11/18 Reported MIX WITH EUCERIN DIRECTED BY PHYSICIAN Bisoprolol Fumarate 5 Mg Tablet 5 Mg PO DAILY 06/11/18 Reported Zofran (Ondansetron Hcl) 4 Mg Tablet 1 Tab PO Q6HRS 06/11/18 Reported Acidophilus Capsule (L. Acidophilus/Pectin, [place]) 1 Each Capsule 1 Each PO DAILY 06/11/18 Reported Proair Hfa (Albuterol Sulfate) 8.5 Gm Hfa.aer.ad 1 Puff INH PRN Q6HRS PRN 06/11/18 Reported Protonix (Pantoprazole Sodium) 20 Mg Tablet.dr 40 Mg PO DAILY 06/11/18 Reported Impression . 1. Acute on chronic hypoxemic/ hypercapnic respiratory failure. Much improved with BIPAP 2. Acute exacerbation of chronic obstructive pulmonary disease. 3. Tobacco dependence, in remission. 4. Hypertension. 5. Chronic anemia. 6. PNEUMONIA POSSIBLE GRAM NEG 7. ANXIETY Plan . EXTUBATED 06/17/ NEEDED BIPAP 4/3 FOR WORSENING HYPERCAPNIA, improved, BIPAP prn during day, cont at night, setting reviewed. CXR WITH NO SIG CHANGE PT DOES HAVE CPAP AT HOME ORAL DIET OFF IV ABX, SPUTUM CULTURES NEG PO STEROIDS, taper by 10 mg q 3d DVT PROPHYLAXIS D/W pt INCREASE ACTIVITY GLENROY ALVARENGA MD Jun 24, 2018 14:57
[2018-06-24 15:00] VITALS: BP 113/65
[2018-06-24 19:00] VITALS: BP 120/63
[2018-06-24 23:00] VITALS: BP 111/59
[2018-06-25 03:00] VITALS: BP 107/57
[2018-06-25 06:00] LABS: HEMATOCRIT 31.8 % (39.0-53.0); HEMOGLOBIN 10.3 g/dL (13.0-17.5); RED BLOOD COUNT 3.33 x10^6/uL (4.30-5.70); RED CELL DISTRIBUTION WIDTH 13.8 % (11.5-14.5); WHITE BLOOD COUNT 8.8 x10^3/uL (4.0-11.0)
[2018-06-25 06:21] LABS: ALBUMIN 2.2 g/dL (3.4-5.0); ALBUMIN/GLOBULIN RATIO 0.7 (1.0-1.7); CALCIUM 8.2 mg/dL (8.5-10.1); CREATININE 0.6 mg/dL (0.7-1.3); GFR 137.9; POTASSIUM 3.5 mmol/L (3.5-5.1); TOTAL BILIRUBIN 0.4 mg/dL (0.2-1.0); TOTAL PROTEIN 5.2 g/dL (6.4-8.2)
[2018-06-25 07:00] VITALS: BP 116/64
[2018-06-25] MEDS: INSULIN LISPRO 300 UNITS/3 ML INSULN.PEN. SQ SCH ×3 (08:00→17:00)
[2018-06-25] MEDS: ONDANSETRON ODT 4 MG TAB.RAPDIS. PO PRN ×2 (10:02→19:01)
[2018-06-25] MEDS: TRIAMCINOLONE ACETONIDE 0.1% TOPICAL OINTMENT 15GM TUBE. TP SCH ×2 (10:03→20:36)
[2018-06-25] MEDS: predniSONE 10 MG TABLET PO SCH (10:03)
[2018-06-25] MEDS: LACTOBACILLUS RHAMNOSUS GG 1 CAPSULE. PO SCH ×2 (10:04→20:37)
[2018-06-25] MEDS: ATENOLOL 50 MG TABLET. PO SCH (10:04)
[2018-06-25] MEDS: DOXYCYCLINE HYCLATE 100 MG TABLET PO SCH ×2 (10:04→20:37)
[2018-06-25] MEDS: FAMOTIDINE 20 MG TABLET. PO SCH ×2 (10:04→20:37)
[2018-06-25 11:08] VITALS: BP 129/65
--- NOTE | 2018-06-25 12:04 | NUR ---
SW following for discharge planning. Pt accepted at [facility], pending insurance auth. Discussed with Dr. Cornejo, pt can discharge today if okay with pulmonary. SW will continue to follow.
--- NOTE | 2018-06-25 13:48 | NUR ---
SW following. Discussed with RN, pulmonary has signed off. SW spoke with Kari at [facility] to advise OT note is in and pt does have bipap from home, which SW confirmed with pt's , Adela. SW awaiting elma to approve and for pt's dc paperwork to fax to [facility] (ph: [phone], fax: [phone]. admissions phone: [phone]). SW will continue to follow.
--- NOTE | 2018-06-25 14:04 | PDOC ---
PULMONARY PROGRESS NOTES Subjective BIPAP, using every night, sob better, has occ cough Vitals Vital Signs Date Time Temp Pulse Resp B/P (MAP) Pulse Ox O2 Delivery O2 Flow Rate FiO2 06/25/18 11:08 98.1 88 16 129/65 (86) 92 Nasal Cannula 3.0 98.1 ROS: No Nausea, No Chest Pain, No Abdominal Pain, No Increase Cough General: Alert, No acute distress Lungs: Clear Cardiovascular: S1, S2 Abdomen: Soft, Non-tender Neuro Exam: Alert Extremities: Other (EDEMA) Skin: Warm Labs Laboratory Tests Test 06/23/18 16:34 06/23/18 21:29 06/24/18 07:36 06/24/18 11:35 Glucose (Fingerstick) 117 mg/dL (70-99) 91 mg/dL (70-99) 75 mg/dL (70-99) 96 mg/dL (70-99) Test 06/24/18 16:28 06/24/18 21:02 06/25/18 05:30 06/25/18 07:27 Glucose (Fingerstick) 105 mg/dL (70-99) 162 mg/dL (70-99) 77 mg/dL (70-99) White Blood Count 8.8 x10^3/uL (4.0-11.0) Red Blood Count 3.33 x10^6/uL (4.30-5.70) Hemoglobin 10.3 g/dL (13.0-17.5) Hematocrit 31.8 % (39.0-53.0) Mean Corpuscular Volume 95 fL (79-100) Mean Corpuscular Hemoglobin 31 pg (25-35) Mean Corpuscular Hemoglobin Concent 32 g/dL (31-37) Red Cell Distribution Width 13.8 % (11.5-14.5) Platelet Count 196 x10^3/uL (140-400) Sodium Level 145 mmol/L (136-145) Potassium Level 3.5 mmol/L (3.5-5.1) Chloride Level 102 mmol/L (98-107) Carbon Dioxide Level 40 mmol/L (21-32) Anion Gap 3 (6-14) Blood Urea Nitrogen 15 mg/dL (8-26) Creatinine 0.6 mg/dL (0.7-1.3) Estimated GFR (Cockcroft-Gault) 137.9 BUN/Creatinine Ratio 25 (6-20) Glucose Level 78 mg/dL (70-99) Calcium Level 8.2 mg/dL (8.5-10.1) Total Bilirubin 0.4 mg/dL (0.2-1.0) Aspartate Amino Transf (AST/SGOT) 21 U/L (15-37) Alanine Aminotransferase (ALT/SGPT) 50 U/L (16-63) Alkaline Phosphatase 46 U/L (46-116) Total Protein 5.2 g/dL (6.4-8.2) Albumin 2.2 g/dL (3.4-5.0) Albumin/Globulin Ratio 0.7 (1.0-1.7) Test 06/25/18 11:51 Glucose (Fingerstick) 107 mg/dL (70-99) Laboratory Tests Test 06/24/18 16:28 06/24/18 21:02 06/25/18 05:30 06/25/18 07:27 Glucose (Fingerstick) 105 mg/dL (70-99) 162 mg/dL (70-99) 77 mg/dL (70-99) White Blood Count 8.8 x10^3/uL (4.0-11.0) Red Blood Count 3.33 x10^6/uL (4.30-5.70) Hemoglobin 10.3 g/dL (13.0-17.5) Hematocrit 31.8 % (39.0-53.0) Mean Corpuscular Volume 95 fL (79-100) Mean Corpuscular Hemoglobin 31 pg (25-35) Mean Corpuscular Hemoglobin Concent 32 g/dL (31-37) Red Cell Distribution Width 13.8 % (11.5-14.5) Platelet Count 196 x10^3/uL (140-400) Sodium Level 145 mmol/L (136-145) Potassium Level 3.5 mmol/L (3.5-5.1) Chloride Level 102 mmol/L (98-107) Carbon Dioxide Level 40 mmol/L (21-32) Anion Gap 3 (6-14) Blood Urea Nitrogen 15 mg/dL (8-26) Creatinine 0.6 mg/dL (0.7-1.3) Estimated GFR (Cockcroft-Gault) 137.9 BUN/Creatinine Ratio 25 (6-20) Glucose Level 78 mg/dL (70-99) Calcium Level 8.2 mg/dL (8.5-10.1) Total Bilirubin 0.4 mg/dL (0.2-1.0) Aspartate Amino Transf (AST/SGOT) 21 U/L (15-37) Alanine Aminotransferase (ALT/SGPT) 50 U/L (16-63) Alkaline Phosphatase 46 U/L (46-116) Total Protein 5.2 g/dL (6.4-8.2) Albumin 2.2 g/dL (3.4-5.0) Albumin/Globulin Ratio 0.7 (1.0-1.7) Test 06/25/18 11:51 Glucose (Fingerstick) 107 mg/dL (70-99) Medications Active Scripts Medications Dose Route/Sig Max Daily Dose Days Date Category Dose Instructions Percocet 5-325 Mg Tablet (Oxycodone/Acetaminophen) 1 Each Tablet 1 Tab PO PRN Q4-6HRS PRN 06/11/18 Reported Procrit (Epoetin [place]on[place]) 10,000 Unit/1 Ml Vial 10,000 Unit IJ 3X/WEEK 06/11/18 Reported Triamcinolone Acetonide 0.1% Oint (Triamcinolone Acetonide) 15 Gm Oint...g. 1 Mayra TP BID 06/11/18 Reported MIX WITH EUCERIN DIRECTED BY PHYSICIAN Bisoprolol Fumarate 5 Mg Tablet 5 Mg PO DAILY 06/11/18 Reported Zofran (Ondansetron Hcl) 4 Mg Tablet 1 Tab PO Q6HRS 06/11/18 Reported Acidophilus Capsule (L. Acidophilus/Pectin, [place]) 1 Each Capsule 1 Each PO DAILY 06/11/18 Reported Proair Hfa (Albuterol Sulfate) 8.5 Gm Hfa.aer.ad 1 Puff INH PRN Q6HRS PRN 06/11/18 Reported Protonix (Pantoprazole Sodium) 20 Mg Tablet.dr 40 Mg PO DAILY 06/11/18 Reported Impression . 1. Acute on chronic hypoxemic/ hypercapnic respiratory failure. Much improved with BIPAP 2. Acute exacerbation of chronic obstructive pulmonary disease. 3. Tobacco dependence, in remission. 4. Hypertension. 5. Chronic anemia. 6. PNEUMONIA POSSIBLE GRAM NEG 7. ANXIETY Plan . EXTUBATED 06/17/ NEEDED BIPAP 4/3 FOR WORSENING HYPERCAPNIA, improved with BIPAP , cont at night, setting reviewed. CXR WITH NO SIG CHANGE PT DOES HAVE CPAP AT HOME ORAL DIET OFF IV ABX, SPUTUM CULTURES NEG PO STEROIDS, taper DVT PROPHYLAXIS D/W pt INCREASE ACTIVITY NOT READY FOR HOME OK WITH DC TO GLENROY STONE MD Jun 25, 2018 14:04
[2018-06-25] MEDS ORDERED: DOXY100T PO (14:09)
[2018-06-25] MEDS ORDERED: ENOX40DI3 SQ (14:09)
--- NOTE | 2018-06-25 14:10 | SNU/HH DC ---
DISCHARGE ORDERS DISCHARGE INFORMATION: CONDITION ON DISCHARGE: Stable CODE STATUS: Code Status: Full PRISON: SNF STAY <30 DAYS: Yes POST DISCHARGE ORDERS: ACTIVITY ORDERS: Activity as tolerated DIET AFTER DISCHARGE: Regular TREATMENT/EQUIPMENT ORDERS: RESPIRATORY EQUIPMENT NEEDED: Oxygen, Nebulizer, BiPAP Physical Therapy For: Evalulation/Treatment Occupational Therapy For: Evaluation/Treatment DISCHARGE MEDICATIONS: Home Meds Reported Medications Alprazolam (ALPRAZOLAM) 0.25 Mg Tablet, 0.25 MG PO PRN Q6HRS PRN for ANXIETY / AGITATION, TAB 0 Refills 06/18/18 Fluocinonide/Emollient (FLUOCINONIDE-E 0.05% CREAM) 15 Gm Cream..g., 15 GM TP QIDPRN PRN for DRY SKIN / SCALING, EACH 06/18/18 Fluticasone/Umeclidin/Vilanter (Trelegy Ellipta 100-62.5-25) 1 Each Blst.w.dev, 1 EACH IH DAILY for COPD 06/18/18 Benzonatate (TESSALON PERLE) 100 Mg Capsule, 200 MG PO BID PRN for COUGH, CAP 06/18/18 Cholecalciferol (Vitamin D3) (D3-50) 50,000 Unit Capsule, 93254 UNIT PO WEEKLY for supplement, CAP 06/18/18 Lisinopril (LISINOPRIL) 2.5 Mg Tablet, 2.5 MG PO DAILY for FOR HYPERTENSION, # 30 TAB 0 Refills 06/18/18 Sucralfate (SUCRALFATE) 1 Gm Tablet, 1 TAB PO TID for ulcer, #90 TAB 11 Refills 06/16/18 Oxycodone/Apap 5-325 (PERCOCET 5-325 MG TABLET ) 1 Each Tablet, 1 TAB PO PRN Q4-6HRS PRN for PAIN, TAB 0 Refills 06/11/18 Epoetin Jeronimo (PROCRIT) 10,000 Unit/1 Ml Vial, 17589 UNIT IJ 3X/WEEK for erythropoietin, EACH 06/11/18 Triamcinolone Acetonide (TRIAMCINOLONE ACETONIDE 0.1% OINT) 15 Gm Oint...g., 1 CM TP BID for WOUND CARE, #1 TUBE MIX WITH EUCERIN DIRECTED BY PHYSICIAN 06/11/18 Bisoprolol Fumarate (BISOPROLOL FUMARATE) 5 Mg Tablet, 5 MG PO DAILY for bb, TAB 06/11/18 Ondansetron Hcl (ZOFRAN) 4 Mg Tablet, 1 TAB PO Q6HRS for n/v, #20 TAB 06/11/18 L. Acidophilus/Pectin, [place] (Acidophilus Capsule) 1 Each Capsule, 1 EACH PO DAILY for probiotic, CAP 06/11/18 Albuterol Sulfate (Proair Hfa) 8.5 Gm Hfa.aer.ad, 1 PUFF INH PRN Q6HRS PRN for SHORTNESS OF BREATH, INHALER 06/11/18 Pantoprazole Sodium (PROTONIX) 20 Mg Tablet.dr, 40 MG PO DAILY for gerd, TAB 06/11/18 MILES MOJICA MD Jun 25, 2018 14:10
--- NOTE | 2018-06-25 14:24 | SNU/HH DC ---
DISCHARGE ORDERS DISCHARGE INFORMATION: CONDITION ON DISCHARGE: Stable CODE STATUS: Code Status: Full LONG-TERM: SNF STAY <30 DAYS: Yes POST DISCHARGE ORDERS: ACTIVITY ORDERS: Activity as tolerated DIET AFTER DISCHARGE: Regular TREATMENT/EQUIPMENT ORDERS: RESPIRATORY EQUIPMENT NEEDED: Oxygen, Nebulizer, BiPAP Physical Therapy For: Evalulation/Treatment Occupational Therapy For: Evaluation/Treatment DISCHARGE MEDICATIONS: Home Meds Active Scripts Enoxaparin Sodium (ENOXAPARIN SODIUM) 40 Mg/0.4 Ml Disp.syrin, 40 MG SQ Q24H for dvt MDD 1 for 10 Days, DIS.SYR Prov:MILES MOJICA MD 06/25/18 Doxycycline Hyclate (DOXYCYCLINE HYCLATE) 100 Mg Tablet, 100 MG PO BID for pneumonia MDD 2 for 5 Days, #10 TAB Prov:MILES MOJICA MD 06/25/18 Reported Medications Fluocinonide/Emollient (FLUOCINONIDE-E 0.05% CREAM) 15 Gm Cream..g., 15 GM TP QIDPRN PRN for DRY SKIN / SCALING, EACH 06/18/18 Fluticasone/Umeclidin/Vilanter (Trelegy Ellipta 100-62.5-25) 1 Each Blst.w.dev, 1 EACH IH DAILY for COPD 06/18/18 Benzonatate (TESSALON PERLE) 100 Mg Capsule, 200 MG PO BID PRN for COUGH, CAP 06/18/18 Cholecalciferol (Vitamin D3) (D3-50) 50,000 Unit Capsule, 11340 UNIT PO WEEKLY for supplement, CAP 06/18/18 Lisinopril (LISINOPRIL) 2.5 Mg Tablet, 2.5 MG PO DAILY for FOR HYPERTENSION, # 30 TAB 0 Refills 06/18/18 Sucralfate (SUCRALFATE) 1 Gm Tablet, 1 TAB PO TID for ulcer, #90 TAB 11 Refills 06/16/18 Epoetin Jeronimo (PROCRIT) 10,000 Unit/1 Ml Vial, 95083 UNIT IJ 3X/WEEK for erythropoietin, EACH 06/11/18 Triamcinolone Acetonide (TRIAMCINOLONE ACETONIDE 0.1% OINT) 15 Gm Oint...g., 1 CM TP BID for WOUND CARE, #1 TUBE MIX WITH EUCERIN DIRECTED BY PHYSICIAN 06/11/18 Bisoprolol Fumarate (BISOPROLOL FUMARATE) 5 Mg Tablet, 5 MG PO DAILY for bb, TAB 06/11/18 Ondansetron Hcl (ZOFRAN) 4 Mg Tablet, 1 TAB PO Q6HRS for n/v, #20 TAB 06/11/18 L. Acidophilus/Pectin, [place] (Acidophilus Capsule) 1 Each Capsule, 1 EACH PO DAILY for probiotic, CAP 06/11/18 Albuterol Sulfate (Proair Hfa) 8.5 Gm Hfa.aer.ad, 1 PUFF INH PRN Q6HRS PRN for SHORTNESS OF BREATH, INHALER 06/11/18 Pantoprazole Sodium (PROTONIX) 20 Mg Tablet.dr, 40 MG PO DAILY for gerd, TAB 06/11/18 Discontinued Reported Medications Oxycodone/Apap 5-325 (PERCOCET 5-325 MG TABLET ) 1 Each Tablet, 1 TAB PO PRN Q4-6HRS PRN for PAIN, TAB 0 Refills 06/11/18 MILES MOJICA MD Jun 25, 2018 14:24
[2018-06-25 14:41] VITALS: BP 123/72
--- NOTE | 2018-06-25 14:41 | NUR ---
SW following pt. Orders faxed to [facility] and Packet on Chart with EMS form. Awaiting on insurance auth from [facility]. NIKITA provided Mirtha from , RN phone number to call once insurance approves SNU. RN aware to call [facility], phone: [phone] to set up transport once insurance approves SNU. Discussed with RN and Mirtha at . Pt's choice and rights forms signed by pt's and copies placed on chart.
[2018-06-25] MEDS: ENOXAPARIN 40 MG/0.4 ML SYRINGE. SQ SCH (16:10)
[2018-06-25 19:00] VITALS: BP 129/63
[2018-06-25] MEDS ORDERED: ACETAMINOPHEN 500 MG TABLET PO PRN (19:15)
[2018-06-25] MEDS: LIDOCAINE (700MG/PATCH) PATCH. TD SCH (19:22)
[2018-06-25] MEDS ORDERED: PATCH REMOVAL. MC SCH (21:00)
--- NOTE | 2018-06-25 21:55 | DS ---
DATE OF DISCHARGE: HOSPITAL COURSE: The patient is a 58-year-old male patient who was admitted to the Emergency Room of [facility] where he arrived complaining of shortness of breath and hypoxia. He is known to have COPD and usually was on 4 liters of oxygen, but for a few days prior to admission, he was on 5-6 liters, had increasing shortness of breath, dry cough over the last 2 days prior to admission without any fever, chills, chest pain, sick contact. Reportedly, his oxygen saturation was only 80% on 6 liters of oxygen that improved with nonrebreather mask and DuoNeb to 99%. He has refused to answer most of the questions. His was helping with the history. Apparently, he has history of admission to [facility] before and states that he does not want to have intubation as long as possible. He was put on BiPAP machine, but his blood gases has worsened and he did not do well on BiPAP and therefore he ended up being intubated, was transferred to [facility] ICU to continue mechanical ventilation and to consult the public records researcher. He was sedated, mechanically ventilated and was started on steroids as well as Pulmicort, transpired that he has also left lower lobe infiltrate for which he was started on IV antibiotic. He was successfully extubated, was transferred to the floor only to bring back to the ICU with acute hypoxic-hypercapnic respiratory failure for which he was treated with BiPAP machine and did well. PHYSICAL EXAMINATION: GENERAL: When I saw him today, he was resting slightly propped up in bed, in no apparent respiratory distress, awake, alert, responding appropriately. On questioning him, he denied any complaint, although he continued to have generalized weakness and marked deconditioning. He was seen by the public records researcher who basically recommended that patient can be discharged to a senior care facility to continue with the process of rehabilitation and the patient was discharged to [facility] to continue on tapering course of steroids as well as all his bronchodilator and all other medication, start the process of physical and occupational therapy. When I saw him this afternoon, he looked well and was clearly in no apparent respiratory distress. Slightly pale. No jaundice, cyanosis, or thyromegaly. No jugular venous distension. No lower limb edema. VITAL SIGNS: His heart rate was 76, blood pressure was 116/64, temperature was 97.7, respiratory rate was 16, and oxygen saturation was 96% on 3 liters of oxygen. HEAD, EYES, EARS, NOSE AND THROAT: Showed normocephalic, atraumatic. NECK: Supple. HEART: Showed normal first and second sounds. No gallop, rub or murmur. CHEST: Clear to auscultation. No crepitation or rhonchi. ABDOMEN: Distended, soft, nontender. NEUROLOGIC: He was awake, alert, responding appropriately. All cranial nerves intact. He moves extremities without difficulty. He continued to be extremely weak and deconditioned and he needs 2-person assist to transfer from bed to chair. His intake was 1300, output was 800. LABORATORY DATA: His lab work this morning showed a white cell count of 8800, hemoglobin 10, hematocrit 31, MCV 95, and platelet count of 196,000. Serum sodium was 145, potassium 3.5, chloride 102, bicarbonate 40, anion gap of 3, BUN 15, creatinine 0.6, estimated GFR was 138 mL per minute. His glucose was 78, calcium was 8.2. Total bilirubin, AST, ALT, alkaline phosphatase were normal. Total protein was 5.2, albumin was 2.2. DISCHARGE MEDICATIONS: He will be discharged to [facility] to continue on doxycycline 100 mg twice a day for 5 days, Lovenox 40 mg subcutaneously daily for 10 days, albuterol sulfate 1 puff every 6 hours, alprazolam 0.5 mg every 6 hours, benzonatate 100 mg twice a day, bisoprolol fumarate 5 mg daily, cholecalciferol 50,000 units weekly, epoetin stefania for Procrit 10,000 units 3 times per week, fluocinonide cream applied topically 4 times a day, Trelegy Ellipta 100/62.5/25 one inhalation daily, Lactobacillus acidophilus 1 capsule daily, lisinopril 2.5 mg daily, ondansetron for Zofran 4 mg every 6 hours, Protonix 40 mg daily, sucralfate 1 gram 3 times a day, triamcinolone acetonide cream applied topically twice a day. FINAL DISCHARGE DIAGNOSES: 1. [id number] hypoxic hypercapnic respiratory failure, improved. 2. Acute exacerbation of chronic obstructive pulmonary disease. 3. Left lower lobe infiltrate for which he has completed IV antibiotic. 4. Hypertension. 5. Chronic anemia. 6. Anxiety. 7. Marked muscle wasting, weakness and deconditioning. The patient was discharged to [facility] to continue the process of rehabilitation. MILES MOJICA MD DR: BELINDA/елена JOB#: [id number] / [id number]
[2018-06-25 22:58] VITALS: BP 118/65
--- NOTE | 2018-06-26 00:19 | PN ---
DATE: 06/25/2018 SUBJECTIVE: The patient is resting, slightly propped up in bed, in no apparent respiratory distress. He is awake, alert. On questioning him, he denied any complaint. The nursing staff did not voice any concerns that he had an uneventful night. PHYSICAL EXAMINATION: GENERAL: When I examined him, he looked pale, but not jaundiced or cyanosed from thyromegaly. No jugular venous distention. No lower limb edema. VITAL SIGNS: His heart rate was 76, blood pressure was 116/64, temperature was 97.7, respiratory rate was 16 and oxygen saturation was 96% on 3 liters of oxygen by nasal cannula. HEENT: Examination of the head, eyes, ears, nose and throat showed normocephalic, atraumatic. NECK: Supple. HEART: Showed normal first and second heart sounds. No gallop, rub or murmur. CHEST: Clear to auscultation. No crepitation or rhonchi. ABDOMEN: Distended, soft and nontender. No guarding or rigidity. No organomegaly. All hernial orifices intact. Bowel sounds normal. NEUROLOGIC: He was definitely more awake, alert, responding appropriately. All cranial nerves intact. He moved extremities without difficulty, although he had marked muscle wasting and weakness. His intake was 1300, output was 800. LABORATORY DATA: His lab work as of this morning showed a white cell count of 8800, hemoglobin 10, hematocrit 32, MCV 95 and platelet count 296,000 . His chemistry showed a serum sodium of 145, potassium 3.5, chloride 102, bicarbonate 40, anion gap of 3, BUN 15, creatinine 0.6, estimated GFR was 138 mL per minute, his glucose 125 and calcium was 8.2. Total bilirubin, AST, ALT and alkaline phosphatase were normal. Total protein was 5.2. Albumin was 2.2. ASSESSMENT: 1. [id number] hypoxic hypercapnic respiratory failure, improved, now on BiPAP machine. 2. Acute exacerbation of chronic obstructive pulmonary disease. 3. Left lower lobe infiltrate, for which he has completed IV antibiotic. 4. Hypertension. 5. Chronic anemia. 6. Anxiety. 7. Marked muscle wasting, weakness and deconditioning. PLAN: Plan is to continue with oral steroids and bronchodilators. Continue with DVT prophylaxis. Continue with physical and occupational therapy. Await evaluation by the custom protection officer and if he is agreeable, we can discharge him to longterm facility to continue with the process of rehabilitation there. MILES MOJICA MD DR: BELINDA/елена JOB#: [id number] / [id number]
[2018-06-26 03:00] VITALS: BP 119/58
[2018-06-26 07:00] VITALS: BP 138/65
[2018-06-26] MEDS: INSULIN LISPRO 300 UNITS/3 ML INSULN.PEN. SQ SCH ×2 (08:00→12:00)
--- NOTE | 2018-06-26 08:09 | NUR ---
Pt to d/c to [facility]. Report called to "nurse Jefferson". Refused report by nurse due to "meds are messed up". Will attempt to return call at a later time.
--- NOTE | 2018-06-26 08:35 | PDOC ---
PULMONARY PROGRESS NOTES Subjective BIPAP, using every night, sob better, has occ cough Vitals Vital Signs Date Time Temp Pulse Resp B/P (MAP) Pulse Ox O2 Delivery O2 Flow Rate FiO2 06/26/18 07:00 98.0 73 16 138/65 (89) 92 Room Air 98.0 06/26/18 03:00 3.0 ROS: No Nausea, No Chest Pain, No Abdominal Pain, No Increase Cough General: Alert, No acute distress Lungs: Clear Cardiovascular: S1, S2 Abdomen: Soft, Non-tender Neuro Exam: Alert Extremities: Other (EDEMA) Skin: Warm Labs Laboratory Tests Test 06/24/18 11:35 06/24/18 16:28 06/24/18 21:02 06/25/18 05:30 Glucose (Fingerstick) 96 mg/dL (70-99) 105 mg/dL (70-99) 162 mg/dL (70-99) White Blood Count 8.8 x10^3/uL (4.0-11.0) Red Blood Count 3.33 x10^6/uL (4.30-5.70) Hemoglobin 10.3 g/dL (13.0-17.5) Hematocrit 31.8 % (39.0-53.0) Mean Corpuscular Volume 95 fL (79-100) Mean Corpuscular Hemoglobin 31 pg (25-35) Mean Corpuscular Hemoglobin Concent 32 g/dL (31-37) Red Cell Distribution Width 13.8 % (11.5-14.5) Platelet Count 196 x10^3/uL (140-400) Sodium Level 145 mmol/L (136-145) Potassium Level 3.5 mmol/L (3.5-5.1) Chloride Level 102 mmol/L (98-107) Carbon Dioxide Level 40 mmol/L (21-32) Anion Gap 3 (6-14) Blood Urea Nitrogen 15 mg/dL (8-26) Creatinine 0.6 mg/dL (0.7-1.3) Estimated GFR (Cockcroft-Gault) 137.9 BUN/Creatinine Ratio 25 (6-20) Glucose Level 78 mg/dL (70-99) Calcium Level 8.2 mg/dL (8.5-10.1) Total Bilirubin 0.4 mg/dL (0.2-1.0) Aspartate Amino Transf (AST/SGOT) 21 U/L (15-37) Alanine Aminotransferase (ALT/SGPT) 50 U/L (16-63) Alkaline Phosphatase 46 U/L (46-116) Total Protein 5.2 g/dL (6.4-8.2) Albumin 2.2 g/dL (3.4-5.0) Albumin/Globulin Ratio 0.7 (1.0-1.7) Test 06/25/18 07:27 06/25/18 11:51 06/25/18 16:15 06/25/18 20:40 Glucose (Fingerstick) 77 mg/dL (70-99) 107 mg/dL (70-99) 135 mg/dL (70-99) 132 mg/dL (70-99) Test 06/26/18 07:22 Glucose (Fingerstick) 84 mg/dL (70-99) Laboratory Tests Test 06/25/18 11:51 06/25/18 16:15 06/25/18 20:40 06/26/18 07:22 Glucose (Fingerstick) 107 mg/dL (70-99) 135 mg/dL (70-99) 132 mg/dL (70-99) 84 mg/dL (70-99) Medications Active Scripts Medications Dose Route/Sig Max Daily Dose Days Date Category Dose Instructions Percocet 5-325 Mg Tablet (Oxycodone/Acetaminophen) 1 Each Tablet 1 Tab PO PRN Q4-6HRS PRN 06/11/18 Reported Procrit (Epoetin Jeronimo) 10,000 Unit/1 Ml Vial 10,000 Unit IJ 3X/WEEK 06/11/18 Reported Triamcinolone Acetonide 0.1% Oint (Triamcinolone Acetonide) 15 Gm Oint...g. 1 Mayra TP BID 06/11/18 Reported MIX WITH EUCERIN DIRECTED BY PHYSICIAN Bisoprolol Fumarate 5 Mg Tablet 5 Mg PO DAILY 06/11/18 Reported Zofran (Ondansetron Hcl) 4 Mg Tablet 1 Tab PO Q6HRS 06/11/18 Reported Acidophilus Capsule (L. Acidophilus/Pectin, [place]) 1 Each Capsule 1 Each PO DAILY 06/11/18 Reported Proair Hfa (Albuterol Sulfate) 8.5 Gm Hfa.aer.ad 1 Puff INH PRN Q6HRS PRN 06/11/18 Reported Protonix (Pantoprazole Sodium) 20 Mg Tablet.dr 40 Mg PO DAILY 06/11/18 Reported Impression . 1. Acute on chronic hypoxemic/ hypercapnic respiratory failure. Much improved with BIPAP 2. Acute exacerbation of chronic obstructive pulmonary disease. 3. Tobacco dependence, in remission. 4. Hypertension. 5. Chronic anemia. 6. PNEUMONIA POSSIBLE GRAM NEG 7. ANXIETY Plan . EXTUBATED 06/17/ NEEDED BIPAP 06/20 FOR WORSENING HYPERCAPNIA, improved with BIPAP , cont at night, setting reviewed. CXR WITH NO SIG CHANGE PT DOES HAVE CPAP AT HOME ORAL DIET OFF IV ABX, SPUTUM CULTURES NEG PO STEROIDS, taper DVT PROPHYLAXIS D/W pt INCREASE ACTIVITY NOT READY FOR HOME OK WITH DC TO [facility] MD Jun 26, 2018 08:35
[2018-06-26] MEDS: LIDOCAINE (700MG/PATCH) PATCH. TD SCH (09:00)
[2018-06-26] MEDS ORDERED: predniSONE 10 MG TABLET PO SCH ×2 (09:00)
[2018-06-26] MEDS: TRIAMCINOLONE ACETONIDE 0.1% TOPICAL OINTMENT 15GM TUBE. TP SCH (09:00)
[2018-06-26] MEDS: FAMOTIDINE 20 MG TABLET. PO SCH (10:31)
[2018-06-26] MEDS: ATENOLOL 50 MG TABLET. PO SCH (10:33)
[2018-06-26] MEDS: LACTOBACILLUS RHAMNOSUS GG 1 CAPSULE. PO SCH (10:33)
[2018-06-26] MEDS: DOXYCYCLINE HYCLATE 100 MG TABLET PO SCH (10:34)
[2018-06-26 11:00] VITALS: BP 142/61
--- NOTE | 2018-06-26 12:04 | SNU/HH DC ---
DISCHARGE ORDERS DISCHARGE INFORMATION: CONDITION ON DISCHARGE: Stable CODE STATUS: Code Status: Full LONGTERM: SNF STAY <30 DAYS: Yes POST DISCHARGE ORDERS: ACTIVITY ORDERS: Activity as tolerated DIET AFTER DISCHARGE: Regular FOLLOW-UP: ADDITIONAL FOLLOW-UP: Follow up with PCP within 2-3 weeks TREATMENT/EQUIPMENT ORDERS: RESPIRATORY EQUIPMENT NEEDED: Oxygen, Nebulizer, BiPAP Physical Therapy For: Evalulation/Treatment Occupational Therapy For: Evaluation/Treatment DISCHARGE MEDICATIONS: Home Meds Active Scripts Enoxaparin Sodium (ENOXAPARIN SODIUM) 40 Mg/0.4 Ml Disp.syrin, 40 MG SQ Q24H for dvt MDD 1 for 10 Days, DIS.SYR Prov:MILES MOJICA MD 06/25/18 Doxycycline Hyclate (DOXYCYCLINE HYCLATE) 100 Mg Tablet, 100 MG PO BID for pneumonia MDD 2 for 5 Days, #10 TAB Prov:MILES MOJICA MD 06/25/18 Reported Medications Fluocinonide/Emollient (FLUOCINONIDE-E 0.05% CREAM) 15 Gm Cream..g., 15 GM TP QIDPRN PRN for DRY SKIN / SCALING, EACH 06/18/18 Fluticasone/Umeclidin/Vilanter (Trelegy Ellipta 100-62.5-25) 1 Each Blst.w.dev, 1 EACH IH DAILY for COPD 06/18/18 Benzonatate (TESSALON PERLE) 100 Mg Capsule, 200 MG PO BID PRN for COUGH, CAP 06/18/18 Cholecalciferol (Vitamin D3) (D3-50) 50,000 Unit Capsule, 45947 UNIT PO WEEKLY for supplement, CAP 06/18/18 Lisinopril (LISINOPRIL) 2.5 Mg Tablet, 2.5 MG PO DAILY for FOR HYPERTENSION, # 30 TAB 0 Refills 06/18/18 Sucralfate (SUCRALFATE) 1 Gm Tablet, 1 TAB PO TID for ulcer, #90 TAB 11 Refills 06/16/18 Triamcinolone Acetonide (TRIAMCINOLONE ACETONIDE 0.1% OINT) 15 Gm Oint...g., 1 CM TP BID for WOUND CARE, #1 TUBE MIX WITH EUCERIN DIRECTED BY PHYSICIAN 06/11/18 Bisoprolol Fumarate (BISOPROLOL FUMARATE) 5 Mg Tablet, 5 MG PO DAILY for bb, TAB 06/11/18 Ondansetron Hcl (ZOFRAN) 4 Mg Tablet, 1 TAB PO Q6HRS for n/v, #20 TAB 06/11/18 L. Acidophilus/Pectin, [place] (Acidophilus Capsule) 1 Each Capsule, 1 EACH PO DAILY for probiotic, CAP 06/11/18 Albuterol Sulfate (Proair Hfa) 8.5 Gm Hfa.aer.ad, 1 PUFF INH PRN Q6HRS PRN for SHORTNESS OF BREATH, INHALER 06/11/18 Pantoprazole Sodium (PROTONIX) 20 Mg Tablet.dr, 40 MG PO DAILY for gerd, TAB 06/11/18 Discontinued Reported Medications Oxycodone/Apap 5-325 (PERCOCET 5-325 MG TABLET ) 1 Each Tablet, 1 TAB PO PRN Q4-6HRS PRN for PAIN, TAB 0 Refills 06/11/18 MILES MOJICA MD Jun 26, 2018 12:04
--- NOTE | 2018-06-26 13:36 | NUR ---
SW following pt. Orders faxed to [facility]. Pt will transport via [facility] at 1600. Pt's aware of plan and agreeable. CAROLINA VASQUEZ.
[2018-06-26] MEDS: ONDANSETRON ODT 4 MG TAB.RAPDIS. PO PRN (13:47)
[2018-06-26] MEDS: ENOXAPARIN 40 MG/0.4 ML SYRINGE. SQ SCH (13:48)
[2018-06-26 15:02] VITALS: BP 133/69
--- NOTE | 2018-06-26 16:23 | NUR ---
Discharge Note: MICHEAL ROWAN Discharge instructions and discharge home medications reviewed with Patient and a copy given. All questions have been answered and understanding verbalized. The following instructions and handouts were given: ABT Discontinued lines and drains: peripheral iv. Patient discharged to [facility] with Spouse via [facility]
[2018-06-29] MEDS ORDERED: predniSONE 20 MG TABLET PO SCH (09:00)
[2018-07-02] MEDS ORDERED: predniSONE 10 MG TABLET PO SCH (09:00)
== END 2018-06-26 17:29 | DRG 870 ==
LOC: 1 WEST ICU 14:45 → 6 SOUTH 06-18 15:26 → 1 WEST ICU 06-20 14:25 → 5 NORTH 06-21 14:50
PROVIDERS: ADMIT Internal Medicine; ATTEND Internal Medicine
PROC: 5A1955Z Respiratory Ventilation, Greater than 96 Consecutive Hours (ICD-10-PCS; 2018-06-11)
PROC: 0BH17EZ Insertion of Endotracheal Airway into Trachea, Via Natural or Artificial Opening (ICD-10-PCS; 2018-06-11)
PROC: 5A09357 Assistance with Respiratory Ventilation, Less than 24 Consecutive Hours, Continuous Positive Airway Pressure (ICD-10-PCS; principal; 2018-06-20)
PROC: 5A09357 Assistance with Respiratory Ventilation, Less than 24 Consecutive Hours, Continuous Positive Airway Pressure (ICD-10-PCS; 2018-06-21)
PROC: 5A09357 Assistance with Respiratory Ventilation, Less than 24 Consecutive Hours, Continuous Positive Airway Pressure (ICD-10-PCS; 2018-06-23)
PROC: 5A09357 Assistance with Respiratory Ventilation, Less than 24 Consecutive Hours, Continuous Positive Airway Pressure (ICD-10-PCS; 2018-06-24)
PROC: 5A09357 Assistance with Respiratory Ventilation, Less than 24 Consecutive Hours, Continuous Positive Airway Pressure (ICD-10-PCS; 2018-06-25)
PROC: 5A09357 Assistance with Respiratory Ventilation, Less than 24 Consecutive Hours, Continuous Positive Airway Pressure (ICD-10-PCS; 2018-06-26)
DX: A41.9 Sepsis, unspecified organism (principal); J96.21 Acute and chronic respiratory failure with hypoxia; J96.22 Acute and chronic respiratory failure with hypercapnia; J18.1 Lobar pneumonia, unspecified organism; J44.1 Chronic obstructive pulmonary disease with (acute) exacerbation; J44.0 Chronic obstructive pulmonary disease with (acute) lower respiratory infection; Z99.81 Dependence on supplemental oxygen; I10 Essential (primary) hypertension; F17.201 Nicotine dependence, unspecified, in remission; D64.9 Anemia, unspecified; E87.5 Hyperkalemia; F41.9 Anxiety disorder, unspecified; I48.0 Paroxysmal atrial fibrillation; L40.9 Psoriasis, unspecified; R13.10 Dysphagia, unspecified; Z87.11 Personal history of peptic ulcer disease; Z79.899 Other long term (current) drug therapy
CPT/HCPCS: 36415; 36600; 71045; 74018; 74230; 80048; 80053; 82805; 82962; 83735; 85025; 85027; 87040; 87070; 87205; 87641; 94002; 94003; 94640; 94660; 94760; G0238; J1650; J1815; J2185; J2250; J2270; J2704; J2920; J3010; J3370; J3490; J7030; J7040; J7042; J7512; J7613; J7620; Q0162; 92526; 92610; 92611; 97110; 97112; 97116; 97530; 97535

== ENCOUNTER 2019-01-27 13:16 | Inpatient (IN) | payer OTHER ==
[~2019-01-27] VITALS: Ht 182.9 cm; Wt 97.5 kg
[~2019-01-27 13:16] MED LIST: ALBU2.5V8 INH; ALPR0.254 PO; BENZ100C PO; BISO5TAB4 PO; CHOL500021 PO; DOXY100T PO; ENOX40DI3 SQ; EPOE10005 IJ; FLUO15CR2 TP; FLUT1BLS3 IH; L. A1CAP12 PO; LISI2.5T PO; ONDA4TAB7 PO; OXYC1TAB15 PO; PANT20TA2 PO; SUCR1TAB PO; TRIA15OI TP
[2019-01-27] MEDS ORDERED: IPRATRPIUM/ALBUTEROL 0.5/2.5MG 3 ML NEBU. NEB ONE (13:45)
[2019-01-27] MEDS ORDERED: IV NORMAL SALINE 1000ML BAG 1,000 ML IV ONE (13:45)
[2019-01-27] MEDS ORDERED: methylPREDNISolone SOD SUCC PF 125 MG/2 ML VIAL. IV ONE (13:45)
--- NOTE | 2019-01-27 13:45 | PHYS DOC ---
Past Medical History Past Medical History: COPD, Hypertension Additional Past Medical Histor: Psoriasis Smoking: Quit Greater Than 1 Year (history of 30 pack year history) Adult General Chief Complaint Chief Complaint: SHORTNESS OF BREATH HPI HPI Patient is a 58-year-old male, with a history of COPD, on 5-6 L of oxygen baseline, who presents to the emergency department for gradually increasing shortness of breath over the past several weeks, punctuated by significantly increasing weakness over the past 48 hours. The patient denies any new pain other than his chronic pain. He has had to increase his oxygen flow to help her shortness of breath. He has not had any cough, chest pain, headache, numbness, or focal weakness. There are no alleviating or exacerbating factors to his symptoms otherwise. Review of Systems Review of Systems Constitutional: Denies fever or chills [] Eyes: Denies change in visual acuity, redness, or eye pain [] HENT: Denies nasal congestion or sore throat [] Respiratory: No additional information not addressed in HPI [] Cardiovascular: No additional information not addressed in HPI [] GI: Denies abdominal pain, nausea, vomiting, bloody stools or diarrhea [] : Denies dysuria or hematuria [] Musculoskeletal: Denies back pain or joint pain [] Integument: Denies rash or skin lesions [] Neurologic: Denies headache, focal weakness or sensory changes [] Endocrine: Denies polyuria or polydipsia [] All other systems were reviewed and found to be within normal limits, except as documented in this note. Current Medications Current Medications Current Medications Medications (Trade) Dose Ordered Sig/Alyssa Start Time Stop Time Status Last Admin Dose Admin Albuterol/ Ipratropium (Duoneb) 3 ml 1X ONCE 01/27/19 13:45 01/27/19 13:48 DC 01/27/19 13:52 3 ML Methylprednisolone Sodium Succinate (SOLU-Medrol 125MG VIAL) 125 mg 1X ONCE 01/27/19 13:45 01/27/19 13:48 DC 01/27/19 14:05 125 MG Sodium Chloride 1,000 ml @ 75 mls/hr 1X ONCE 01/27/19 13:45 01/28/19 03:04 01/27/19 14:08 75 MLS/HR Allergies Allergies Allergies Coded Allergies Type Severity Reaction Last Updated Verified Penicillins Allergy Intermediate 06/11/18 Yes hydrocodone Allergy Intermediate 06/11/18 Yes Physical Exam Physical Exam PHYSICAL EXAM: CONSTITUTIONAL: Well developed, well nourished HEAD: normocephalic, atraumatic EENT: PERRL, EOMI. Conjunctivae normal color, sclerae non-icteric; moist mucous membranes. NECK: Supple, non-tender; no meningismus. LUNGS: There are globally diminished breath sounds in all lung patino, without any rales, wheezes, or rhonchi. HEART: Regular rate and rhythm, no murmur CHEST: No deformity; non-tender ABDOMEN: The abdomen is soft, and non-tender, no masses or bruits. EXTREM: Normal ROM; no deformity, no calf tenderness. Normal pulses palpable in all extremities. There is no pedal edema. SKIN: Scattered psoriatic plaques, no other rash; no diaphoresis NEURO: Alert; normal speech and cognition; CN's grossly intact; strength grossly intact without focal deficit. BACK: No CVA TTP. Current Patient Data Vital Signs Vital Signs Date Time Temp Pulse Resp B/P (MAP) Pulse Ox O2 Delivery O2 Flow Rate FiO2 01/27/19 13:55 94 Nasal Cannula 5.0 01/27/19 13:17 98.3 117 24 151/72 (98) 98.3 Lab Values Laboratory Tests Test 01/27/19 13:32 01/27/19 13:45 01/27/19 14:17 01/27/19 14:35 White Blood Count 9.9 x10^3/uL (4.0-11.0) Red Blood Count 4.14 x10^6/uL (4.30-5.70) L Hemoglobin 12.3 g/dL (13.0-17.5) L Hematocrit 39.2 % (39.0-53.0) Mean Corpuscular Volume 95 fL (79-100) Mean Corpuscular Hemoglobin 30 pg (25-35) Mean Corpuscular Hemoglobin Concent 31 g/dL (31-37) Red Cell Distribution Width 14.2 % (11.5-14.5) Platelet Count 203 x10^3/uL (140-400) Neutrophils (%) (Auto) 85 % (31-73) H Lymphocytes (%) (Auto) 8 % (24-48) L Monocytes (%) (Auto) 5 % (0-9) Eosinophils (%) (Auto) 2 % (0-3) Basophils (%) (Auto) 1 % (0-3) Neutrophils # (Auto) 8.4 x10^3/uL (1.8-7.7) H Lymphocytes # (Auto) 0.8 x10^3/uL (1.0-4.8) L Monocytes # (Auto) 0.5 x10^3/uL (0.0-1.1) Eosinophils # (Auto) 0.2 x10^3/uL (0.0-0.7) Basophils # (Auto) 0.1 x10^3/uL (0.0-0.2) O2 Saturation 94 % (92-99) Arterial Blood pH 7.35 (7.35-7.45) Arterial Blood pCO2 at Patient Temp 77 mmHg (35-46) *H Arterial Blood pO2 at Patient Temp 70 mmHg (65-108) Arterial Blood HCO3 42 mmol/L (21-28) H Arterial Blood Base Excess 13 mmol/L (-3-3) H FiO2 5 lpm nc Sodium Level 143 mmol/L (136-145) Potassium Level 4.4 mmol/L (3.5-5.1) Chloride Level 94 mmol/L (98-107) L Carbon Dioxide Level > 45 mmol/L (21-32) H Anion Gap (6-14) Blood Urea Nitrogen 19 mg/dL (8-26) Creatinine 0.7 mg/dL (0.7-1.3) Estimated GFR (Cockcroft-Gault) 115.4 BUN/Creatinine Ratio 27 (6-20) H Glucose Level 92 mg/dL (70-99) Calcium Level 8.8 mg/dL (8.5-10.1) Magnesium Level 1.6 mg/dL (1.8-2.4) L Total Bilirubin 0.7 mg/dL (0.2-1.0) Aspartate Amino Transferase (AST) 20 U/L (15-37) Alanine Aminotransferase (ALT) 16 U/L (16-63) Alkaline Phosphatase 46 U/L (46-116) Troponin I Quantitative 0.089 ng/mL (0.000-0.055) BP-Ssq-T-Type Natriuretic Peptide 2225 pg/mL (0-124) H Total Protein 6.8 g/dL (6.4-8.2) Albumin 3.1 g/dL (3.4-5.0) L Albumin/Globulin Ratio 0.8 (1.0-1.7) L Thyroid Stimulating Hormone (TSH) 0.747 uIU/mL (0.358-3.74) Free Thyroxine 1.34 ng/dL (0.76-1.46) Urine Collection Type Unknown Urine Color Yellow Urine Clarity Cloudy Urine pH 8.0 Urine Specific [place] 1.020 Urine Protein 30 mg/dL (NEG-TRACE) Urine Glucose (UA) Negative mg/dL (NEG) Urine Ketones (Stick) >=80 mg/dL (NEG) Urine Blood Negative (NEG) Urine Nitrite Negative (NEG) Urine Bilirubin Moderate (NEG) Urine Urobilinogen Dipstick 1.0 mg/dL (0.2 mg/dL) Urine Leukocyte Esterase Negative (NEG) Urine RBC Occ /HPF (0-2) Urine WBC Occ /HPF (0-4) Urine Amorphous Sediment Present /HPF Urine Bacteria 0 /HPF (0-FEW) Urine Hyaline Casts Few /HPF Urine Mucus Marked /LPF Laboratory Tests 01/27/19 13:32 Laboratory Tests 01/27/19 14:17 EKG EKG Normal sinus rhythm at a rate of 106 bpm, normal axis, normal intervals. There are no acute ischemic ST/T changes. Nonspecific changes are present. There is motion artifact present. Radiology/Procedures Radiology/Procedures PROCEDURE: PORTABLE CHEST 1V PORTABLE CHEST 1V 01/27/2019 1:39 PM INDICATION: Shortness of breath, weakness for one week COMPARISON: 06/20/2018 TECHNIQUE: Portable frontal view of the chest is provided. FINDINGS/ IMPRESSION: 1.The cardiomediastinal silhouette is similar in appearance. 2. There may be trace left pleural effusion with adjacent compressive atelectasis. Patchy interstitial changes are noted with subpleural predominance. Bullous airspace disease noted in the right upper lobe without definite pneumothorax. Findings are compatible with COPD. 3. No significant pulmonary vascular congestion. [] Course & Med Decision Making Course & Med Decision Making Pertinent Labs and Imaging studies reviewed. (See chart for details) []3:15 PM:The patient's condition remains stable. I spoke with the hospitalist, who accepted the patient to the hospital for further evaluation and treatment. Dragon Disclaimer Dragon Disclaimer This electronic medical record was generated, in whole or in part, using a voice recognition dictation system. Departure Departure Impression: Primary Impression: Dyspnea Additional Impressions: COPD exacerbation Weakness Disposition: 09 ADMITTED INPATIENT Admitting Physician: RENEE Condition: STABLE Referrals: PING MEDINA MD (PCP) Problem Qualifiers PERI BOCANEGRA MD Jan 27, 2019 13:45
[2019-01-27 13:48] LABS: BASO # 0.1 x10^3/uL (0.0-0.2); BASO % 1 % (0-3); EOS # 0.2 x10^3/uL (0.0-0.7); EOS % 2 % (0-3); HEMATOCRIT 39.2 % (39.0-53.0); HEMOGLOBIN 12.3 g/dL (13.0-17.5); LYMPH # 0.8 x10^3/uL (1.0-4.8); LYMPH % 8 % (24-48); MEAN CORPUSCULAR HEMOGLOBIN 30 pg (25-35); MEAN CORPUSCULAR HGB CONC 31 g/dL (31-37); MEAN CORPUSCULAR VOLUME 95 fL (79-100); MONO # 0.5 x10^3/uL (0.0-1.1); MONO % 5 % (0-9); NEUT # 8.4 x10^3/uL (1.8-7.7); NEUT % 85 % (31-73); PLATELET COUNT 203 x10^3/uL (140-400); RED BLOOD COUNT 4.14 x10^6/uL (4.30-5.70); RED CELL DISTRIBUTION WIDTH 14.2 % (11.5-14.5); WHITE BLOOD COUNT 9.9 x10^3/uL (4.0-11.0)
[2019-01-27 14:02] LABS: BASE EXCESS ABG 13 mmol/L (-3-3); HCO3 ABG 42 mmol/L (21-28); PO2 ABG 70 mmHg (65-108); SAT O2 ABG 94 % (92-99)
[2019-01-27 14:05] LABS: PCO2 ABG 77 mmHg (35-46)
--- NOTE | 2019-01-27 14:13 | RAD ---
PORTABLE CHEST 1V 01/27/2019 1:39 PM INDICATION: Shortness of breath, weakness for one week COMPARISON: 06/20/2018 TECHNIQUE: Portable frontal view of the chest is provided. FINDINGS/ IMPRESSION: 1.The cardiomediastinal silhouette is similar in appearance. 2. There may be trace left pleural effusion with adjacent compressive atelectasis. Patchy interstitial changes are noted with subpleural predominance. Bullous airspace disease noted in the right upper lobe without definite pneumothorax. Findings are compatible with COPD. 3. No significant pulmonary vascular congestion. Electronically signed by: Amy Corado MD (01/27/2019 2:10 PM) [facility]
--- NOTE | 2019-01-27 14:37 | EKG ---
[facility] [address] [place] [address] Test Date: 2019-01-27 Test Time: 13:35:14 Pat Name: MICHEAL ROWAN Department: Room: Gender: Male [employer]: : 1960 Requested By: PERI BOCANEGRA Order Number: [id number] Reading MD: Owen Gaviria MD Measurements Intervals [place] Rate: 105 P: 62 DC: 144 QRS: 81 QRSD: 92 T: 91 QT: 340 QTc: 453 Interpretive Statements SINUS TACHYCARDIA NON-SPECIFIC ST/T CHANGES Electronically Signed On 01-28-2019 18:10:10 [employer] by Owen Gaviria MD
[2019-01-27 14:43] LABS: BLOOD UREA NITROGEN 19 mg/dL (8-26); BUN/CREATININE RATIO 27 (6-20); CALCIUM 8.8 mg/dL (8.5-10.1); CHLORIDE 94 mmol/L (98-107); CREATININE 0.7 mg/dL (0.7-1.3); GFR 115.4; GLUCOSE 92 mg/dL (70-99); POTASSIUM 4.4 mmol/L (3.5-5.1); SODIUM 143 mmol/L (136-145)
[2019-01-27 14:44] LABS: CARBON DIOXIDE > 45 mmol/L (21-32)
[2019-01-27 14:45] LABS: BILIRUBIN,URINE MODERATE (NEG); CLARITY,URINE CLOUDY; COLOR,URINE YELLOW; NITRITE,URINE NEGATIVE (NEG); PROTEIN,URINE 30 mg/dL (NEG-TRACE)
[2019-01-27 14:49] LABS: BACTERIA,URINE 0 /HPF (0-FEW); HYALINE CASTS, URINE FEW /HPF; RBC,URINE OCC /HPF (0-2); WBC,URINE OCC /HPF (0-4)
[2019-01-27 14:50] LABS: AMORPHOUS SEDIMENT,UR PRESENT /HPF
[2019-01-27 14:55] LABS: FREE T4 1.34 ng/dL (0.76-1.46); THYROID STIM HORMONE (TSH) 0.747 uIU/mL (0.358-3.74)
[2019-01-27 15:01] LABS: ALBUMIN 3.1 g/dL (3.4-5.0); ALBUMIN/GLOBULIN RATIO 0.8 (1.0-1.7); ALK PHOS 46 U/L (46-116); ALT (SGPT) 16 U/L (16-63); AST (SGOT) 20 U/L (15-37); MAGNESIUM 1.6 mg/dL (1.8-2.4); TOTAL BILIRUBIN 0.7 mg/dL (0.2-1.0); TOTAL PROTEIN 6.8 g/dL (6.4-8.2)
[2019-01-27] MEDS ORDERED: FUROSEMIDE 40 MG/4 ML VIAL. IVP ONE (15:15)
[2019-01-27 16:00] VITALS: BP 149/92
[2019-01-27] MEDS ORDERED: ALBUTEROL SULFATE 2.5 MG/3 ML NEBU. NEB PRN (17:30)
--- NOTE | 2019-01-27 17:35 | PDOC ---
PULMONARY PROGRESS NOTES Vitals Vital Signs Date Time Temp Pulse Resp B/P (MAP) Pulse Ox O2 Delivery O2 Flow Rate FiO2 01/27/19 16:00 98.6 105 149/92 (111) 96 Nasal Cannula 5.0 98.6 01/27/19 15:21 20 General: Alert Lungs: Clear Cardiovascular: S1, S2 Abdomen: Soft Extremities: Other Labs Laboratory Tests Test 01/27/19 13:32 01/27/19 13:45 01/27/19 14:17 01/27/19 14:35 White Blood Count 9.9 x10^3/uL (4.0-11.0) Red Blood Count 4.14 x10^6/uL (4.30-5.70) Hemoglobin 12.3 g/dL (13.0-17.5) Hematocrit 39.2 % (39.0-53.0) Mean Corpuscular Volume 95 fL (79-100) Mean Corpuscular Hemoglobin 30 pg (25-35) Mean Corpuscular Hemoglobin Concent 31 g/dL (31-37) Red Cell Distribution Width 14.2 % (11.5-14.5) Platelet Count 203 x10^3/uL (140-400) Neutrophils (%) (Auto) 85 % (31-73) Lymphocytes (%) (Auto) 8 % (24-48) Monocytes (%) (Auto) 5 % (0-9) Eosinophils (%) (Auto) 2 % (0-3) Basophils (%) (Auto) 1 % (0-3) Neutrophils # (Auto) 8.4 x10^3/uL (1.8-7.7) Lymphocytes # (Auto) 0.8 x10^3/uL (1.0-4.8) Monocytes # (Auto) 0.5 x10^3/uL (0.0-1.1) Eosinophils # (Auto) 0.2 x10^3/uL (0.0-0.7) Basophils # (Auto) 0.1 x10^3/uL (0.0-0.2) O2 Saturation 94 % (92-99) Arterial Blood pH 7.35 (7.35-7.45) Arterial Blood pCO2 at Patient Temp 77 mmHg (35-46) Arterial Blood pO2 at Patient Temp 70 mmHg (65-108) Arterial Blood HCO3 42 mmol/L (21-28) Arterial Blood Base Excess 13 mmol/L (-3-3) FiO2 5 lpm nc Sodium Level 143 mmol/L (136-145) Potassium Level 4.4 mmol/L (3.5-5.1) Chloride Level 94 mmol/L (98-107) Carbon Dioxide Level > 45 mmol/L (21-32) Anion Gap (6-14) Blood Urea Nitrogen 19 mg/dL (8-26) Creatinine 0.7 mg/dL (0.7-1.3) Estimated GFR (Cockcroft-Gault) 115.4 BUN/Creatinine Ratio 27 (6-20) Glucose Level 92 mg/dL (70-99) Calcium Level 8.8 mg/dL (8.5-10.1) Magnesium Level 1.6 mg/dL (1.8-2.4) Total Bilirubin 0.7 mg/dL (0.2-1.0) Aspartate Amino Transf (AST/SGOT) 20 U/L (15-37) Alanine Aminotransferase (ALT/SGPT) 16 U/L (16-63) Alkaline Phosphatase 46 U/L (46-116) Troponin I Quantitative 0.089 ng/mL (0.000-0.055) JE-Bft-K-Type Natriuretic Peptide 2225 pg/mL (0-124) Total Protein 6.8 g/dL (6.4-8.2) Albumin 3.1 g/dL (3.4-5.0) Albumin/Globulin Ratio 0.8 (1.0-1.7) Thyroid Stimulating Hormone (TSH) 0.747 uIU/mL (0.358-3.74) Free Thyroxine 1.34 ng/dL (0.76-1.46) Urine Collection Type Unknown Urine Color Yellow Urine Clarity Cloudy Urine pH 8.0 Urine Specific [place] 1.020 Urine Protein 30 mg/dL (NEG-TRACE) Urine Glucose (UA) Negative mg/dL (NEG) Urine Ketones (Stick) >=80 mg/dL (NEG) Urine Blood Negative (NEG) Urine Nitrite Negative (NEG) Urine Bilirubin Moderate (NEG) Urine Urobilinogen Dipstick 1.0 mg/dL (0.2 mg/dL) Urine Leukocyte Esterase Negative (NEG) Urine RBC Occ /HPF (0-2) Urine WBC Occ /HPF (0-4) Urine Amorphous Sediment Present /HPF Urine Bacteria 0 /HPF (0-FEW) Urine Hyaline Casts Few /HPF Urine Mucus Marked /LPF Laboratory Tests Test 01/27/19 13:32 01/27/19 13:45 01/27/19 14:17 01/27/19 14:35 White Blood Count 9.9 x10^3/uL (4.0-11.0) Red Blood Count 4.14 x10^6/uL (4.30-5.70) Hemoglobin 12.3 g/dL (13.0-17.5) Hematocrit 39.2 % (39.0-53.0) Mean Corpuscular Volume 95 fL (79-100) Mean Corpuscular Hemoglobin 30 pg (25-35) Mean Corpuscular Hemoglobin Concent 31 g/dL (31-37) Red Cell Distribution Width 14.2 % (11.5-14.5) Platelet Count 203 x10^3/uL (140-400) Neutrophils (%) (Auto) 85 % (31-73) Lymphocytes (%) (Auto) 8 % (24-48) Monocytes (%) (Auto) 5 % (0-9) Eosinophils (%) (Auto) 2 % (0-3) Basophils (%) (Auto) 1 % (0-3) Neutrophils # (Auto) 8.4 x10^3/uL (1.8-7.7) Lymphocytes # (Auto) 0.8 x10^3/uL (1.0-4.8) Monocytes # (Auto) 0.5 x10^3/uL (0.0-1.1) Eosinophils # (Auto) 0.2 x10^3/uL (0.0-0.7) Basophils # (Auto) 0.1 x10^3/uL (0.0-0.2) O2 Saturation 94 % (92-99) Arterial Blood pH 7.35 (7.35-7.45) Arterial Blood pCO2 at Patient Temp 77 mmHg (35-46) Arterial Blood pO2 at Patient Temp 70 mmHg (65-108) Arterial Blood HCO3 42 mmol/L (21-28) Arterial Blood Base Excess 13 mmol/L (-3-3) FiO2 5 lpm nc Sodium Level 143 mmol/L (136-145) Potassium Level 4.4 mmol/L (3.5-5.1) Chloride Level 94 mmol/L (98-107) Carbon Dioxide Level > 45 mmol/L (21-32) Anion Gap (6-14) Blood Urea Nitrogen 19 mg/dL (8-26) Creatinine 0.7 mg/dL (0.7-1.3) Estimated GFR (Cockcroft-Gault) 115.4 BUN/Creatinine Ratio 27 (6-20) Glucose Level 92 mg/dL (70-99) Calcium Level 8.8 mg/dL (8.5-10.1) Magnesium Level 1.6 mg/dL (1.8-2.4) Total Bilirubin 0.7 mg/dL (0.2-1.0) Aspartate Amino Transf (AST/SGOT) 20 U/L (15-37) Alanine Aminotransferase (ALT/SGPT) 16 U/L (16-63) Alkaline Phosphatase 46 U/L (46-116) Troponin I Quantitative 0.089 ng/mL (0.000-0.055) SW-Ake-F-Type Natriuretic Peptide 2225 pg/mL (0-124) Total Protein 6.8 g/dL (6.4-8.2) Albumin 3.1 g/dL (3.4-5.0) Albumin/Globulin Ratio 0.8 (1.0-1.7) Thyroid Stimulating Hormone (TSH) 0.747 uIU/mL (0.358-3.74) Free Thyroxine 1.34 ng/dL (0.76-1.46) Urine Collection Type Unknown Urine Color Yellow Urine Clarity Cloudy Urine pH 8.0 Urine Specific [place] 1.020 Urine Protein 30 mg/dL (NEG-TRACE) Urine Glucose (UA) Negative mg/dL (NEG) Urine Ketones (Stick) >=80 mg/dL (NEG) Urine Blood Negative (NEG) Urine Nitrite Negative (NEG) Urine Bilirubin Moderate (NEG) Urine Urobilinogen Dipstick 1.0 mg/dL (0.2 mg/dL) Urine Leukocyte Esterase Negative (NEG) Urine RBC Occ /HPF (0-2) Urine WBC Occ /HPF (0-4) Urine Amorphous Sediment Present /HPF Urine Bacteria 0 /HPF (0-FEW) Urine Hyaline Casts Few /HPF Urine Mucus Marked /LPF Medications Active Scripts Medications Dose Route/Sig Max Daily Dose Days Date Category Dose Instructions Enoxaparin Sodium 40 Mg/0.4 Ml Disp.syrin 40 Mg SQ Q24H MDD 1 10 06/25/18 Rx Doxycycline Hyclate 100 Mg Tablet 100 Mg PO BID MDD 2 5 06/25/18 Rx Fluocinonide-E 0.05% Cream (Fluocinonide/Emollient) 15 Gm Cream..g. 15 Gm TP QIDPRN PRN 06/18/18 Reported Trelegy Ellipta 100-62.5-25 (Fluticasone/Umeclidin/Vilanter) 1 Each Blst.w.dev 1 Each IH DAILY 06/18/18 Reported Tessalon Perle (Benzonatate) 100 Mg Capsule 200 Mg PO BID PRN 06/18/18 Reported D3-50 (Cholecalciferol (Vitamin D3)) 50,000 Unit Capsule 50,000 Unit PO WEEKLY 06/18/18 Reported Lisinopril 2.5 Mg Tablet 2.5 Mg PO DAILY 06/18/18 Reported Sucralfate 1 Gm Tablet 1 Tab PO TID 06/16/18 Reported Triamcinolone Acetonide 0.1% Oint (Triamcinolone Acetonide) 15 Gm Oint...g. 1 Mayra TP BID 06/11/18 Reported MIX WITH EUCERIN DIRECTED BY PHYSICIAN Bisoprolol Fumarate 5 Mg Tablet 5 Mg PO DAILY 06/11/18 Reported Zofran (Ondansetron Hcl) 4 Mg Tablet 1 Tab PO Q6HRS 06/11/18 Reported Acidophilus Capsule (L. Acidophilus/Pectin, [place]) 1 Each Capsule 1 Each PO DAILY 06/11/18 Reported Proair Hfa (Albuterol Sulfate) 8.5 Gm Hfa.aer.ad 1 Puff INH PRN Q6HRS PRN 06/11/18 Reported Protonix (Pantoprazole Sodium) 20 Mg Tablet.dr 40 Mg PO DAILY 06/11/18 Reported Impression . FULL NOTE DICTATED SEE ORDERS THANKS A/C RESP FAILURE ZIGGY SALAZAR MD Jan 27, 2019 17:35
[2019-01-27 19:02] VITALS: BP 137/80
[2019-01-27] MEDS ORDERED: OXYC1TAB15 PO (19:46)
[2019-01-27] MEDS ORDERED: ALPR0.25 PO (19:46)
[2019-01-27] MEDS: IPRATRPIUM/ALBUTEROL 0.5/2.5MG 3 ML NEBU. NEB SCH (20:24)
[2019-01-27] MEDS: predniSONE 10 MG TABLET PO SCH (20:42)
[2019-01-27] MEDS: DOXYCYCLINE HYCLATE 100 MG in IV DEXTROSE 5% 100ML 100 ML IV SCH (20:42)
[2019-01-27] MEDS: methylPREDNISolone SOD SUCC PF 40 MG/ML VIAL. IV SCH (20:42)
[2019-01-27] MEDS: LACTOBACILLUS RHAMNOSUS GG 1 CAPSULE. PO SCH (20:42)
--- NOTE | 2019-01-27 22:37 | CONS ---
DATE OF CONSULTATION: 01/27/2019 ATTENDING PHYSICIAN: Onel Rueda MD REASON FOR CONSULTATION: The patient is seen in pulmonary consultation at the request of Dr. Rueda for increasing shortness of air, chronic hypoxemia, hypercapnic respiratory failure. Initial arterial blood gas revealed a pH of 7.35, PaCO2 of 77, pO2 of 70 on 5 liters. HISTORY OF PRESENT ILLNESS: The patient is a 58-year-old that has underlying COPD, chronic respiratory failure, emphysema, presented with increasing shortness of breath. He has been weak over the last several days and had a cough, mostly nonproductive. His primary care doctor placed him on some prednisone. The patient is not improving, he presented and the arterial blood gas revealed the above findings. PAST MEDICAL HISTORY: Chronic respiratory failure, previously intubated at [facility]. He was also intubated here back in May. He was discharged home on Trilogy ventilator. The patient states that he is not quite sure if his Trilogy is working. He has not been able to connect his oxygen supplementation to the Trilogy. He also has a history of hypertension and anemia. PAST SURGICAL HISTORY: No recent major surgeries. ALLERGIES: PENICILLIN, HYDROCODONE. SOCIAL HISTORY: He is a former smoker. REVIEW OF SYSTEMS: CONSTITUTIONAL: No fever or chills. EYES: No change in visual acuity. HENT: No nasal congestion or sore throat. PULMONARY: As indicated above. CARDIOVASCULAR: No chest pain. No pressure. GASTROINTESTINAL: No nausea, vomiting, or diarrhea. GENITOURINARY: No dysuria or frequency. MUSCULOSKELETAL: No localized muscle aches or joint pains. SKIN: No new skin rashes. NEUROLOGIC: No headaches, diplopia or blurred vision. CURRENT MEDICATIONS: List was reviewed. Home medication list was reviewed. PHYSICAL EXAMINATION: GENERAL: The patient appeared to be somewhat anxious. VITAL SIGNS: He is currently on 5 L of oxygen supplementation, saturation greater than 92%. HEENT: Eyes, the sclerae were nonicteric. NECK: Jugular venous distention was not elevated. No lymphadenopathy. CHEST: Full expansion. LUNGS: Adequate airway flow with no wheezes. CARDIOVASCULAR: Regular rate and rhythm with S1, S2, no S3. ABDOMEN: Soft, nontender, nondistended. EXTREMITIES: No clubbing, cyanosis or edema. NEUROLOGICAL: The patient was awake, alert, following commands. A detailed neuro exam was not performed. LABORATORY DATA: Reviewed. Chest x-ray showed a left pleural effusion with some compressive atelectasis. There were patchy interstitial changes, bullous emphysema. Arterial blood as indicated above. White count was normal. Hemoglobin and hematocrit were noted. Electrolytes were noted. BNP was elevated. Troponin was elevated. IMPRESSION: 1. Acute on chronic hypoxemic hypercapnic respiratory failure. 2. Acute exacerbation of chronic obstructive pulmonary disease. 3. Abnormal x-ray revealing evidence of small effusion with some atelectasis and some interstitial changes. 4. Anxiety disorder, unspecified. 5. Tobacco dependence, in remission. 6. History of previous respiratory failure, requiring intubation. 7. Chronic anemia. 8. Tobacco dependent, in remission. PLAN: 1. We will initiate BiPAP this evening. 2. Oxygen supplementation during the day. 3. Steroids. 4. Empiric antibiotics. 5. We will have his bring in his home Trilogy ventilator. 6. Obtain information from home health company regarding his Trilogy settings and difficulty regarding his Trilogy settings. I do appreciate the privilege in sharing the patient's care. ZIGGY SALAZAR MD DR: HUMBERTO/елена JOB#: [id number] / [id number]
[2019-01-27 23:47] VITALS: BP 136/74
[2019-01-28 03:14] VITALS: BP 128/86
[2019-01-28] MEDS: IPRATRPIUM/ALBUTEROL 0.5/2.5MG 3 ML NEBU. NEB SCH ×4 (07:18→20:07)
[2019-01-28 07:29] LABS: BASE EXCESS ABG 20 mmol/L (-3-3); HCO3 ABG 51 mmol/L (21-28); PO2 ABG 91 mmHg (65-108); SAT O2 ABG 96 % (92-99)
[2019-01-28 07:39] LABS: PCO2 ABG 101 mmHg (35-46)
[2019-01-28 07:40] LABS: FIO2 ABG 38
[2019-01-28 07:45] VITALS: BP 138/80
--- NOTE | 2019-01-28 09:13 | PDOC ---
PULMONARY PROGRESS NOTES Subjective PT AT TIME VERY SOA WANTS TO INCREASE HIS 02 Vitals Vital Signs Date Time Temp Pulse Resp B/P (MAP) Pulse Ox O2 Delivery O2 Flow Rate FiO2 01/28/19 07:45 98.0 114 18 138/80 (99) 93 Nasal Cannula 5.0 98.0 ROS: No Nausea, No Chest Pain, No Abdominal Pain, No Increase Cough General: Alert Lungs: Clear, Other (POOR AIRLFOW) Cardiovascular: S1, S2 Abdomen: Soft Neuro Exam: Alert Extremities: No Edema, Other Skin: Warm Labs Laboratory Tests Test 01/27/19 13:32 01/27/19 13:45 01/27/19 14:17 01/27/19 14:35 White Blood Count 9.9 x10^3/uL (4.0-11.0) Red Blood Count 4.14 x10^6/uL (4.30-5.70) Hemoglobin 12.3 g/dL (13.0-17.5) Hematocrit 39.2 % (39.0-53.0) Mean Corpuscular Volume 95 fL (79-100) Mean Corpuscular Hemoglobin 30 pg (25-35) Mean Corpuscular Hemoglobin Concent 31 g/dL (31-37) Red Cell Distribution Width 14.2 % (11.5-14.5) Platelet Count 203 x10^3/uL (140-400) Neutrophils (%) (Auto) 85 % (31-73) Lymphocytes (%) (Auto) 8 % (24-48) Monocytes (%) (Auto) 5 % (0-9) Eosinophils (%) (Auto) 2 % (0-3) Basophils (%) (Auto) 1 % (0-3) Neutrophils # (Auto) 8.4 x10^3/uL (1.8-7.7) Lymphocytes # (Auto) 0.8 x10^3/uL (1.0-4.8) Monocytes # (Auto) 0.5 x10^3/uL (0.0-1.1) Eosinophils # (Auto) 0.2 x10^3/uL (0.0-0.7) Basophils # (Auto) 0.1 x10^3/uL (0.0-0.2) O2 Saturation 94 % (92-99) Arterial Blood pH 7.35 (7.35-7.45) Arterial Blood pCO2 at Patient Temp 77 mmHg (35-46) Arterial Blood pO2 at Patient Temp 70 mmHg (65-108) Arterial Blood HCO3 42 mmol/L (21-28) Arterial Blood Base Excess 13 mmol/L (-3-3) FiO2 5 lpm nc Sodium Level 143 mmol/L (136-145) Potassium Level 4.4 mmol/L (3.5-5.1) Chloride Level 94 mmol/L (98-107) Carbon Dioxide Level > 45 mmol/L (21-32) Anion Gap (6-14) Blood Urea Nitrogen 19 mg/dL (8-26) Creatinine 0.7 mg/dL (0.7-1.3) Estimated GFR (Cockcroft-Gault) 115.4 BUN/Creatinine Ratio 27 (6-20) Glucose Level 92 mg/dL (70-99) Calcium Level 8.8 mg/dL (8.5-10.1) Magnesium Level 1.6 mg/dL (1.8-2.4) Total Bilirubin 0.7 mg/dL (0.2-1.0) Aspartate Amino Transf (AST/SGOT) 20 U/L (15-37) Alanine Aminotransferase (ALT/SGPT) 16 U/L (16-63) Alkaline Phosphatase 46 U/L (46-116) Troponin I Quantitative 0.089 ng/mL (0.000-0.055) GX-Mtu-M-Type Natriuretic Peptide 2225 pg/mL (0-124) Total Protein 6.8 g/dL (6.4-8.2) Albumin 3.1 g/dL (3.4-5.0) Albumin/Globulin Ratio 0.8 (1.0-1.7) Thyroid Stimulating Hormone (TSH) 0.747 uIU/mL (0.358-3.74) Free Thyroxine 1.34 ng/dL (0.76-1.46) Urine Collection Type Unknown Urine Color Yellow Urine Clarity Cloudy Urine pH 8.0 Urine Specific [place] 1.020 Urine Protein 30 mg/dL (NEG-TRACE) Urine Glucose (UA) Negative mg/dL (NEG) Urine Ketones (Stick) >=80 mg/dL (NEG) Urine Blood Negative (NEG) Urine Nitrite Negative (NEG) Urine Bilirubin Moderate (NEG) Urine Urobilinogen Dipstick 1.0 mg/dL (0.2 mg/dL) Urine Leukocyte Esterase Negative (NEG) Urine RBC Occ /HPF (0-2) Urine WBC Occ /HPF (0-4) Urine Amorphous Sediment Present /HPF Urine Bacteria 0 /HPF (0-FEW) Urine Hyaline Casts Few /HPF Urine Mucus Marked /LPF Test 01/27/19 17:55 01/27/19 21:15 01/28/19 07:05 Troponin I Quantitative 0.069 ng/mL (0.000-0.055) 0.070 ng/mL (0.000-0.055) O2 Saturation 96 % (92-99) Arterial Blood pH 7.33 (7.35-7.45) Arterial Blood pCO2 at Patient Temp 101 mmHg (35-46) Arterial Blood pO2 at Patient Temp 91 mmHg (65-108) Arterial Blood HCO3 51 mmol/L (21-28) Arterial Blood Base Excess 20 mmol/L (-3-3) FiO2 38 Laboratory Tests Test 01/27/19 13:32 01/27/19 13:45 01/27/19 14:17 01/27/19 14:35 White Blood Count 9.9 x10^3/uL (4.0-11.0) Red Blood Count 4.14 x10^6/uL (4.30-5.70) Hemoglobin 12.3 g/dL (13.0-17.5) Hematocrit 39.2 % (39.0-53.0) Mean Corpuscular Volume 95 fL (79-100) Mean Corpuscular Hemoglobin 30 pg (25-35) Mean Corpuscular Hemoglobin Concent 31 g/dL (31-37) Red Cell Distribution Width 14.2 % (11.5-14.5) Platelet Count 203 x10^3/uL (140-400) Neutrophils (%) (Auto) 85 % (31-73) Lymphocytes (%) (Auto) 8 % (24-48) Monocytes (%) (Auto) 5 % (0-9) Eosinophils (%) (Auto) 2 % (0-3) Basophils (%) (Auto) 1 % (0-3) Neutrophils # (Auto) 8.4 x10^3/uL (1.8-7.7) Lymphocytes # (Auto) 0.8 x10^3/uL (1.0-4.8) Monocytes # (Auto) 0.5 x10^3/uL (0.0-1.1) Eosinophils # (Auto) 0.2 x10^3/uL (0.0-0.7) Basophils # (Auto) 0.1 x10^3/uL (0.0-0.2) O2 Saturation 94 % (92-99) Arterial Blood pH 7.35 (7.35-7.45) Arterial Blood pCO2 at Patient Temp 77 mmHg (35-46) Arterial Blood pO2 at Patient Temp 70 mmHg (65-108) Arterial Blood HCO3 42 mmol/L (21-28) Arterial Blood Base Excess 13 mmol/L (-3-3) FiO2 5 lpm nc Sodium Level 143 mmol/L (136-145) Potassium Level 4.4 mmol/L (3.5-5.1) Chloride Level 94 mmol/L (98-107) Carbon Dioxide Level > 45 mmol/L (21-32) Anion Gap (6-14) Blood Urea Nitrogen 19 mg/dL (8-26) Creatinine 0.7 mg/dL (0.7-1.3) Estimated GFR (Cockcroft-Gault) 115.4 BUN/Creatinine Ratio 27 (6-20) Glucose Level 92 mg/dL (70-99) Calcium Level 8.8 mg/dL (8.5-10.1) Magnesium Level 1.6 mg/dL (1.8-2.4) Total Bilirubin 0.7 mg/dL (0.2-1.0) Aspartate Amino Transf (AST/SGOT) 20 U/L (15-37) Alanine Aminotransferase (ALT/SGPT) 16 U/L (16-63) Alkaline Phosphatase 46 U/L (46-116) Troponin I Quantitative 0.089 ng/mL (0.000-0.055) MG-Ukh-I-Type Natriuretic Peptide 2225 pg/mL (0-124) Total Protein 6.8 g/dL (6.4-8.2) Albumin 3.1 g/dL (3.4-5.0) Albumin/Globulin Ratio 0.8 (1.0-1.7) Thyroid Stimulating Hormone (TSH) 0.747 uIU/mL (0.358-3.74) Free Thyroxine 1.34 ng/dL (0.76-1.46) Urine Collection Type Unknown Urine Color Yellow Urine Clarity Cloudy Urine pH 8.0 Urine Specific [place] 1.020 Urine Protein 30 mg/dL (NEG-TRACE) Urine Glucose (UA) Negative mg/dL (NEG) Urine Ketones (Stick) >=80 mg/dL (NEG) Urine Blood Negative (NEG) Urine Nitrite Negative (NEG) Urine Bilirubin Moderate (NEG) Urine Urobilinogen Dipstick 1.0 mg/dL (0.2 mg/dL) Urine Leukocyte Esterase Negative (NEG) Urine RBC Occ /HPF (0-2) Urine WBC Occ /HPF (0-4) Urine Amorphous Sediment Present /HPF Urine Bacteria 0 /HPF (0-FEW) Urine Hyaline Casts Few /HPF Urine Mucus Marked /LPF Test 01/27/19 17:55 01/27/19 21:15 01/28/19 07:05 Troponin I Quantitative 0.069 ng/mL (0.000-0.055) 0.070 ng/mL (0.000-0.055) O2 Saturation 96 % (92-99) Arterial Blood pH 7.33 (7.35-7.45) Arterial Blood pCO2 at Patient Temp 101 mmHg (35-46) Arterial Blood pO2 at Patient Temp 91 mmHg (65-108) Arterial Blood HCO3 51 mmol/L (21-28) Arterial Blood Base Excess 20 mmol/L (-3-3) FiO2 38 Medications Active Scripts Medications Dose Route/Sig Max Daily Dose Days Date Category Dose Instructions Enoxaparin Sodium 40 Mg/0.4 Ml Disp.syrin 40 Mg SQ Q24H MDD 1 10 06/25/18 Rx Doxycycline Hyclate 100 Mg Tablet 100 Mg PO BID MDD 2 5 06/25/18 Rx Fluocinonide-E 0.05% Cream (Fluocinonide/Emollient) 15 Gm Cream..g. 15 Gm TP QIDPRN PRN 06/18/18 Reported Trelegy Ellipta 100-62.5-25 (Fluticasone/Umeclidin/Vilanter) 1 Each Blst.w.dev 1 Each IH DAILY 06/18/18 Reported Tessalon Perle (Benzonatate) 100 Mg Capsule 200 Mg PO BID PRN 06/18/18 Reported D3-50 (Cholecalciferol (Vitamin D3)) 50,000 Unit Capsule 50,000 Unit PO WEEKLY 06/18/18 Reported Lisinopril 2.5 Mg Tablet 2.5 Mg PO DAILY 06/18/18 Reported Sucralfate 1 Gm Tablet 1 Tab PO TID 06/16/18 Reported Triamcinolone Acetonide 0.1% Oint (Triamcinolone Acetonide) 15 Gm Oint...g. 1 Mayra TP BID 06/11/18 Reported MIX WITH EUCERIN DIRECTED BY PHYSICIAN Bisoprolol Fumarate 5 Mg Tablet 5 Mg PO DAILY 06/11/18 Reported Zofran (Ondansetron Hcl) 4 Mg Tablet 1 Tab PO Q6HRS 06/11/18 Reported Acidophilus Capsule (L. Acidophilus/Pectin, Burt) 1 Each Capsule 1 Each PO DAILY 06/11/18 Reported Proair Hfa (Albuterol Sulfate) 8.5 Gm Hfa.aer.ad 1 Puff INH PRN Q6HRS PRN 06/11/18 Reported Protonix (Pantoprazole Sodium) 20 Mg Tablet.dr 40 Mg PO DAILY 06/11/18 Reported Impression . IMPRESSION: 1. Acute on chronic hypoxemic hypercapnic respiratory failure. 2. Acute exacerbation of chronic obstructive pulmonary disease. 3. Abnormal x-ray revealing evidence of small effusion with some atelectasis and some interstitial changes. 4. Anxiety disorder, unspecified. 5. Tobacco dependence, in remission. 6. History of previous respiratory failure, requiring intubation. 7. Chronic anemia. 8. Tobacco dependent, in remission. Plan . ABG NOTE THIS AM WILL DECREASE 02 WITH BIPAP SPOKE WITH MY OFFICE CHECKING WITH [facility] AND SETTING AT HOME HE STATES HE HAS BEEN DEALING WITH [place] 1. We will initiate BiPAP this evening. 2. Oxygen supplementation during the day. 3. Steroids. 4. Empiric antibiotics. 5. We will have his bring in his home Trilogy ventilator. 6. Obtain information from home health company regarding his Trilogy settings and difficulty regarding his Trilogy settings. ZIGGY SALAZAR MD Jan 28, 2019 09:13
[2019-01-28] MEDS ORDERED: FLU VAX QS 2019-20 (36MOS+)/PF 0.5 ML SYRINGE. VAX IM ONE (10:00)
[2019-01-28] MEDS ORDERED: ONDANSETRON ODT 4 MG TAB.RAPDIS. PO PRN ×2 (10:30→11:30)
[2019-01-28] MEDS: methylPREDNISolone SOD SUCC PF 40 MG/ML VIAL. IV SCH ×2 (10:38→23:06)
[2019-01-28] MEDS: LACTOBACILLUS RHAMNOSUS GG 1 CAPSULE. PO SCH ×2 (10:38→21:00)
[2019-01-28] MEDS: predniSONE 10 MG TABLET PO SCH ×3 (10:38→23:17)
[2019-01-28] MEDS: FOLIC ACID 1 MG TABLET. PO SCH (10:38)
[2019-01-28] MEDS: DOXYCYCLINE HYCLATE 100 MG in IV DEXTROSE 5% 100ML 100 ML IV SCH ×2 (10:42→23:07)
--- NOTE | 2019-01-28 11:00 | PDOC1 ---
History and Physical Date of Admission Date of Admission DATE: 01/28/19 TIME: 10:59 Identification/Chief Complaint Chief Complaint SEEN IN ER WITH HYPERCAPNIC FAILURE 58-year-old male, with a history of COPD, on 5-6 L of oxygen baseline, who presents to the emergency department for gradually increasing shortness of breath over the past several weeks, punctuated by significantly increasing weakness over the past 48 hours. The patient denies any new pain other than his chronic pain. He has had to increase his oxygen flow to help her shortness of breath HAS HOME TRILOGY STILL ROSI was a heavy smoker, stopper 30 yrs ago Past Medical History Past Medical History Past Medical History Past Medical History: COPD, Hypertension Additional Past Medical Histor: Psoriasis Smoking: Quit Greater Than 1 Year (history of 30 pack year history) Bullous airspace disease noted in the right upper lobe without definite pneumothorax. Findings are compatible with COPD. FHX HTN Pulmonary: COPD Musculoskeletal: Osteoarthritis Family History Family History: Hypertension Social History Smoke: Quit ALCOHOL: none Drugs: None Current Problem List Problem List Problems Medical Problems: (1) Dyspnea Status: Acute (2) Weakness Status: Acute Current Medications Current Medications Current Medications Albuterol/ Ipratropium (Duoneb) 3 ml 1X ONCE NEB Last administered on 01/27/19at 13:52; Start 01/27/19 at 13:45; Stop 01/27/19 at 13:48; Status DC Methylprednisolone Sodium Succinate (SOLU-Medrol 125MG VIAL) 125 mg 1X ONCE IV Last administered on 01/27/19at 14:05; Start 01/27/19 at 13:45; Stop 01/27/19 at 13:48; Status DC Sodium Chloride 1,000 ml @ 75 mls/hr 1X ONCE IV Last administered on 01/27/19at 14:08; Start 01/27/19 at 13:45; Stop 01/28/19 at 03:04; Status DC Furosemide (Lasix) 40 mg 1X ONCE IVP Last administered on 01/27/19at 15:35; Start 01/27/19 at 15:15; Stop 01/27/19 at 15:16; Status DC Methylprednisolone Sodium Succinate (SOLU-Medrol 40MG VIAL) 40 mg Q12HR IV Last administered on 01/28/19at 10:38; Start 01/27/19 at 21:00 Albuterol Sulfate (Ventolin Neb Soln) 2.5 mg PRN Q2HR PRN NEB DYSPNEA; Start 01/27/19 at 17:30 Albuterol/ Ipratropium (Duoneb) 3 ml RTQID NEB Last administered on 01/28/19at 07:18; Start 01/27/19 at 20:00 Doxycycline Hyclate 100 mg/ Dextrose 100 ml @ 50 mls/hr Q12HR IV Last administered on 01/28/19at 10:42; Start 01/27/19 at 21:00 Lactobacillus Rhamnosus (Culturelle) 1 cap BID PO Last administered on 01/28/19at 10:38; Start 01/27/19 at 21:00 Folic Acid (Folic Acid) 1 mg DAILY PO Last administered on 01/28/19at 10:38; Start 01/28/19 at 09:00 Prednisone (Prednisone) 10 mg TID PO Last administered on 01/28/19at 10:38; Start 01/27/19 at 21:00 Influenza Virus Vaccine Quadrival (Afluria Quad 2019-20 (3yr Up) Syringe) 0.5 ml ONCE ONCE VAX IM Last administered on 01/28/19at 10:42; Start 01/28/19 at 10:00; Stop 01/28/19 at 10:01; Status DC Ondansetron HCl (Zofran Odt) 4 mg PRN Q4HRS PRN PO NAUSEA/VOMITING; Start 01/28/19 at 10:30 Active Scripts Active Enoxaparin Sodium 40 Mg/0.4 Ml Disp.syrin 40 Mg SQ Q24H MDD 1 10 Days Doxycycline Hyclate 100 Mg Tablet 100 Mg PO BID MDD 2 5 Days Reported Percocet 5-325 Mg Tablet (Oxycodone/Acetaminophen) 1 Each Tablet 2 Tab PO PRN Q6HRS PRN Xanax (Alprazolam) 0.25 Mg Tablet 1 Tab PO BID PRN Fluocinonide-E 0.05% Cream (Fluocinonide/Emollient) 15 Gm Cream..g. 15 Gm TP QIDPRN PRN Trelegy Ellipta 100-62.5-25 (Fluticasone/Umeclidin/Vilanter) 1 Each Blst.w.dev 1 Each IH DAILY Tessalon Perle (Benzonatate) 100 Mg Capsule 200 Mg PO BID PRN D3-50 (Cholecalciferol (Vitamin D3)) 50,000 Unit Capsule 50,000 Unit PO WEEKLY Lisinopril 2.5 Mg Tablet 2.5 Mg PO DAILY Bisoprolol Fumarate 5 Mg Tablet 5 Mg PO DAILY Zofran (Ondansetron Hcl) 4 Mg Tablet 1 Tab PO Q6HRS Proair Hfa (Albuterol Sulfate) 8.5 Gm Hfa.aer.ad 1 Puff INH PRN Q6HRS PRN Protonix (Pantoprazole Sodium) 20 Mg Tablet.dr 40 Mg PO DAILY Allergies Allergies: Coded Allergies: Penicillins (Verified Allergy, Intermediate, 06/11/18) hydrocodone (Verified Allergy, Intermediate, 06/11/18) ROS Review of System Review of Systems Review of Systems Constitutional: Denies fever or chills [] Eyes: Denies change in visual acuity, redness, or eye pain [] HENT: Denies nasal congestion or sore throat [] Respiratory: No additional information not addressed in HPI [] Cardiovascular: No additional information not addressed in HPI [] GI: Denies abdominal pain, nausea, vomiting, bloody stools or diarrhea [] : Denies dysuria or hematuria [] Musculoskeletal: Denies back pain or joint pain [] Integument: Denies rash or skin lesions [] Neurologic: Denies headache, focal weakness or sensory changes [] Endocrine: Denies polyuria or polydipsia [] 14 PT systems were reviewed and found to be within normal limits, except as documented Respiratory: YES: Cough, Shortness of breath Gastrointestinal: No Nausea, No Vomiting, No Abdominal Pain, No Diarrhea, No Constipation, No Melena, No Hematochezia, No Other Physical Exam Physical Exam Physical Exam Physical Exam PHYSICAL EXAM: CONSTITUTIONAL: Well developed, well nourished HEAD: normocephalic, atraumatic EENT: PERRL, EOMI. Conjunctivae normal color, sclerae non-icteric; moist mucous membranes. NECK: Supple, non-tender; no meningismus. LUNGS: There are globally diminished breath sounds in all lung patino, without any rales, wheezes, or rhonchi. HEART: Regular rate and rhythm, no murmur CHEST: No deformity; non-tender ABDOMEN: The abdomen is soft, and non-tender, no masses or bruits. EXTREM: Normal ROM; no deformity, no calf tenderness. Normal pulses palpable in all extremities. There is no pedal edema. SKIN: Scattered psoriatic plaques, no other rash; no diaphoresis NEURO: Alert; normal speech and cognition; CN's grossly intact; strength grossly intact without focal deficit. BACK: No CVA TTP. General: Alert, Oriented X3, Cooperative, mild distress HEENT: EOMI Heart: RRR Abdomen: Soft Rectal Exam: not examined PELVIC: Examination not indicated Extremities: No cyanosis Neuro: Normal speech, Cranial nerves 3-12 NL Psych/Mental Status: Mental status NL, Mood NL Vitals Vitals Vital Signs Date Time Temp Pulse Resp B/P (MAP) Pulse Ox O2 Delivery O2 Flow Rate FiO2 01/28/19 07:45 98.0 114 18 138/80 (99) 93 Nasal Cannula 5.0 98.0 Labs Labs Laboratory Tests Test 01/27/19 13:32 01/27/19 13:45 01/27/19 14:17 01/27/19 14:35 White Blood Count 9.9 x10^3/uL (4.0-11.0) Red Blood Count 4.14 x10^6/uL (4.30-5.70) Hemoglobin 12.3 g/dL (13.0-17.5) Hematocrit 39.2 % (39.0-53.0) Mean Corpuscular Volume 95 fL (79-100) Mean Corpuscular Hemoglobin 30 pg (25-35) Mean Corpuscular Hemoglobin Concent 31 g/dL (31-37) Red Cell Distribution Width 14.2 % (11.5-14.5) Platelet Count 203 x10^3/uL (140-400) Neutrophils (%) (Auto) 85 % (31-73) Lymphocytes (%) (Auto) 8 % (24-48) Monocytes (%) (Auto) 5 % (0-9) Eosinophils (%) (Auto) 2 % (0-3) Basophils (%) (Auto) 1 % (0-3) Neutrophils # (Auto) 8.4 x10^3/uL (1.8-7.7) Lymphocytes # (Auto) 0.8 x10^3/uL (1.0-4.8) Monocytes # (Auto) 0.5 x10^3/uL (0.0-1.1) Eosinophils # (Auto) 0.2 x10^3/uL (0.0-0.7) Basophils # (Auto) 0.1 x10^3/uL (0.0-0.2) O2 Saturation 94 % (92-99) Arterial Blood pH 7.35 (7.35-7.45) Arterial Blood pCO2 at Patient Temp 77 mmHg (35-46) Arterial Blood pO2 at Patient Temp 70 mmHg (65-108) Arterial Blood HCO3 42 mmol/L (21-28) Arterial Blood Base Excess 13 mmol/L (-3-3) FiO2 5 lpm nc Sodium Level 143 mmol/L (136-145) Potassium Level 4.4 mmol/L (3.5-5.1) Chloride Level 94 mmol/L (98-107) Carbon Dioxide Level > 45 mmol/L (21-32) Anion Gap (6-14) Blood Urea Nitrogen 19 mg/dL (8-26) Creatinine 0.7 mg/dL (0.7-1.3) Estimated GFR (Cockcroft-Gault) 115.4 BUN/Creatinine Ratio 27 (6-20) Glucose Level 92 mg/dL (70-99) Calcium Level 8.8 mg/dL (8.5-10.1) Magnesium Level 1.6 mg/dL (1.8-2.4) Total Bilirubin 0.7 mg/dL (0.2-1.0) Aspartate Amino Transf (AST/SGOT) 20 U/L (15-37) Alanine Aminotransferase (ALT/SGPT) 16 U/L (16-63) Alkaline Phosphatase 46 U/L (46-116) Troponin I Quantitative 0.089 ng/mL (0.000-0.055) FO-Mka-I-Type Natriuretic Peptide 2225 pg/mL (0-124) Total Protein 6.8 g/dL (6.4-8.2) Albumin 3.1 g/dL (3.4-5.0) Albumin/Globulin Ratio 0.8 (1.0-1.7) Thyroid Stimulating Hormone (TSH) 0.747 uIU/mL (0.358-3.74) Free Thyroxine 1.34 ng/dL (0.76-1.46) Urine Collection Type Unknown Urine Color Yellow Urine Clarity Cloudy Urine pH 8.0 Urine Specific [place] 1.020 Urine Protein 30 mg/dL (NEG-TRACE) Urine Glucose (UA) Negative mg/dL (NEG) Urine Ketones (Stick) >=80 mg/dL (NEG) Urine Blood Negative (NEG) Urine Nitrite Negative (NEG) Urine Bilirubin Moderate (NEG) Urine Urobilinogen Dipstick 1.0 mg/dL (0.2 mg/dL) Urine Leukocyte Esterase Negative (NEG) Urine RBC Occ /HPF (0-2) Urine WBC Occ /HPF (0-4) Urine Amorphous Sediment Present /HPF Urine Bacteria 0 /HPF (0-FEW) Urine Hyaline Casts Few /HPF Urine Mucus Marked /LPF Test 01/27/19 17:55 01/27/19 21:15 01/28/19 07:05 Troponin I Quantitative 0.069 ng/mL (0.000-0.055) 0.070 ng/mL (0.000-0.055) O2 Saturation 96 % (92-99) Arterial Blood pH 7.33 (7.35-7.45) Arterial Blood pCO2 at Patient Temp 101 mmHg (35-46) Arterial Blood pO2 at Patient Temp 91 mmHg (65-108) Arterial Blood HCO3 51 mmol/L (21-28) Arterial Blood Base Excess 20 mmol/L (-3-3) FiO2 38 Laboratory Tests Test 01/27/19 13:32 01/27/19 13:45 01/27/19 14:17 01/27/19 14:35 White Blood Count 9.9 x10^3/uL (4.0-11.0) Red Blood Count 4.14 x10^6/uL (4.30-5.70) Hemoglobin 12.3 g/dL (13.0-17.5) Hematocrit 39.2 % (39.0-53.0) Mean Corpuscular Volume 95 fL (79-100) Mean Corpuscular Hemoglobin 30 pg (25-35) Mean Corpuscular Hemoglobin Concent 31 g/dL (31-37) Red Cell Distribution Width 14.2 % (11.5-14.5) Platelet Count 203 x10^3/uL (140-400) Neutrophils (%) (Auto) 85 % (31-73) Lymphocytes (%) (Auto) 8 % (24-48) Monocytes (%) (Auto) 5 % (0-9) Eosinophils (%) (Auto) 2 % (0-3) Basophils (%) (Auto) 1 % (0-3) Neutrophils # (Auto) 8.4 x10^3/uL (1.8-7.7) Lymphocytes # (Auto) 0.8 x10^3/uL (1.0-4.8) Monocytes # (Auto) 0.5 x10^3/uL (0.0-1.1) Eosinophils # (Auto) 0.2 x10^3/uL (0.0-0.7) Basophils # (Auto) 0.1 x10^3/uL (0.0-0.2) O2 Saturation 94 % (92-99) Arterial Blood pH 7.35 (7.35-7.45) Arterial Blood pCO2 at Patient Temp 77 mmHg (35-46) Arterial Blood pO2 at Patient Temp 70 mmHg (65-108) Arterial Blood HCO3 42 mmol/L (21-28) Arterial Blood Base Excess 13 mmol/L (-3-3) FiO2 5 lpm nc Sodium Level 143 mmol/L (136-145) Potassium Level 4.4 mmol/L (3.5-5.1) Chloride Level 94 mmol/L (98-107) Carbon Dioxide Level > 45 mmol/L (21-32) Anion Gap (6-14) Blood Urea Nitrogen 19 mg/dL (8-26) Creatinine 0.7 mg/dL (0.7-1.3) Estimated GFR (Cockcroft-Gault) 115.4 BUN/Creatinine Ratio 27 (6-20) Glucose Level 92 mg/dL (70-99) Calcium Level 8.8 mg/dL (8.5-10.1) Magnesium Level 1.6 mg/dL (1.8-2.4) Total Bilirubin 0.7 mg/dL (0.2-1.0) Aspartate Amino Transf (AST/SGOT) 20 U/L (15-37) Alanine Aminotransferase (ALT/SGPT) 16 U/L (16-63) Alkaline Phosphatase 46 U/L (46-116) Troponin I Quantitative 0.089 ng/mL (0.000-0.055) BJ-Ntv-U-Type Natriuretic Peptide 2225 pg/mL (0-124) Total Protein 6.8 g/dL (6.4-8.2) Albumin 3.1 g/dL (3.4-5.0) Albumin/Globulin Ratio 0.8 (1.0-1.7) Thyroid Stimulating Hormone (TSH) 0.747 uIU/mL (0.358-3.74) Free Thyroxine 1.34 ng/dL (0.76-1.46) Urine Collection Type Unknown Urine Color Yellow Urine Clarity Cloudy Urine pH 8.0 Urine Specific [place] 1.020 Urine Protein 30 mg/dL (NEG-TRACE) Urine Glucose (UA) Negative mg/dL (NEG) Urine Ketones (Stick) >=80 mg/dL (NEG) Urine Blood Negative (NEG) Urine Nitrite Negative (NEG) Urine Bilirubin Moderate (NEG) Urine Urobilinogen Dipstick 1.0 mg/dL (0.2 mg/dL) Urine Leukocyte Esterase Negative (NEG) Urine RBC Occ /HPF (0-2) Urine WBC Occ /HPF (0-4) Urine Amorphous Sediment Present /HPF Urine Bacteria 0 /HPF (0-FEW) Urine Hyaline Casts Few /HPF Urine Mucus Marked /LPF Test 01/27/19 17:55 01/27/19 21:15 01/28/19 07:05 Troponin I Quantitative 0.069 ng/mL (0.000-0.055) 0.070 ng/mL (0.000-0.055) O2 Saturation 96 % (92-99) Arterial Blood pH 7.33 (7.35-7.45) Arterial Blood pCO2 at Patient Temp 101 mmHg (35-46) Arterial Blood pO2 at Patient Temp 91 mmHg (65-108) Arterial Blood HCO3 51 mmol/L (21-28) Arterial Blood Base Excess 20 mmol/L (-3-3) FiO2 38 Images Images REASON: SOB, Weakness X1 week. hx of COPD PROCEDURE: PORTABLE CHEST 1V PORTABLE CHEST 1V 01/27/2019 1:39 PM INDICATION: Shortness of breath, weakness for one week COMPARISON: 06/20/2018 TECHNIQUE: Portable frontal view of the chest is provided. FINDINGS/ IMPRESSION: 1.The cardiomediastinal silhouette is similar in appearance. 2. There may be trace left pleural effusion with adjacent compressive atelectasis. Patchy interstitial changes are noted with subpleural predominance. Bullous airspace disease noted in the right upper lobe without definite pneumothorax. Findings are compatible with COPD. 3. No significant pulmonary vascular congestion. Electronically signed by: Aldair Corado MD (01/27/2019 2:10 PM) [facility] DICTATED and SIGNED BY: ALDAIR CORADO MD DATE: 01/27/19 1410 VTE Prophylaxis Ordered VTE Prophylaxis Devices: Yes VTE Pharmacological Prophylaxi: Yes Assessment/Plan Assessment/Plan IMPRESSION 1. [id number] hypoxic hypercapnic respiratory failure, improved. trace left pleural effusion with adjacent compressive atelectasis. Patchy interstitial changes are noted with subpleural predominance. Bullous airspace disease noted in the right upper lobe without definite pneumothorax. 2. Acute exacerbation of chronic obstructive pulmonary disease. 3. Bullous airspace disease noted in the right upper lobe without definite pneumothorax. Findings are compatible with COPD. 4. Hypertension. 5. Chronic anemia. 6. Anxiety. 7. Marked muscle wasting, weakness and deconditioning. 8. TOBACCO ABUSE DISORDER IN REMISSION ADMIT 1. BiPAP SUPPORT 2. Oxygen supplementation during the day. 3. Steroids.IV, taper 4. Empiric antibiotics. 5. home Trilogy ventilator. tamara 6. dvt prophylaxis 55 MIN PT EXAM, chart review, > 50% of time spent with exam, chart review, pt chart review pt care coordination DEBBIE DE LA TORRE MD Jan 28, 2019 11:00
[2019-01-28] MEDS ORDERED: ALPRAZolam 0.25 MG TABLET PO PRN (11:15)
[2019-01-28] MEDS ORDERED: BENZONATATE 100 MG CAPSULE. PO PRN (11:15)
[2019-01-28] MEDS ORDERED: ALBUTEROL SULFATE 2.5 MG/3 ML NEBU. INH PRN (11:15)
[2019-01-28 11:53] VITALS: BP 126/72
[2019-01-28] MEDS: LISINOPRIL 5 MG TABLET. PO SCH (12:31)
[2019-01-28] MEDS: PANTOPRAZOLE 40 MG TABLET.DR. PO SCH (12:31)
[2019-01-28] MEDS: ENOXAPARIN 40 MG/0.4 ML SYRINGE. SQ SCH (12:32)
[2019-01-28] MEDS: ATENOLOL 50 MG TABLET. PO SCH (12:32)
[2019-01-28] MEDS ORDERED: FLUOCINONIDE 0.05% TOPICAL CREAM 15 GM TUBE. TP PRN (14:00)
[2019-01-28 15:55] VITALS: BP 116/71
--- NOTE | 2019-01-28 16:07 | PDOC2 ---
GEETA MILNER MEDICATION TECH 01/28/19 1607: CARDIAC CONSULT DATE OF CONSULT Date of Consult DATE: 01/28/19 TIME: 16:00 REASON FOR CONSULT Reason for Consult: Elevated troponin REFERRING PHYSICIAN Referring Physician: Dr. Russell SOURCE Source: Chart review, Patient HISTORY OF PRESENT ILLNESS HISTORY OF PRESENT ILLNESS This is a 58 yo male who presented secondary to shortness of breath. Has a history of COPD. Is O2 dependent. Has been more short of breath the last couple of weeks. Has progressively worsened. Has difficulty catching his breath the day of arrival. Troponin noted to be mildly elevated, which prompted this consult. Denies any chest pain, dizziness, diaphoresis, palpitations, or nausea/vomiting. PAST MEDICAL HISTORY Pulmonary: COPD GI: Peptic Ulcer disease Psych: Anxiety PAST SURGICAL HISTORY Past Surgical History: Other (left arm surgery ) FAMILY HISTORY Family History: Adopted SOCIAL HISTORY Smoke: Quit (over a year ago. 30 pack year history ) ALCOHOL: none Drugs: None Lives: with Family CURRENT MEDICATIONS CURRENT MEDICATIONS Current Medications Medications (Trade) Dose Ordered Sig/Alyssa Route PRN Reason Start Time Stop Time Status Last Admin Dose Admin Methylprednisolone Sodium Succinate (SOLU-Medrol 40MG VIAL) 40 mg Q12HR IV 01/27/19 21:00 01/28/19 10:38 Albuterol/ Ipratropium (Duoneb) 3 ml RTQID NEB 01/27/19 20:00 01/28/19 15:07 Doxycycline Hyclate 100 mg/ Dextrose 100 ml @ 50 mls/hr Q12HR IV 01/27/19 21:00 01/28/19 10:42 Lactobacillus Rhamnosus (Culturelle) 1 cap BID PO 01/27/19 21:00 01/28/19 10:38 Folic Acid (Folic Acid) 1 mg DAILY PO 01/28/19 09:00 01/28/19 10:38 Prednisone (Prednisone) 10 mg TID PO 01/27/19 21:00 01/28/19 10:38 Influenza Virus Vaccine Quadrival (Afluria Quad 2019- (3yr Up) Syringe) 0.5 ml ONCE ONCE VAX IM 01/28/19 10:00 01/28/19 10:01 DC 01/28/19 10:42 Enoxaparin Sodium (Lovenox 40mg Syringe) 40 mg Q24H SQ 01/28/19 12:00 01/28/19 12:32 Atenolol (Tenormin) 50 mg DAILY PO 01/28/19 12:00 01/28/19 12:32 Lisinopril (Prinivil) 2.5 mg DAILY PO 01/28/19 12:00 01/28/19 12:31 Pantoprazole Sodium (Protonix) 40 mg DAILYAC PO 01/28/19 11:30 01/28/19 12:31 ALLERGIES ALLERGIES: Coded Allergies: Penicillins (Verified Allergy, Intermediate, 06/11/18) hydrocodone (Verified Allergy, Intermediate, 06/11/18) ROS Review of System 14 point ROS conducted with pertinent positives noted above in HPI PHYSICAL EXAM General: Alert, Oriented X3, Cooperative, No acute distress HEENT: Atraumatic, Mucous membr. moist/pink Lungs: Clear to auscultation, Other (diminished throughout ) Heart: Regular rate (SR, ST) Abdomen: Soft, No tenderness Extremities: No edema, Normal pulses Skin: No breakdown Neuro: Normal speech, Sensation intact Psych/Mental Status: Mental status NL, Mood NL MUSCULOSKELETAL: Osteoarthritic changes both hands VITALS/I&O VITALS/I&O: Vital Signs Date Time Temp Pulse Resp B/P (MAP) Pulse Ox O2 Delivery O2 Flow Rate FiO2 01/28/19 15:55 98.4 98 18 116/71 (86) 93 Nasal Cannula 3.0 98.4 I & O 01/27/19 01/27/19 01/28/19 15:00 23:00 07:00 Intake Total 200 ml 300 ml Output Total 750 ml 450 ml Balance -550 ml -150 ml LABS Lab: Laboratory Tests Test 01/27/19 17:55 01/27/19 21:15 01/28/19 07:05 Troponin I Quantitative 0.069 ng/mL (0.000-0.055) 0.070 ng/mL (0.000-0.055) O2 Saturation 96 % (92-99) Arterial Blood pH 7.33 (7.35-7.45) L Arterial Blood pCO2 at Patient Temp 101 mmHg (35-46) *H Arterial Blood pO2 at Patient Temp 91 mmHg (65-108) Arterial Blood HCO3 51 mmol/L (21-28) H Arterial Blood Base Excess 20 mmol/L (-3-3) H FiO2 38 ASSESSMENT/PLAN ASSESSMENT/PLAN 1. Acute on chronic hypoxic, hypercapnic respiratory failure secondary to AE COPD 2. Mild troponin elevation; highest 0.089. Most probably type II, demand ischemia secondary to above. CP free. 3. Sinus tach, reactive. Recommendations Lung optimization Echo to asses LV systolic function Lipids ASA Supportive care Consider outpatient ischemic eval LISA TOWNSEND MD 01/28/19 2352: CARDIAC CONSULT ASSESSMENT/PLAN ASSESSMENT/PLAN Pt. seen and examined. Agree with above HAND RIGGER note. 58 y.o significant COPD hx, he is usually sedentary. No chest pain. I discussed conservative versus aggressive mgmt for his elevated troponin Will obtain echo and decide further after discussion with his . GEETA MILNER APRN Jan 28, 2019 16:07 LISA TOWNSEND MD Jan 28, 2019 23:52
--- NOTE | 2019-01-28 16:20 | NUR ---
SW following pt for dc planning. Chart reviewed and discussed with RN. Pt lives at home with Spouse. PT/OT ordered, Pt declined PT but had worked with OT (no notes at this time). Cardiology following pt. SW will be available as needed.
[2019-01-28] MEDS: BUDESONIDE 0.5 MG/2 ML NEBU. NEB SCH (20:06)
[2019-01-28 20:10] VITALS: BP 107/66
[2019-01-28 23:15] VITALS: BP 123/66
[2019-01-29 03:55] VITALS: BP 113/73
[2019-01-29 07:00] LABS: CHOLESTEROL/HDL RATIO 2.6
[2019-01-29 07:28] VITALS: BP 126/73
[2019-01-29] MEDS: IPRATRPIUM/ALBUTEROL 0.5/2.5MG 3 ML NEBU. NEB SCH ×4 (07:59→19:15)
[2019-01-29] MEDS: BUDESONIDE 0.5 MG/2 ML NEBU. NEB SCH ×2 (07:59→19:15)
[2019-01-29 08:08] LABS: BASE EXCESS ABG 17 mmol/L (-3-3); HCO3 ABG 42 mmol/L (21-28); PCO2 ABG 49 mmHg (35-46); PO2 ABG 103 mmHg (65-108); SAT O2 ABG 98 % (92-99)
[2019-01-29 08:10] LABS: FIO2 ABG 32
[2019-01-29] MEDS: ASPIRIN ENTERIC COATED 81 MG TABLET.DR. PO SCH (08:42)
[2019-01-29] MEDS: PANTOPRAZOLE 40 MG TABLET.DR. PO SCH (08:42)
[2019-01-29] MEDS: ATENOLOL 50 MG TABLET. PO SCH (08:43)
[2019-01-29] MEDS: LACTOBACILLUS RHAMNOSUS GG 1 CAPSULE. PO SCH ×2 (08:44→21:00)
[2019-01-29] MEDS: LISINOPRIL 5 MG TABLET. PO SCH (08:44)
[2019-01-29] MEDS: predniSONE 10 MG TABLET PO SCH ×3 (08:44→21:00)
[2019-01-29] MEDS: methylPREDNISolone SOD SUCC PF 40 MG/ML VIAL. IV SCH (08:44)
[2019-01-29] MEDS: FOLIC ACID 1 MG TABLET. PO SCH (08:44)
[2019-01-29] MEDS: DOXYCYCLINE HYCLATE 100 MG in IV DEXTROSE 5% 100ML 100 ML IV SCH ×2 (08:46→21:00)
--- NOTE | 2019-01-29 09:11 | PDOC ---
PROGRESS NOTES History of Present Illness History of Present Illness VTE Prophylaxis Ordered VTE Prophylaxis Devices: Yes VTE Pharmacological Prophylaxi: Yes Assessment/Plan Assessment/Plan IMPRESSION 1. Xyeot-fl-[id number] hypoxic hypercapnic respiratory failure, improved. trace left pleural effusion with adjacent compressive atelectasis. Patchy interstitial changes are noted with subpleural predominance. Bullous airspace disease noted in the right upper lobe without definite pneumothorax. 2. Acute exacerbation of chronic obstructive pulmonary disease. 3. Bullous airspace disease noted in the right upper lobe without definite pneumothorax. Findings are compatible with COPD. 4. Hypertension. 5. Chronic anemia. 6. Anxiety. 7. Marked muscle wasting, weakness and deconditioning. 8. TOBACCO ABUSE DISORDER IN REMISSION 9. resp alkalosis ADMIT 1. BiPAP SUPPORT 2. Oxygen supplementation during the day. 3. Steroids.IV, taper 4. Empiric antibiotics. 5. home Trilogy ventilator. tamara 6. dvt prophylaxis 7, reset bipap settings 8. ECHO 28 MIN PT EXAM, chart review, > 50% of time spent with exam, chart review, pt chart review pt care coordination Vitals Vitals Vital Signs Date Time Temp Pulse Resp B/P (MAP) Pulse Ox O2 Delivery O2 Flow Rate FiO2 01/29/19 08:44 89 126/73 01/29/19 08:25 90 Nasal Cannula 3.0 01/29/19 07:28 98.3 18 98.3 Physical Exam General: Alert, Oriented X3, Cooperative, No acute distress Heart: Regular rate (SR, ST), Normal S1 Lungs: Clear, Other (POOR AIRLFOW) Abdomen: Normal bowel sounds, Soft, No tenderness Extremities: No cyanosis, No edema, Normal pulses Skin: No breakdown Labs LABS PORTABLE CHEST 1V 01/27/2019 1:39 PM INDICATION: Shortness of breath, weakness for one week COMPARISON: 06/20/2018 TECHNIQUE: Portable frontal view of the chest is provided. FINDINGS/ IMPRESSION: 1.The cardiomediastinal silhouette is similar in appearance. 2. There may be trace left pleural effusion with adjacent compressive atelectasis. Patchy interstitial changes are noted with subpleural predominance. Bullous airspace disease noted in the right upper lobe without definite pneumothorax. Findings are compatible with COPD. 3. No significant pulmonary vascular congestion. Electronically signed by: Aldair Corado MD (01/27/2019 2:10 PM) [facility] DICTATED and SIGNED BY: ALDAIR CORADO MD DATE: 01/27/19 141 Laboratory Tests Test 01/29/19 03:00 01/29/19 08:00 Triglycerides Level 74 mg/dL (0-150) Cholesterol Level 160 mg/dL (0-200) LDL Cholesterol, Calculated 84 mg/dL (0-100) VLDL Cholesterol, Calculated 15 mg/dL (0-40) Non-HDL Cholesterol Calculated 99 mg/dL (0-129) HDL Cholesterol 61 mg/dL (40-60) Cholesterol/HDL Ratio 2.6 O2 Saturation 98 % (92-99) Arterial Blood pH 7.55 (7.35-7.45) Arterial Blood pCO2 at Patient Temp 49 mmHg (35-46) Arterial Blood pO2 at Patient Temp 103 mmHg (65-108) Arterial Blood HCO3 42 mmol/L (21-28) Arterial Blood Base Excess 17 mmol/L (-3-3) FiO2 32 Assessment and Plan Assessmemt and Plan Problems Medical Problems: (1) Dyspnea Status: Acute (2) Weakness Status: Acute Comment Review of Relevant I have reviewed the following items kishore (where applicable) has been applied. Labs Laboratory Tests Test 01/27/19 13:32 01/27/19 13:45 01/27/19 14:17 01/27/19 14:35 White Blood Count 9.9 x10^3/uL (4.0-11.0) Red Blood Count 4.14 x10^6/uL (4.30-5.70) Hemoglobin 12.3 g/dL (13.0-17.5) Hematocrit 39.2 % (39.0-53.0) Mean Corpuscular Volume 95 fL (79-100) Mean Corpuscular Hemoglobin 30 pg (25-35) Mean Corpuscular Hemoglobin Concent 31 g/dL (31-37) Red Cell Distribution Width 14.2 % (11.5-14.5) Platelet Count 203 x10^3/uL (140-400) Neutrophils (%) (Auto) 85 % (31-73) Lymphocytes (%) (Auto) 8 % (24-48) Monocytes (%) (Auto) 5 % (0-9) Eosinophils (%) (Auto) 2 % (0-3) Basophils (%) (Auto) 1 % (0-3) Neutrophils # (Auto) 8.4 x10^3/uL (1.8-7.7) Lymphocytes # (Auto) 0.8 x10^3/uL (1.0-4.8) Monocytes # (Auto) 0.5 x10^3/uL (0.0-1.1) Eosinophils # (Auto) 0.2 x10^3/uL (0.0-0.7) Basophils # (Auto) 0.1 x10^3/uL (0.0-0.2) O2 Saturation 94 % (92-99) Arterial Blood pH 7.35 (7.35-7.45) Arterial Blood pCO2 at Patient Temp 77 mmHg (35-46) Arterial Blood pO2 at Patient Temp 70 mmHg (65-108) Arterial Blood HCO3 42 mmol/L (21-28) Arterial Blood Base Excess 13 mmol/L (-3-3) FiO2 5 lpm nc Sodium Level 143 mmol/L (136-145) Potassium Level 4.4 mmol/L (3.5-5.1) Chloride Level 94 mmol/L (98-107) Carbon Dioxide Level > 45 mmol/L (21-32) Anion Gap (6-14) Blood Urea Nitrogen 19 mg/dL (8-26) Creatinine 0.7 mg/dL (0.7-1.3) Estimated GFR (Cockcroft-Gault) 115.4 BUN/Creatinine Ratio 27 (6-20) Glucose Level 92 mg/dL (70-99) Calcium Level 8.8 mg/dL (8.5-10.1) Magnesium Level 1.6 mg/dL (1.8-2.4) Total Bilirubin 0.7 mg/dL (0.2-1.0) Aspartate Amino Transf (AST/SGOT) 20 U/L (15-37) Alanine Aminotransferase (ALT/SGPT) 16 U/L (16-63) Alkaline Phosphatase 46 U/L (46-116) Troponin I Quantitative 0.089 ng/mL (0.000-0.055) BT-Mhv-G-Type Natriuretic Peptide 2225 pg/mL (0-124) Total Protein 6.8 g/dL (6.4-8.2) Albumin 3.1 g/dL (3.4-5.0) Albumin/Globulin Ratio 0.8 (1.0-1.7) Thyroid Stimulating Hormone (TSH) 0.747 uIU/mL (0.358-3.74) Free Thyroxine 1.34 ng/dL (0.76-1.46) Urine Collection Type Unknown Urine Color Yellow Urine Clarity Cloudy Urine pH 8.0 Urine Specific [place] 1.020 Urine Protein 30 mg/dL (NEG-TRACE) Urine Glucose (UA) Negative mg/dL (NEG) Urine Ketones (Stick) >=80 mg/dL (NEG) Urine Blood Negative (NEG) Urine Nitrite Negative (NEG) Urine Bilirubin Moderate (NEG) Urine Urobilinogen Dipstick 1.0 mg/dL (0.2 mg/dL) Urine Leukocyte Esterase Negative (NEG) Urine RBC Occ /HPF (0-2) Urine WBC Occ /HPF (0-4) Urine Amorphous Sediment Present /HPF Urine Bacteria 0 /HPF (0-FEW) Urine Hyaline Casts Few /HPF Urine Mucus Marked /LPF Test 01/27/19 17:55 01/27/19 21:15 01/28/19 07:05 01/29/19 03:00 Troponin I Quantitative 0.069 ng/mL (0.000-0.055) 0.070 ng/mL (0.000-0.055) O2 Saturation 96 % (92-99) Arterial Blood pH 7.33 (7.35-7.45) Arterial Blood pCO2 at Patient Temp 101 mmHg (35-46) Arterial Blood pO2 at Patient Temp 91 mmHg (65-108) Arterial Blood HCO3 51 mmol/L (21-28) Arterial Blood Base Excess 20 mmol/L (-3-3) FiO2 38 Triglycerides Level 74 mg/dL (0-150) Cholesterol Level 160 mg/dL (0-200) LDL Cholesterol, Calculated 84 mg/dL (0-100) VLDL Cholesterol, Calculated 15 mg/dL (0-40) Non-HDL Cholesterol Calculated 99 mg/dL (0-129) HDL Cholesterol 61 mg/dL (40-60) Cholesterol/HDL Ratio 2.6 Test 01/29/19 08:00 O2 Saturation 98 % (92-99) Arterial Blood pH 7.55 (7.35-7.45) Arterial Blood pCO2 at Patient Temp 49 mmHg (35-46) Arterial Blood pO2 at Patient Temp 103 mmHg (65-108) Arterial Blood HCO3 42 mmol/L (21-28) Arterial Blood Base Excess 17 mmol/L (-3-3) FiO2 32 Laboratory Tests Test 01/29/19 03:00 01/29/19 08:00 Triglycerides Level 74 mg/dL (0-150) Cholesterol Level 160 mg/dL (0-200) LDL Cholesterol, Calculated 84 mg/dL (0-100) VLDL Cholesterol, Calculated 15 mg/dL (0-40) Non-HDL Cholesterol Calculated 99 mg/dL (0-129) HDL Cholesterol 61 mg/dL (40-60) Cholesterol/HDL Ratio 2.6 O2 Saturation 98 % (92-99) Arterial Blood pH 7.55 (7.35-7.45) Arterial Blood pCO2 at Patient Temp 49 mmHg (35-46) Arterial Blood pO2 at Patient Temp 103 mmHg (65-108) Arterial Blood HCO3 42 mmol/L (21-28) Arterial Blood Base Excess 17 mmol/L (-3-3) FiO2 32 Medications Current Medications Albuterol/ Ipratropium (Duoneb) 3 ml 1X ONCE NEB Last administered on 01/27/19at 13:52; Start 01/27/19 at 13:45; Stop 01/27/19 at 13:48; Status DC Methylprednisolone Sodium Succinate (SOLU-Medrol 125MG VIAL) 125 mg 1X ONCE IV Last administered on 01/27/19at 14:05; Start 01/27/19 at 13:45; Stop 01/27/19 at 13:48; Status DC Sodium Chloride 1,000 ml @ 75 mls/hr 1X ONCE IV Last administered on 01/27/19at 14:08; Start 01/27/19 at 13:45; Stop 01/28/19 at 03:04; Status DC Furosemide (Lasix) 40 mg 1X ONCE IVP Last administered on 01/27/19at 15:35; Start 01/27/19 at 15:15; Stop 01/27/19 at 15:16; Status DC Methylprednisolone Sodium Succinate (SOLU-Medrol 40MG VIAL) 40 mg Q12HR IV Last administered on 01/29/19at 08:44; Start 01/27/19 at 21:00 Albuterol Sulfate (Ventolin Neb Soln) 2.5 mg PRN Q2HR PRN NEB DYSPNEA; Start 01/27/19 at 17:30 Albuterol/ Ipratropium (Duoneb) 3 ml RTQID NEB Last administered on 01/29/19 07:59; Start 01/27/19 at 20:00 Doxycycline Hyclate 100 mg/ Dextrose 100 ml @ 50 mls/hr Q12HR IV Last administered on 01/29/19at 08:46; Start 01/27/19 at 21:00 Lactobacillus Rhamnosus (Culturelle) 1 cap BID PO Last administered on 01/29/19 08:44; Start 01/27/19 at 21:00 Folic Acid (Folic Acid) 1 mg DAILY PO Last administered on 01/29/19 08:44; Start 01/28/19 at 09:00 Prednisone (Prednisone) 10 mg TID PO Last administered on 01/29/19 08:44; S tart 01/27/19 at 21:00 Influenza Virus Vaccine Quadrival (Afluria Quad 2019-20 (3yr Up) Syringe) 0.5 ml ONCE ONCE VAX IM Last administered on 01/28/19at 10:42; Start 01/28/19 at 10:00; Stop 01/28/19 at 10:01; Status DC Ondansetron HCl (Zofran Odt) 4 mg PRN Q4HRS PRN PO NAUSEA/VOMITING Last administered on 01/29/19at 06:31; Start 01/28/19 at 10:30 Albuterol Sulfate (Ventolin Neb Soln) 2.5 mg PRN Q6HRS PRN INH SHORTNESS OF BREATH; Start 01/28/19 at 11:15; Stop 01/28/19 at 11:18; Status DC Alprazolam (Xanax) 0.25 mg BID PRN PO ANXIETY; Start 01/28/19 at 11:15 Benzonatate (Tessalon Perle) 200 mg BID PRN PO COUGH; Start 01/28/19 at 11:15 Enoxaparin Sodium (Lovenox 40mg Syringe) 40 mg Q24H SQ Last administered on 01/28/19at 12:32; Start 01/28/19 at 12:00 Atenolol (Tenormin) 50 mg DAILY PO Last administered on 01/29/19at 08:43; Start 01/28/19 at 12:00 Ergocalciferol (Vitamin D2) 50,000 unit WEEKLY PO ; Start 02/04/19 at 09:00 Fluocinonide (Lidex) 1 ivette PRN TID PRN TP ITCHY SKIN; Start 01/28/19 at 14:00 Budesonide (Pulmicort) 0.5 mg RTBID NEB Last administered on 01/29/19at 07:59; Start 01/28/19 at 20:00 Lisinopril (Prinivil) 2.5 mg DAILY PO Last administered on 01/29/19at 08:44; Start 01/28/19 at 12:00 Ondansetron HCl (Zofran Odt) 4 mg PRN Q8HRS PRN PO NAUSEA/VOMITING; Start 01/28/19 at 11:30; Status UNV Pantoprazole Sodium (Protonix) 40 mg DAILYAC PO Last administered on 01/29/19at 08:42; Start 01/28/19 at 11:30 Aspirin (Ecotrin) 81 mg DAILYWBKFT PO Last administered on 01/29/19at 08:42; Start 01/29/19 at 08:00 Active Scripts Active Enoxaparin Sodium 40 Mg/0.4 Ml Disp.syrin 40 Mg SQ Q24H MDD 1 10 Days Doxycycline Hyclate 100 Mg Tablet 100 Mg PO BID MDD 2 5 Days Reported Percocet 5-325 Mg Tablet (Oxycodone/Acetaminophen) 1 Each Tablet 2 Tab PO PRN Q6HRS PRN Xanax (Alprazolam) 0.25 Mg Tablet 1 Tab PO BID PRN Fluocinonide-E 0.05% Cream (Fluocinonide/Emollient) 15 Gm Cream..g. 15 Gm TP QIDPRN PRN Trelegy Ellipta 100-62.5-25 (Fluticasone/Umeclidin/Vilanter) 1 Each Blst.w.dev 1 Each IH DAILY Tessalon Perle (Benzonatate) 100 Mg Capsule 200 Mg PO BID PRN D3-50 (Cholecalciferol (Vitamin D3)) 50,000 Unit Capsule 50,000 Unit PO WEEKLY Lisinopril 2.5 Mg Tablet 2.5 Mg PO DAILY Bisoprolol Fumarate 5 Mg Tablet 5 Mg PO DAILY Zofran (Ondansetron Hcl) 4 Mg Tablet 1 Tab PO Q6HRS Proair Hfa (Albuterol Sulfate) 8.5 Gm Hfa.aer.ad 1 Puff INH PRN Q6HRS PRN Protonix (Pantoprazole Sodium) 20 Mg Tablet.dr 40 Mg PO DAILY Vitals/I & O Vital Sign - Last 24 Hours 01/28/19 01/28/19 01/28/19 01/28/19 11:08 11:53 12:31 12:32 Temp 98.3 98.3 Pulse 112 112 112 Resp 18 B/P (MAP) 126/72 (90) 126/72 126/72 Pulse Ox 90 90 O2 Delivery Nasal Cannula Nasal Cannula O2 Flow Rate 3.0 3.0 01/28/19 01/28/19 01/28/19 01/28/19 15:10 15:55 20:07 20:10 Temp 98.4 98.3 98.4 98.3 Pulse 98 91 Resp 18 16 B/P (MAP) 116/71 (86) 107/66 (80) Pulse Ox 90 93 94 94 O2 Delivery Nasal Cannula Nasal Cannula Nasal Cannula Nasal Cannula O2 Flow Rate 3.0 3.0 3.0 3.0 01/28/19 01/28/19 01/28/19 01/28/19 20:10 20:14 22:19 22:37 Pulse Ox 94 94 94 O2 Delivery Nasal Cannula Nasal Cannula BiPAP/CPAP O2 Flow Rate 3.0 3.0 01/28/19 01/29/19 01/29/19 01/29/19 23:15 00:11 03:08 03:55 Pulse 89 90 Resp 20 15 B/P (MAP) 123/66 (85) 113/73 (86) Pulse Ox 95 90 91 O2 Delivery BiPAP/CPAP BiPAP/CPAP BiPAP/CPAP BiPAP/CPAP 01/29/19 01/29/19 01/29/19 01/29/19 04:20 07:28 08:00 08:24 Temp 98.3 98.3 Pulse 89 Resp 18 B/P (MAP) 126/73 (90) Pulse Ox 93 90 O2 Delivery BiPAP/CPAP Nasal Cannula Nasal Cannula Nasal Cannula O2 Flow Rate 3.0 3.0 3.0 01/29/19 01/29/19 01/29/19 08:25 08:43 08:44 Pulse 89 89 B/P (MAP) 126/73 126/73 Pulse Ox 90 O2 Delivery Nasal Cannula O2 Flow Rate 3.0 Intake and Output 01/28/19 01/28/19 01/29/19 15:00 23:00 07:00 Intake Total 400 ml 200 ml 110 ml Output Total 200 ml 700 ml Balance 400 ml 0 ml -590 ml DEBBIE DE LA TORRE MD Jan 29, 2019 09:11
--- NOTE | 2019-01-29 10:40 | PDOC ---
PULMONARY PROGRESS NOTES Subjective SLOWLY IMPROVING Vitals Vital Signs Date Time Temp Pulse Resp B/P (MAP) Pulse Ox O2 Delivery O2 Flow Rate FiO2 01/29/19 08:44 89 126/73 01/29/19 08:25 90 Nasal Cannula 3.0 01/29/19 07:28 98.3 18 98.3 ROS: No Nausea, No Chest Pain, No Abdominal Pain, No Increase Cough General: Alert Lungs: Clear Cardiovascular: S1, S2 Abdomen: Soft Neuro Exam: Alert Extremities: No Edema, Other Skin: Warm Labs Laboratory Tests Test 01/27/19 13:32 01/27/19 13:45 01/27/19 14:17 01/27/19 14:35 White Blood Count 9.9 x10^3/uL (4.0-11.0) Red Blood Count 4.14 x10^6/uL (4.30-5.70) Hemoglobin 12.3 g/dL (13.0-17.5) Hematocrit 39.2 % (39.0-53.0) Mean Corpuscular Volume 95 fL (79-100) Mean Corpuscular Hemoglobin 30 pg (25-35) Mean Corpuscular Hemoglobin Concent 31 g/dL (31-37) Red Cell Distribution Width 14.2 % (11.5-14.5) Platelet Count 203 x10^3/uL (140-400) Neutrophils (%) (Auto) 85 % (31-73) Lymphocytes (%) (Auto) 8 % (24-48) Monocytes (%) (Auto) 5 % (0-9) Eosinophils (%) (Auto) 2 % (0-3) Basophils (%) (Auto) 1 % (0-3) Neutrophils # (Auto) 8.4 x10^3/uL (1.8-7.7) Lymphocytes # (Auto) 0.8 x10^3/uL (1.0-4.8) Monocytes # (Auto) 0.5 x10^3/uL (0.0-1.1) Eosinophils # (Auto) 0.2 x10^3/uL (0.0-0.7) Basophils # (Auto) 0.1 x10^3/uL (0.0-0.2) O2 Saturation 94 % (92-99) Arterial Blood pH 7.35 (7.35-7.45) Arterial Blood pCO2 at Patient Temp 77 mmHg (35-46) Arterial Blood pO2 at Patient Temp 70 mmHg (65-108) Arterial Blood HCO3 42 mmol/L (21-28) Arterial Blood Base Excess 13 mmol/L (-3-3) FiO2 5 lpm nc Sodium Level 143 mmol/L (136-145) Potassium Level 4.4 mmol/L (3.5-5.1) Chloride Level 94 mmol/L (98-107) Carbon Dioxide Level > 45 mmol/L (21-32) Anion Gap (6-14) Blood Urea Nitrogen 19 mg/dL (8-26) Creatinine 0.7 mg/dL (0.7-1.3) Estimated GFR (Cockcroft-Gault) 115.4 BUN/Creatinine Ratio 27 (6-20) Glucose Level 92 mg/dL (70-99) Calcium Level 8.8 mg/dL (8.5-10.1) Magnesium Level 1.6 mg/dL (1.8-2.4) Total Bilirubin 0.7 mg/dL (0.2-1.0) Aspartate Amino Transf (AST/SGOT) 20 U/L (15-37) Alanine Aminotransferase (ALT/SGPT) 16 U/L (16-63) Alkaline Phosphatase 46 U/L (46-116) Troponin I Quantitative 0.089 ng/mL (0.000-0.055) TB-Wqp-[id number]-Type Natriuretic Peptide 2225 pg/mL (0-124) Total Protein 6.8 g/dL (6.4-8.2) Albumin 3.1 g/dL (3.4-5.0) Albumin/Globulin Ratio 0.8 (1.0-1.7) Thyroid Stimulating Hormone (TSH) 0.747 uIU/mL (0.358-3.74) Free Thyroxine 1.34 ng/dL (0.76-1.46) Urine Collection Type Unknown Urine Color Yellow Urine Clarity Cloudy Urine pH 8.0 Urine Specific [place] 1.020 Urine Protein 30 mg/dL (NEG-TRACE) Urine Glucose (UA) Negative mg/dL (NEG) Urine Ketones (Stick) >=80 mg/dL (NEG) Urine Blood Negative (NEG) Urine Nitrite Negative (NEG) Urine Bilirubin Moderate (NEG) Urine Urobilinogen Dipstick 1.0 mg/dL (0.2 mg/dL) Urine Leukocyte Esterase Negative (NEG) Urine RBC Occ /HPF (0-2) Urine WBC Occ /HPF (0-4) Urine Amorphous Sediment Present /HPF Urine Bacteria 0 /HPF (0-FEW) Urine Hyaline Casts Few /HPF Urine Mucus Marked /LPF Test 01/27/19 17:55 01/27/19 21:15 01/28/19 07:05 01/29/19 03:00 Troponin I Quantitative 0.069 ng/mL (0.000-0.055) 0.070 ng/mL (0.000-0.055) O2 Saturation 96 % (92-99) Arterial Blood pH 7.33 (7.35-7.45) Arterial Blood pCO2 at Patient Temp 101 mmHg (35-46) Arterial Blood pO2 at Patient Temp 91 mmHg (65-108) Arterial Blood HCO3 51 mmol/L (21-28) Arterial Blood Base Excess 20 mmol/L (-3-3) FiO2 38 Triglycerides Level 74 mg/dL (0-150) Cholesterol Level 160 mg/dL (0-200) LDL Cholesterol, Calculated 84 mg/dL (0-100) VLDL Cholesterol, Calculated 15 mg/dL (0-40) Non-HDL Cholesterol Calculated 99 mg/dL (0-129) HDL Cholesterol 61 mg/dL (40-60) Cholesterol/HDL Ratio 2.6 Test 01/29/19 08:00 O2 Saturation 98 % (92-99) Arterial Blood pH 7.55 (7.35-7.45) Arterial Blood pCO2 at Patient Temp 49 mmHg (35-46) Arterial Blood pO2 at Patient Temp 103 mmHg (65-108) Arterial Blood HCO3 42 mmol/L (21-28) Arterial Blood Base Excess 17 mmol/L (-3-3) FiO2 32 Laboratory Tests Test 01/29/19 03:00 01/29/19 08:00 Triglycerides Level 74 mg/dL (0-150) Cholesterol Level 160 mg/dL (0-200) LDL Cholesterol, Calculated 84 mg/dL (0-100) VLDL Cholesterol, Calculated 15 mg/dL (0-40) Non-HDL Cholesterol Calculated 99 mg/dL (0-129) HDL Cholesterol 61 mg/dL (40-60) Cholesterol/HDL Ratio 2.6 O2 Saturation 98 % (92-99) Arterial Blood pH 7.55 (7.35-7.45) Arterial Blood pCO2 at Patient Temp 49 mmHg (35-46) Arterial Blood pO2 at Patient Temp 103 mmHg (65-108) Arterial Blood HCO3 42 mmol/L (21-28) Arterial Blood Base Excess 17 mmol/L (-3-3) FiO2 32 Medications Active Scripts Medications Dose Route/Sig Max Daily Dose Days Date Category Dose Instructions Enoxaparin Sodium 40 Mg/0.4 Ml Disp.syrin 40 Mg SQ Q24H MDD 1 10 06/25/18 Rx Doxycycline Hyclate 100 Mg Tablet 100 Mg PO BID MDD 2 5 06/25/18 Rx Fluocinonide-E 0.05% Cream (Fluocinonide/Emollient) 15 Gm Cream..g. 15 Gm TP QIDPRN PRN 06/18/18 Reported Trelegy Ellipta 100-62.5-25 (Fluticasone/Umeclidin/Vilanter) 1 Each Blst.w.dev 1 Each IH DAILY 06/18/18 Reported Tessalon Perle (Benzonatate) 100 Mg Capsule 200 Mg PO BID PRN 06/18/18 Reported D3-50 (Cholecalciferol (Vitamin D3)) 50,000 Unit Capsule 50,000 Unit PO WEEKLY 06/18/18 Reported Lisinopril 2.5 Mg Tablet 2.5 Mg PO DAILY 06/18/18 Reported Sucralfate 1 Gm Tablet 1 Tab PO TID 06/16/18 Reported Triamcinolone Acetonide 0.1% Oint (Triamcinolone Acetonide) 15 Gm Oint...g. 1 Mayra TP BID 06/11/18 Reported MIX WITH EUCERIN DIRECTED BY PHYSICIAN Bisoprolol Fumarate 5 Mg Tablet 5 Mg PO DAILY 06/11/18 Reported Zofran (Ondansetron Hcl) 4 Mg Tablet 1 Tab PO Q6HRS 06/11/18 Reported Acidophilus Capsule (L. Acidophilus/Pectin, [place]) 1 Each Capsule 1 Each PO DAILY 06/11/18 Reported Proair Hfa (Albuterol Sulfate) 8.5 Gm Hfa.aer.ad 1 Puff INH PRN Q6HRS PRN 06/11/18 Reported Protonix (Pantoprazole Sodium) 20 Mg Tablet.dr 40 Mg PO DAILY 06/11/18 Reported Impression . IMPRESSION: 1. Acute on chronic hypoxemic /hypercapnic respiratory failure. 2. Acute exacerbation of chronic obstructive pulmonary disease. 3. Abnormal x-ray revealing evidence of small effusion with some atelectasis and some interstitial changes. 4. Anxiety disorder, unspecified. 5. Tobacco dependence, in remission. 6. History of previous respiratory failure, requiring intubation. 7. Chronic anemia. 8. Tobacco dependent, in remission. Plan . ABG NOTE THIS AM / OVER CORRECTION / WILL REDUCE BIPAP SETTINGS CHECKING WITH DME AND HOME BIPAP SETTING HE STATES HE HAS BEEN DEALING WITH [facility] 1. PRN BiPAP qhs 2. Oxygen supplementation during the day. 3. Steroids. dc IV, already on PO 4. Empiric antibiotics. 5. We will have his bring in his home Trilogy ventilator. 6. Obtain information from home health company regarding his Trilogy settings and difficulty regarding his Trilogy settings. d/w GLENROY BROOKS MD Jan 29, 2019 10:39
--- NOTE | 2019-01-29 11:09 | PDOC ---
LAI SHOEMAKER THREAD SEPARATOR 01/29/19 1109: CARDIO Progress Notes Date and Time Date of Service 01/29/2019 Time of Evaluation 1100 Subjective Subjective: No Chest Pain, No Palpitations, Other (SOA better) Vitals Vitals Vital Signs Date Time Temp Pulse Resp B/P (MAP) Pulse Ox O2 Delivery O2 Flow Rate FiO2 01/29/19 08:44 89 126/73 01/29/19 08:25 90 Nasal Cannula 3.0 01/29/19 07:28 98.3 18 98.3 Weight Weight [ ] Input and Output Intake and Output Intake and Output 01/29/19 07:00 Intake Total 710 ml Output Total 900 ml Balance -190 ml Intake Oral 710 ml Output Urine Total 900 ml Laboratory Labs Laboratory Tests Test 01/29/19 03:00 01/29/19 08:00 Triglycerides Level 74 mg/dL (0-150) Cholesterol Level 160 mg/dL (0-200) LDL Cholesterol, Calculated 84 mg/dL (0-100) VLDL Cholesterol, Calculated 15 mg/dL (0-40) Non-HDL Cholesterol Calculated 99 mg/dL (0-129) HDL Cholesterol 61 mg/dL (40-60) Cholesterol/HDL Ratio 2.6 O2 Saturation 98 % (92-99) Arterial Blood pH 7.55 (7.35-7.45) Arterial Blood pCO2 at Patient Temp 49 mmHg (35-46) Arterial Blood pO2 at Patient Temp 103 mmHg (65-108) Arterial Blood HCO3 42 mmol/L (21-28) Arterial Blood Base Excess 17 mmol/L (-3-3) FiO2 32 Physical Exam HEENT: Neck Supple W Full Motion Chest: Symmetric LUNGS: Other (diminished throughout) Heart: S1S2, RRR (SR) Abdomen: Soft N/T Extremities: No Calf Tenderness Neurology: alert, oriented, follow commands Assessment Assessment 1. Acute on chronic hypoxic, hypercapnic respiratory failure secondary to AECOPD 2. Mild troponin elevation; highest 0.089. demand mediated with above. 3. Reactive sinus tach: improved Recommendations 1. TTE pending 2. Follow pulmonary input 3. Continue BP regimen 4. May follow up in office. LISA TOWNSEND MD 01/29/19 1700: CARDIO Progress Notes Plan Plan Patient seen and examined. Agree with above nurse practitioner note. No acute events overnight. Echocardiogram consistent with COPD and right heart strain without any obvious wall motion abnormalities of the left side. In light of this will continue treatment of his pulmonary issues and consider outpatient ischemic evaluation based on symptoms after his pulmonary issues have been stabilized. LAI SHOEMAKER APRN Jan 29, 2019 11:09 LISA TOWNSEND MD Jan 29, 2019 17:00
[2019-01-29 11:45] VITALS: BP 123/68
[2019-01-29] MEDS: ENOXAPARIN 40 MG/0.4 ML SYRINGE. SQ SCH (11:48)
[2019-01-29 13:27] LABS: BASO % 0 % (0-3); EOS % 0 % (0-3); HEMATOCRIT 37.9 % (39.0-53.0); HEMOGLOBIN 11.7 g/dL (13.0-17.5); LYMPH # 0.2 x10^3/uL (1.0-4.8); LYMPH % 2 % (24-48); MEAN CORPUSCULAR HEMOGLOBIN 30 pg (25-35); MEAN CORPUSCULAR HGB CONC 31 g/dL (31-37); MEAN CORPUSCULAR VOLUME 96 fL (79-100); MONO # 0.2 x10^3/uL (0.0-1.1); MONO % 3 % (0-9); NEUT # 8.6 x10^3/uL (1.8-7.7); NEUT % 95 % (31-73); PLATELET COUNT 243 x10^3/uL (140-400); RED BLOOD COUNT 3.97 x10^6/uL (4.30-5.70); RED CELL DISTRIBUTION WIDTH 14.9 % (11.5-14.5); WHITE BLOOD COUNT 9.1 x10^3/uL (4.0-11.0)
[2019-01-29 13:43] LABS: ALBUMIN 3.1 g/dL (3.4-5.0); ALBUMIN/GLOBULIN RATIO 0.9 (1.0-1.7); ALK PHOS 44 U/L (46-116); ALT (SGPT) 17 U/L (16-63); ANION GAP 2 (6-14); AST (SGOT) 19 U/L (15-37); BLOOD UREA NITROGEN 27 mg/dL (8-26); BUN/CREATININE RATIO 39 (6-20); CALCIUM 9.1 mg/dL (8.5-10.1); CARBON DIOXIDE > 45 mmol/L (21-32); CHLORIDE 95 mmol/L (98-107); CREATININE 0.7 mg/dL (0.7-1.3); GFR 115.4; GLUCOSE 135 mg/dL (70-99); SODIUM 142 mmol/L (136-145); TOTAL BILIRUBIN 0.4 mg/dL (0.2-1.0); TOTAL PROTEIN 6.7 g/dL (6.4-8.2)
--- NOTE | 2019-01-29 14:39 | NUR ---
SW following pt. SW spoke with pt's , Adela, phone: [phone] and pt has 02 through [employer] and trilogy through [facility] [employer]. Discussed about SNU and options. Pt's reported pt had been at [facility] before and would like him to go there. SW discussed [facility] is currently is not taking [facility] unless pt has out of network benefits. [facility]'s agreeable with [facility] if [facility] can accept as pt has been denied there before. Referral faxed to [facility]. Acceptance pending. SW will continue to follow.
[2019-01-29 14:59] LABS: % LYMPHS 2 % (24-48); % MONOS 2 % (0-10); % SEGS 96 % (35-66)
[2019-01-29 15:02] VITALS: BP 96/67
[2019-01-29 15:02] LABS: ANISOCYTOSIS SLIGHT; PLT ESTIMATE ADEQUATE (ADEQUATE); POLYCHROMASIA SLIGHT
[2019-01-29 19:24] VITALS: BP 101/66
[2019-01-29 23:10] VITALS: BP 104/65
[2019-01-30 03:12] VITALS: BP 91/61
[2019-01-30] MEDS: BUDESONIDE 0.5 MG/2 ML NEBU. NEB SCH ×2 (07:13→19:44)
[2019-01-30] MEDS: IPRATRPIUM/ALBUTEROL 0.5/2.5MG 3 ML NEBU. NEB SCH ×4 (07:13→19:44)
[2019-01-30 07:51] VITALS: BP 122/72
[2019-01-30] MEDS: ONDANSETRON ODT 4 MG TAB.RAPDIS. PO PRN (07:54)
[2019-01-30] MEDS: PANTOPRAZOLE 40 MG TABLET.DR. PO SCH (07:54)
[2019-01-30] MEDS: ASPIRIN ENTERIC COATED 81 MG TABLET.DR. PO SCH (08:00)
--- NOTE | 2019-01-30 08:53 | PDOC ---
PROGRESS NOTES Chief Complaint Chief Complaint A/P: Udrus-[id number]-[id number] hypoxic hypercapnic respiratory failure, improved. trace left pleural effusion with adjacent compressive atelectasis. Patchy interstitial changes are noted with subpleural predominance. Bullous airspace disease noted in the right upper lobe without definite pneumothorax. Acute exacerbation of chronic obstructive pulmonary disease. Bullous airspace disease noted in the right upper lobe without definite pneumothorax. Findings are compatible with COPD. Hypertension. Chronic anemia. Anxiety. Marked muscle wasting, weakness and deconditioning. TOBACCO ABUSE DISORDER IN REMISSION Resp alkalosis Plan: BiPAP SUPPORT Oxygen supplementation during the day. Steroids.IV, taper Empiric antibiotics. home Trilogy ventilator. tamara dvt prophylaxis reset bipap settings ECHO 28 MIN PT EXAM, chart review, > 50% of time spent with exam, chart review, pt chart review pt care coordination History of Present Illness History of Present Illness 58 yo male who presented secondary to shortness of breath. Has a history of COPD. Is O2 dependent. Has been more short of breath the last couple of weeks. Has progressively worsened. Has difficulty catching his breath the day of arrival. Troponin noted to be mildly elevated, . Denies any chest pain, dizziness, diaphoresis, palpitations, or nausea/vomiting. He still feels pressure in his chest, is asking if he can have his home inhalers, incruse, and breo. More comfortable with his BIPAP settings. Vitals Vitals Vital Signs Date Time Temp Pulse Resp B/P (MAP) Pulse Ox O2 Delivery O2 Flow Rate FiO2 01/30/19 08:01 Nasal Cannula 3.0 01/30/19 07:51 98.2 92 20 122/72 (89) 98 98.2 Physical Exam General: Alert, Oriented X3, Cooperative, No acute distress Heart: Regular rate (SR, ST), Normal S1 Lungs: Clear Abdomen: Normal bowel sounds, Soft, No tenderness Extremities: No cyanosis, No edema, Normal pulses Skin: No breakdown Assessment and Plan Assessmemt and Plan Problems Medical Problems: (1) Dyspnea Status: Acute (2) Weakness Status: Acute Comment Review of Relevant I have reviewed the following items kishore (where applicable) has been applied. Labs Laboratory Tests Test 01/29/19 03:00 01/29/19 08:00 White Blood Count 9.1 x10^3/uL (4.0-11.0) Red Blood Count 3.97 x10^6/uL (4.30-5.70) Hemoglobin 11.7 g/dL (13.0-17.5) Hematocrit 37.9 % (39.0-53.0) Mean Corpuscular Volume 96 fL (79-100) Mean Corpuscular Hemoglobin 30 pg (25-35) Mean Corpuscular Hemoglobin Concent 31 g/dL (31-37) Red Cell Distribution Width 14.9 % (11.5-14.5) Platelet Count 243 x10^3/uL (140-400) Neutrophils (%) (Auto) 95 % (31-73) Lymphocytes (%) (Auto) 2 % (24-48) Monocytes (%) (Auto) 3 % (0-9) Eosinophils (%) (Auto) 0 % (0-3) Basophils (%) (Auto) 0 % (0-3) Neutrophils # (Auto) 8.6 x10^3/uL (1.8-7.7) Lymphocytes # (Auto) 0.2 x10^3/uL (1.0-4.8) Monocytes # (Auto) 0.2 x10^3/uL (0.0-1.1) Eosinophils # (Auto) 0.0 x10^3/uL (0.0-0.7) Basophils # (Auto) 0.0 x10^3/uL (0.0-0.2) Segmented Neutrophils % 96 % (35-66) Lymphocytes % 2 % (24-48) Monocytes % 2 % (0-10) Platelet Estimate Adequate (ADEQUATE) Polychromasia Slight Anisocytosis Slight Sodium Level 142 mmol/L (136-145) Potassium Level 4.0 mmol/L (3.5-5.1) Chloride Level 95 mmol/L (98-107) Carbon Dioxide Level > 45 mmol/L (21-32) Anion Gap 2 (6-14) Blood Urea Nitrogen 27 mg/dL (8-26) Creatinine 0.7 mg/dL (0.7-1.3) Estimated GFR (Cockcroft-Gault) 115.4 BUN/Creatinine Ratio 39 (6-20) Glucose Level 135 mg/dL (70-99) Calcium Level 9.1 mg/dL (8.5-10.1) Total Bilirubin 0.4 mg/dL (0.2-1.0) Aspartate Amino Transf (AST/SGOT) 19 U/L (15-37) Alanine Aminotransferase (ALT/SGPT) 17 U/L (16-63) Alkaline Phosphatase 44 U/L (46-116) Troponin I Quantitative 0.065 ng/mL (0.000-0.055) Total Protein 6.7 g/dL (6.4-8.2) Albumin 3.1 g/dL (3.4-5.0) Albumin/Globulin Ratio 0.9 (1.0-1.7) Triglycerides Level 74 mg/dL (0-150) Cholesterol Level 160 mg/dL (0-200) LDL Cholesterol, Calculated 84 mg/dL (0-100) VLDL Cholesterol, Calculated 15 mg/dL (0-40) Non-HDL Cholesterol Calculated 99 mg/dL (0-129) HDL Cholesterol 61 mg/dL (40-60) Cholesterol/HDL Ratio 2.6 O2 Saturation 98 % (92-99) Arterial Blood pH 7.55 (7.35-7.45) Arterial Blood pCO2 at Patient Temp 49 mmHg (35-46) Arterial Blood pO2 at Patient Temp 103 mmHg (65-108) Arterial Blood HCO3 42 mmol/L (21-28) Arterial Blood Base Excess 17 mmol/L (-3-3) FiO2 32 Medications Current Medications Albuterol/ Ipratropium (Duoneb) 3 ml 1X ONCE NEB Last administered on 01/27/19at 13:52; Start 01/27/19 at 13:45; Stop 01/27/19 at 13:48; Status DC Methylprednisolone Sodium Succinate (SOLU-Medrol 125MG VIAL) 125 mg 1X ONCE IV Last administered on 01/27/19at 14:05; Start 01/27/19 at 13:45; Stop 01/27/19 at 13:48; Status DC Sodium Chloride 1,000 ml @ 75 mls/hr 1X ONCE IV Last administered on 01/27/19at 14:08; Start 01/27/19 at 13:45; Stop 01/28/19 at 03:04; Status DC Furosemide (Lasix) 40 mg 1X ONCE IVP Last administered on 01/27/19at 15:35; Start 01/27/19 at 15:15; Stop 01/27/19 at 15:16; Status DC Methylprednisolone Sodium Succinate (SOLU-Medrol 40MG VIAL) 40 mg Q12HR IV Last administered on 01/29/19 08:44; Start 01/27/19 at 21:00; Stop 01/29/19 at 10:37; Status DC Albuterol Sulfate (Ventolin Neb Soln) 2.5 mg PRN Q2HR PRN NEB DYSPNEA; Start 01/27/19 at 17:30 Albuterol/ Ipratropium (Duoneb) 3 ml RTQID NEB Last administered on 01/30/19at 07:13; Start 01/27/19 at 20:00 Doxycycline Hyclate 100 mg/ Dextrose 100 ml @ 50 mls/hr Q12HR IV Last administered on 01/29/19 08:46; Start 01/27/19 at 21:00 Lactobacillus Rhamnosus (Culturelle) 1 cap BID PO Last administered on 01/29/19 08:44; Start 01/27/19 at 21:00 Folic Acid (Folic Acid) 1 mg DAILY PO Last administered on 01/29/19at 08:44; Start 01/28/19 at 09:00 Prednisone (Prednisone) 10 mg TID PO Last administered on 01/29/19at 13:54; Start 01/27/19 at 21:00 Influenza Virus Vaccine Quadrival (Afluria Quad 2019-20 (3yr Up) Syringe) 0.5 ml ONCE ONCE VAX IM Last administered on 01/28/19at 10:42; Start 01/28/19 at 10:00; Stop 01/28/19 at 10:01; Status DC Ondansetron HCl (Zofran Odt) 4 mg PRN Q4HRS PRN PO NAUSEA/VOMITING Last administered on 01/29/19at 06:31; Start 01/28/19 at 10:30; Stop 01/30/19 at 07:26; Status DC Albuterol Sulfate (Ventolin Neb Soln) 2.5 mg PRN Q6HRS PRN INH SHORTNESS OF BREATH; Start 01/28/19 at 11:15; Stop 01/28/19 at 11:18; Status DC Alprazolam (Xanax) 0.25 mg BID PRN PO ANXIETY; Start 01/28/19 at 11:15 Benzonatate (Tessalon Perle) 200 mg BID PRN PO COUGH; Start 01/28/19 at 11:15 Enoxaparin Sodium (Lovenox 40mg Syringe) 40 mg Q24H SQ Last administered on 03/31/18 11:48; Start 01/28/19 at 12:00 Atenolol (Tenormin) 50 mg DAILY PO Last administered on 01/29/19at 08:43; Start 01/28/19 at 12:00 Ergocalciferol (Vitamin D2) 50,000 unit WEEKLY PO ; Start 02/04/19 at 09:00 Fluocinonide (Lidex) 1 ivette PRN TID PRN TP ITCHY SKIN; Start 01/28/19 at 14:00 Budesonide (Pulmicort) 0.5 mg RTBID NEB Last administered on 01/30/19 07:13; Start 01/28/19 at 20:00 Lisinopril (Prinivil) 2.5 mg DAILY PO Last administered on 01/29/19at 08:44; Start 01/28/19 at 12:00 Ondansetron HCl (Zofran Odt) 4 mg PRN Q8HRS PRN PO NAUSEA/VOMITING; Start 01/28/19 at 11:30; Status UNV Pantoprazole Sodium (Protonix) 40 mg DAILYAC PO Last administered on 01/30/19 07:54; Start 01/28/19 at 11:30 Aspirin (Ecotrin) 81 mg DAILYWBKFT PO Last administered on 01/29/19 08:42; Start 01/29/19 at 08:00 Ondansetron HCl (Zofran Odt) 8 mg PRN Q4HRS PRN PO NAUSEA/VOMITING Last administered on 01/30/19at 07:54; Start 01/30/19 at 07:30 Active Scripts Active Enoxaparin Sodium 40 Mg/0.4 Ml Disp.syrin 40 Mg SQ Q24H MDD 1 10 Days Doxycycline Hyclate 100 Mg Tablet 100 Mg PO BID MDD 2 5 Days Reported Percocet 5-325 Mg Tablet (Oxycodone/Acetaminophen) 1 Each Tablet 2 Tab PO PRN Q6HRS PRN Xanax (Alprazolam) 0.25 Mg Tablet 1 Tab PO BID PRN Fluocinonide-E 0.05% Cream (Fluocinonide/Emollient) 15 Gm Cream..g. 15 Gm TP QIDPRN PRN Trelegy Ellipta 100-62.5-25 (Fluticasone/Umeclidin/Vilanter) 1 Each Blst.w.dev 1 Each IH DAILY Tessalon Perle (Benzonatate) 100 Mg Capsule 200 Mg PO BID PRN D3-50 (Cholecalciferol (Vitamin D3)) 50,000 Unit Capsule 50,000 Unit PO WEEKLY Lisinopril 2.5 Mg Tablet 2.5 Mg PO DAILY Bisoprolol Fumarate 5 Mg Tablet 5 Mg PO DAILY Zofran (Ondansetron Hcl) 4 Mg Tablet 2 Tab PO Q6HRS Proair Hfa (Albuterol Sulfate) 8.5 Gm Hfa.aer.ad 1 Puff INH PRN Q6HRS PRN Protonix (Pantoprazole Sodium) 20 Mg Tablet.dr 40 Mg PO DAILY Vitals/I & O Vital Sign - Last 24 Hours 01/29/19 01/29/19 01/29/19 01/29/19 11:45 15:02 16:03 19:20 Temp 98.0 97.3 98.0 97.3 Pulse 107 91 Resp 20 20 B/P (MAP) 123/68 (86) 96/67 (77) Pulse Ox 93 98 90 93 O2 Delivery Nasal Cannula Nasal Cannula Nasal Cannula Nasal Cannula O2 Flow Rate 3.0 3.0 3.0 3.0 01/29/19 01/29/19 01/29/19 01/29/19 19:24 19:53 23:10 23:30 Temp 97.5 97.5 97.5 97.5 Pulse 89 92 Resp 20 18 B/P (MAP) 101/66 (78) 104/65 (78) Pulse Ox 97 96 95 O2 Delivery Nasal Cannula Nasal Cannula Nasal Cannula BiPAP/CPAP O2 Flow Rate 3.0 3.0 3.0 01/30/19 01/30/19 01/30/19 01/30/19 01:45 03:12 07:16 07:51 Temp 97.6 98.2 97.6 98.2 Pulse 95 92 Resp 20 20 B/P (MAP) 91/61 (71) 122/72 (89) Pulse Ox 96 94 98 O2 Delivery BiPAP/CPAP BiPAP/CPAP Nasal Cannula BiPAP/CPAP O2 Flow Rate 3.0 01/30/19 08:01 O2 Delivery Nasal Cannula O2 Flow Rate 3.0 Intake and Output 01/29/19 01/29/19 01/30/19 15:00 23:00 07:00 Intake Total 400 ml 200 ml Output Total 150 ml 1200 ml Balance 250 ml 200 ml -1200 ml CARRI SPENCER MD Jan 30, 2019 08:53
--- NOTE | 2019-01-30 10:06 | PDOC ---
PULMONARY PROGRESS NOTES Subjective SLOWLY IMPROVING LIKES THE NEW BIPAP PRESSURE Vitals Vital Signs Date Time Temp Pulse Resp B/P (MAP) Pulse Ox O2 Delivery O2 Flow Rate FiO2 01/30/19 08:01 Nasal Cannula 3.0 01/30/19 07:51 98.2 92 20 122/72 (89) 98 98.2 ROS: No Nausea, No Chest Pain, No Abdominal Pain, No Increase Cough General: Alert Lungs: Clear Cardiovascular: S1, S2 Abdomen: Soft Neuro Exam: Alert Extremities: No Edema, Other Skin: Warm Labs Laboratory Tests Test 01/29/19 03:00 01/29/19 08:00 White Blood Count 9.1 x10^3/uL (4.0-11.0) Red Blood Count 3.97 x10^6/uL (4.30-5.70) Hemoglobin 11.7 g/dL (13.0-17.5) Hematocrit 37.9 % (39.0-53.0) Mean Corpuscular Volume 96 fL (79-100) Mean Corpuscular Hemoglobin 30 pg (25-35) Mean Corpuscular Hemoglobin Concent 31 g/dL (31-37) Red Cell Distribution Width 14.9 % (11.5-14.5) Platelet Count 243 x10^3/uL (140-400) Neutrophils (%) (Auto) 95 % (31-73) Lymphocytes (%) (Auto) 2 % (24-48) Monocytes (%) (Auto) 3 % (0-9) Eosinophils (%) (Auto) 0 % (0-3) Basophils (%) (Auto) 0 % (0-3) Neutrophils # (Auto) 8.6 x10^3/uL (1.8-7.7) Lymphocytes # (Auto) 0.2 x10^3/uL (1.0-4.8) Monocytes # (Auto) 0.2 x10^3/uL (0.0-1.1) Eosinophils # (Auto) 0.0 x10^3/uL (0.0-0.7) Basophils # (Auto) 0.0 x10^3/uL (0.0-0.2) Segmented Neutrophils % 96 % (35-66) Lymphocytes % 2 % (24-48) Monocytes % 2 % (0-10) Platelet Estimate Adequate (ADEQUATE) Polychromasia Slight Anisocytosis Slight Sodium Level 142 mmol/L (136-145) Potassium Level 4.0 mmol/L (3.5-5.1) Chloride Level 95 mmol/L (98-107) Carbon Dioxide Level > 45 mmol/L (21-32) Anion Gap 2 (6-14) Blood Urea Nitrogen 27 mg/dL (8-26) Creatinine 0.7 mg/dL (0.7-1.3) Estimated GFR (Cockcroft-Gault) 115.4 BUN/Creatinine Ratio 39 (6-20) Glucose Level 135 mg/dL (70-99) Calcium Level 9.1 mg/dL (8.5-10.1) Total Bilirubin 0.4 mg/dL (0.2-1.0) Aspartate Amino Transf (AST/SGOT) 19 U/L (15-37) Alanine Aminotransferase (ALT/SGPT) 17 U/L (16-63) Alkaline Phosphatase 44 U/L (46-116) Troponin I Quantitative 0.065 ng/mL (0.000-0.055) Total Protein 6.7 g/dL (6.4-8.2) Albumin 3.1 g/dL (3.4-5.0) Albumin/Globulin Ratio 0.9 (1.0-1.7) Triglycerides Level 74 mg/dL (0-150) Cholesterol Level 160 mg/dL (0-200) LDL Cholesterol, Calculated 84 mg/dL (0-100) VLDL Cholesterol, Calculated 15 mg/dL (0-40) Non-HDL Cholesterol Calculated 99 mg/dL (0-129) HDL Cholesterol 61 mg/dL (40-60) Cholesterol/HDL Ratio 2.6 O2 Saturation 98 % (92-99) Arterial Blood pH 7.55 (7.35-7.45) Arterial Blood pCO2 at Patient Temp 49 mmHg (35-46) Arterial Blood pO2 at Patient Temp 103 mmHg (65-108) Arterial Blood HCO3 42 mmol/L (21-28) Arterial Blood Base Excess 17 mmol/L (-3-3) FiO2 32 Medications Active Scripts Medications Dose Route/Sig Max Daily Dose Days Date Category Dose Instructions Enoxaparin Sodium 40 Mg/0.4 Ml Disp.syrin 40 Mg SQ Q24H MDD 1 10 06/25/18 Rx Doxycycline Hyclate 100 Mg Tablet 100 Mg PO BID MDD 2 5 06/25/18 Rx Fluocinonide-E 0.05% Cream (Fluocinonide/Emollient) 15 Gm Cream..g. 15 Gm TP QIDPRN PRN 06/18/18 Reported Trelegy Ellipta 100-62.5-25 (Fluticasone/Umeclidin/Vilanter) 1 Each Blst.w.dev 1 Each IH DAILY 06/18/18 Reported Tessalon Perle (Benzonatate) 100 Mg Capsule 200 Mg PO BID PRN 06/18/18 Reported D3-50 (Cholecalciferol (Vitamin D3)) 50,000 Unit Capsule 50,000 Unit PO WEEKLY 06/18/18 Reported Lisinopril 2.5 Mg Tablet 2.5 Mg PO DAILY 06/18/18 Reported Sucralfate 1 Gm Tablet 1 Tab PO TID 06/16/18 Reported Triamcinolone Acetonide 0.1% Oint (Triamcinolone Acetonide) 15 Gm Oint...g. 1 Mayra TP BID 06/11/18 Reported MIX WITH EUCERIN DIRECTED BY PHYSICIAN Bisoprolol Fumarate 5 Mg Tablet 5 Mg PO DAILY 06/11/18 Reported Zofran (Ondansetron Hcl) 4 Mg Tablet 1 Tab PO Q6HRS 06/11/18 Reported Acidophilus Capsule (L. Acidophilus/Pectin, [place]) 1 Each Capsule 1 Each PO DAILY 06/11/18 Reported Proair Hfa (Albuterol Sulfate) 8.5 Gm Hfa.aer.ad 1 Puff INH PRN Q6HRS PRN 06/11/18 Reported Protonix (Pantoprazole Sodium) 20 Mg Tablet.dr 40 Mg PO DAILY 06/11/18 Reported Impression . IMPRESSION: 1. Acute on chronic hypoxemic /hypercapnic respiratory failure. 2. Acute exacerbation of chronic obstructive pulmonary disease. 3. Abnormal x-ray revealing evidence of small effusion with some atelectasis and some interstitial changes. 4. Anxiety disorder, unspecified. 5. Tobacco dependence, in remission. 6. History of previous respiratory failure, requiring intubation. 7. Chronic anemia. 8. Tobacco dependent, in remission. Plan . ABG 01/29 WITH OVER CORRECTION / REDUCED BIPAP SETTINGS FEELS BETTER WITH NEW SETTINGS 1. PRN BiPAP qhs 2. Oxygen supplementation during the day. 3. Steroids.,on PO 4. Empiric antibiotics. 5. WILL REVIEW home BIPAP settings 6. await skill care transfer d/w GLENROY BROOKS MD Jan 30, 2019 10:06
[2019-01-30] MEDS: ATENOLOL 50 MG TABLET. PO SCH (11:08)
[2019-01-30] MEDS: predniSONE 10 MG TABLET PO SCH ×3 (11:08→20:31)
[2019-01-30] MEDS: FOLIC ACID 1 MG TABLET. PO SCH (11:08)
[2019-01-30] MEDS: LACTOBACILLUS RHAMNOSUS GG 1 CAPSULE. PO SCH ×2 (11:08→20:31)
[2019-01-30] MEDS: LISINOPRIL 5 MG TABLET. PO SCH (11:09)
[2019-01-30] MEDS: DOXYCYCLINE HYCLATE 100 MG in IV DEXTROSE 5% 100ML 100 ML IV SCH ×2 (11:10→20:31)
--- NOTE | 2019-01-30 11:28 | NUR ---
Spoke with Ruthie and she reports fax was not received. Re-faxed referral [facility] again. Acceptance pending.
[2019-01-30 11:30] VITALS: BP 100/62
[2019-01-30] MEDS: ENOXAPARIN 40 MG/0.4 ML SYRINGE. SQ SCH (14:26)
[2019-01-30] MEDS ORDERED: ALBUTEROL SULFATE 2.5 MG/3 ML NEBU. NEB PRN (14:30)
[2019-01-30 15:34] VITALS: BP 92/55
--- NOTE | 2019-01-30 16:32 | CARD ---
MR#: [id number] Date of Study: 01/29/2019 Ordering Physician: GEETA MILNER, Referring Physician: GEETA MILNER, Tech: Eleonora Wooten APPROVED REPORT EXAM: Two-dimensional and M-mode echocardiogram with Doppler and color Doppler. Other Information Quality : AverageHR: 104bpm INDICATION Elevated Troponins 2D DIMENSIONS RVDd4.1 (2.9-3.5cm)Left Atrium(2D)3.8 (1.6-4.0cm) IVSd1.7 (0.7-1.1cm)Aortic Root(2D)2.1 (2.0-3.7cm) LVDd4.3 (3.9-5.9cm)LVOT Diameter2.1 (1.8-2.4cm) PWd0.5 (0.7-1.1cm)LVDs3.7 (2.5-4.0cm) FS (%) 14.6 %SV26.0 ml Aortic Valve AoV Peak Jimbo.107.2cm/sAoV VTI15.0cm AO Peak GR.4.6mmHgLVOT Peak Jimbo.90.3cm/s AO Mean GR.3mmHgAVA (VMAX)2.88cm2 Mitral Valve MV E Ugcztgvg03.6cm/sMV E Peak Gr.2mmHg MV DECEL [id number] A Qtvvyraa26.3cm/s MV E Mean Gr.1mmHgE/A Ratio2.3 Pulmonary Valve PV Peak Ehyreqct15.4cm/s Tricuspid Valve TR P. Ogyxvauv633om/sRAP [id number] TR Peak Gr.51mvUxUTTW28wgOz Pulmonary Vein S1 Amyjcohf77.1cm/sD2 Dprhaujn35.5cm/s LEFT VENTRICLE The left ventricle is normal size. There is mild septal left ventricular hypertrophy. The systolic fu nction is at the lower limit of normal to mildly impaired. The Ejection Fraction is 45-50%. Mild sept al wall motion abnormality possibly due to conduction. Transmitral Doppler flow pattern is Grade II-p seudonormal filling dynamics. RIGHT VENTRICLE The right ventricle is mildly dilated. The right ventricular systolic function is normal. ATRIA The left atrium size is normal. The right atrium size is normal. The interatrial septum is intact wit h no evidence for an atrial septal defect or patent foramen ovale as noted on 2-D or Doppler imaging. AORTIC VALVE The aortic valve is normal in structure and function. Doppler and Color Flow revealed no significant aortic regurgitation. There is no significant aortic valvular stenosis. MITRAL VALVE The mitral valve is mildly thickened but opens well. There is no evidence of mitral valve prolapse. T here is no mitral valve stenosis. Doppler and Color-flow revealed trace mitral regurgitation. TRICUSPID VALVE The tricuspid valve is normal in structure and function. Doppler and Color Flow revealed mild tricusp id regurgitation with an estmated PAP of 32 mmHg. There is no tricuspid valve stenosis. PULMONIC VALVE The pulmonic valve is not well visualized. Doppler and Color Flow revealed no pulmonic valvular regur gitation. GREAT VESSELS The aortic root is normal in size. The ascending aorta is normal in size. The IVC is normal in size a nd collapses >50% with inspiration. PERICARDIAL EFFUSION There is no pleural effusion. There is no evidence of significant pericardial effusion. Critical Notification Critical Value: No <Conclusion> The left ventricle is normal size. The systolic function is at the lower limit of normal to mildly impaired. The Ejection Fraction is 45-50%. Mild septal wall motion abnormality possibly due to conduction. There is mild septal left ventricular hypertrophy. There is no significant aortic valvular stenosis. Doppler and Color Flow revealed no significant aortic regurgitation. Doppler and Color-flow revealed trace mitral regurgitation. Doppler and Color Flow revealed mild tricuspid regurgitation with an estmated PAP of 32 mmHg. Signed by : Alireza Daniels MD Electronically Approved : 01/29/2019 11:46:07
[2019-01-30 19:02] VITALS: BP 107/67
[2019-01-30 23:04] VITALS: BP 94/57
[2019-01-31 04:00] VITALS: BP 104/59
[2019-01-31] MEDS: ONDANSETRON ODT 4 MG TAB.RAPDIS. PO PRN (06:16)
[2019-01-31] MEDS: PANTOPRAZOLE 40 MG TABLET.DR. PO SCH (06:19)
[2019-01-31] MEDS: IPRATRPIUM/ALBUTEROL 0.5/2.5MG 3 ML NEBU. NEB SCH (07:25)
[2019-01-31] MEDS: BUDESONIDE 0.5 MG/2 ML NEBU. NEB SCH (07:25)
[2019-01-31 07:50] VITALS: BP 96/64
[2019-01-31] MEDS: LACTOBACILLUS RHAMNOSUS GG 1 CAPSULE. PO SCH ×2 (09:37→20:23)
[2019-01-31] MEDS: DOXYCYCLINE HYCLATE 100 MG in IV DEXTROSE 5% 100ML 100 ML IV SCH ×2 (09:37→22:02)
[2019-01-31] MEDS: FOLIC ACID 1 MG TABLET. PO SCH (09:42)
[2019-01-31] MEDS: LISINOPRIL 5 MG TABLET. PO SCH (09:42)
[2019-01-31] MEDS: predniSONE 10 MG TABLET PO SCH ×3 (09:42→20:23)
[2019-01-31] MEDS: ASPIRIN ENTERIC COATED 81 MG TABLET.DR. PO SCH (09:44)
[2019-01-31] MEDS: ATENOLOL 50 MG TABLET. PO SCH (09:44)
[2019-01-31] MEDS ORDERED: ALBUTEROL HFA INH PRN (10:30)
--- NOTE | 2019-01-31 11:01 | PDOC ---
PULMONARY PROGRESS NOTES Subjective NO NEW COMPLAIN LIKES THE NEW BIPAP PRESSURE Vitals Vital Signs Date Time Temp Pulse Resp B/P (MAP) Pulse Ox O2 Delivery O2 Flow Rate FiO2 01/31/19 09:44 100 101/60 01/31/19 09:40 Nasal Cannula 3.0 01/31/19 07:50 98.1 20 96 98.1 ROS: No Nausea, No Chest Pain, No Abdominal Pain, No Increase Cough General: Alert, No acute distress Lungs: Clear Cardiovascular: S1, S2 Abdomen: Soft Neuro Exam: Alert Extremities: No Edema, Other Skin: Warm Medications Active Scripts Medications Dose Route/Sig Max Daily Dose Days Date Category Dose Instructions Enoxaparin Sodium 40 Mg/0.4 Ml Disp.syrin 40 Mg SQ Q24H MDD 1 10 06/25/18 Rx Doxycycline Hyclate 100 Mg Tablet 100 Mg PO BID MDD 2 5 06/25/18 Rx Fluocinonide-E 0.05% Cream (Fluocinonide/Emollient) 15 Gm Cream..g. 15 Gm TP QIDPRN PRN 06/18/18 Reported Trelegy Ellipta 100-62.5-25 (Fluticasone/Umeclidin/Vilanter) 1 Each Blst.w.dev 1 Each IH DAILY 06/18/18 Reported Tessalon Perle (Benzonatate) 100 Mg Capsule 200 Mg PO BID PRN 06/18/18 Reported D3-50 (Cholecalciferol (Vitamin D3)) 50,000 Unit Capsule 50,000 Unit PO WEEKLY 06/18/18 Reported Lisinopril 2.5 Mg Tablet 2.5 Mg PO DAILY 06/18/18 Reported Sucralfate 1 Gm Tablet 1 Tab PO TID 06/16/18 Reported Triamcinolone Acetonide 0.1% Oint (Triamcinolone Acetonide) 15 Gm Oint...g. 1 Mayra TP BID 06/11/18 Reported MIX WITH EUCERIN DIRECTED BY PHYSICIAN Bisoprolol Fumarate 5 Mg Tablet 5 Mg PO DAILY 06/11/18 Reported Zofran (Ondansetron Hcl) 4 Mg Tablet 1 Tab PO Q6HRS 06/11/18 Reported Acidophilus Capsule (L. Acidophilus/Pectin, [place]) 1 Each Capsule 1 Each PO DAILY 06/11/18 Reported Proair Hfa (Albuterol Sulfate) 8.5 Gm Hfa.aer.ad 1 Puff INH PRN Q6HRS PRN 06/11/18 Reported Protonix (Pantoprazole Sodium) 20 Mg Tablet.dr 40 Mg PO DAILY 06/11/18 Reported Impression . IMPRESSION: 1. Acute on chronic hypoxemic /hypercapnic respiratory failure. 2. Acute exacerbation of chronic obstructive pulmonary disease. 3. Abnormal x-ray revealing evidence of small effusion with some atelectasis and some interstitial changes. 4. Anxiety disorder, unspecified. 5. Tobacco dependence, in remission. 6. History of previous respiratory failure, requiring intubation. 7. Chronic anemia. 8. Tobacco dependent, in remission. Plan . ABG 01/29 WITH OVER CORRECTION / REDUCED BIPAP SETTINGS FEELS BETTER WITH NEW SETTINGS 1. BiPAP qhs 2. Oxygen supplementation during the day. 3. Steroids PO 4. Empiric antibiotics. 5. WILL REVIEW home BIPAP settings 6. await skill care transfer d/w GLENROY BROOKS MD Jan 31, 2019 11:01
[2019-01-31 11:10] VITALS: BP 94/58
--- NOTE | 2019-01-31 11:41 | PDOC ---
PROGRESS NOTES Chief Complaint Chief Complaint A/P: [id number]-[id number] hypoxic hypercapnic respiratory failure, improved. trace left pleural effusion with adjacent compressive atelectasis. Patchy interstitial changes are noted with subpleural predominance. Bullous airspace disease noted in the right upper lobe without definite pneumothorax. Acute exacerbation of chronic obstructive pulmonary disease. Bullous airspace disease noted in the right upper lobe without definite pneumothorax. Findings are compatible with COPD. Hypertension. Chronic anemia. Anxiety. Marked muscle wasting, weakness and deconditioning. TOBACCO ABUSE DISORDER IN REMISSION Resp alkalosis Plan: BiPAP SUPPORT Oxygen supplementation during the day. Steroids.IV, taper Empiric antibiotics. home Trilogy ventilator. tamara dvt prophylaxis reset bipap settings ECHO snf admit 28 MIN PT EXAM, chart review, > 50% of time spent with exam, chart review, pt chart review pt care coordination History of Present Illness History of Present Illness 58 yo male who presented secondary to shortness of breath. Has a history of COPD. Is O2 dependent. Has been more short of breath the last couple of weeks. Has progressively worsened. Has difficulty catching his breath the day of arrival. Troponin noted to be mildly elevated, . Denies any chest pain, dizziness, diaphoresis, palpitations, or nausea/vomiting. He still feels pressure in his chest, is asking if he can have his home inhalers, incruse, and breo. More comfortable with his BIPAP settings. Vitals Vitals Vital Signs Date Time Temp Pulse Resp B/P (MAP) Pulse Ox O2 Delivery O2 Flow Rate FiO2 01/31/19 11:10 98.1 68 16 94/58 (70) 94 BiPAP/CPAP 98.1 01/31/19 09:40 3.0 Physical Exam General: Alert, Oriented X3, Cooperative, No acute distress Heart: Regular rate (SR, ST), Normal S1 Lungs: Clear Abdomen: Normal bowel sounds, Soft, No tenderness Extremities: No cyanosis, No edema, Normal pulses Skin: No breakdown Assessment and Plan Assessmemt and Plan Problems Medical Problems: (1) Dyspnea Status: Acute (2) Weakness Status: Acute Comment Review of Relevant I have reviewed the following items kishore (where applicable) has been applied. Medications Current Medications Albuterol/ Ipratropium (Duoneb) 3 ml 1X ONCE NEB Last administered on 01/18 at 13:52; Start 01/27/19 at 13:45; Stop 01/27/19 at 13:48; Status DC Methylprednisolone Sodium Succinate (SOLU-Medrol 125MG VIAL) 125 mg 1X ONCE IV Last administered on 01/27/19at 14:05; Start 01/27/19 at 13:45; Stop 01/27/19 at 13:48; Status DC Sodium Chloride 1,000 ml @ 75 mls/hr 1X ONCE IV Last administered on 01/27/19at 14:08; Start 01/27/19 at 13:45; Stop 01/28/19 at 03:04; Status DC Furosemide (Lasix) 40 mg 1X ONCE IVP Last administered on 01/27/19at 15:35; Start 01/27/19 at 15:15; Stop 01/27/19 at 15:16; Status DC Methylprednisolone Sodium Succinate (SOLU-Medrol 40MG VIAL) 40 mg Q12HR IV Last administered on 01/29/19at 08:44; Start 01/27/19 at 21:00; Stop 01/29/19 at 10:37; Status DC Albuterol Sulfate (Ventolin Neb Soln) 2.5 mg PRN Q2HR PRN NEB DYSPNEA; Start 01/27/19 at 17:30; Stop 01/30/19 at 16:13; Status DC Albuterol/ Ipratropium (Duoneb) 3 ml RTQID NEB Last administered on 01/30/19at 11:50; Start 01/27/19 at 20:00; Stop 01/30/19 at 14:35; Status DC Doxycycline Hyclate 100 mg/ Dextrose 100 ml @ 50 mls/hr Q12HR IV Last administered on 01/31/19at 09:37; Start 01/27/19 at 21:00 Lactobacillus Rhamnosus (Culturelle) 1 cap BID PO Last administered on 01/31/19at 09:37; Start 01/27/19 at 21:00 Folic Acid (Folic Acid) 1 mg DAILY PO Last administered on 01/31/19at 09:42; Start 01/28/19 at 09:00 Prednisone (Prednisone) 10 mg TID PO Last administered on 01/31/19at 09:42; Start 01/27/19 at 21:00 Influenza Virus Vaccine Quadrival (Afluria Quad 2019-20 (3yr Up) Syringe) 0.5 ml ONCE ONCE VAX IM Last administered on 01/28/19at 10:42; Start 01/28/19 at 10:00; Stop 01/28/19 at 10:01; Status DC Ondansetron HCl (Zofran Odt) 4 mg PRN Q4HRS PRN PO NAUSEA/VOMITING Last administered on 01/29/19at 06:31; Start 01/28/19 at 10:30; Stop 01/30/19 at 07:26; Status DC Albuterol Sulfate (Ventolin Neb Soln) 2.5 mg PRN Q6HRS PRN INH SHORTNESS OF BREATH; Start 01/28/19 at 11:15; Stop 01/28/19 at 11:18; Status DC Alprazolam (Xanax) 0.25 mg BID PRN PO ANXIETY; Start 01/28/19 at 11:15 Benzonatate (Tessalon Perle) 200 mg BID PRN PO COUGH; Start 01/28/19 at 11:15 Enoxaparin Sodium (Lovenox 40mg Syringe) 40 mg Q24H SQ Last administered on 01/30/19at 14:26; Start 01/28/19 at 12:00 Atenolol (Tenormin) 50 mg DAILY PO Last administered on 01/31/19at 09:44; Start 01/28/19 at 12:00 Ergocalciferol (Vitamin D2) 50,000 unit WEEKLY PO ; Start 02/04/19 at 09:00 Fluocinonide (Lidex) 1 ivette PRN TID PRN TP ITCHY SKIN; Start 01/28/19 at 14:00 Budesonide (Pulmicort) 0.5 mg RTBID NEB Last administered on 01/30/19at 07:13; Start 01/28/19 at 20:00; Stop 01/31/19 at 10:19; Status DC Lisinopril (Prinivil) 2.5 mg DAILY PO Last administered on 01/31/19at 09:42; Start 01/28/19 at 12:00 Ondansetron HCl (Zofran Odt) 4 mg PRN Q8HRS PRN PO NAUSEA/VOMITING; Start 01/28/19 at 11:30; Status UNV Pantoprazole Sodium (Protonix) 40 mg DAILYAC PO Last administered on 01/31/19at 06:19; Start 01/28/19 at 11:30 Aspirin (Ecotrin) 81 mg DAILYWBKFT PO Last administered on 01/29/19at 08:42; Start 01/29/19 at 08:00 Ondansetron HCl (Zofran Odt) 8 mg PRN Q4HRS PRN PO NAUSEA/VOMITING Last administered on 01/31/19at 06:16; Start 01/30/19 at 07:30 Albuterol Sulfate (Ventolin Neb Soln) 2.5 mg PRN Q4HRS PRN NEB SHORTNESS OF BREATH; Start 01/30/19 at 14:30; Stop 01/31/19 at 10:19; Status DC Albuterol/ Ipratropium (Duoneb) 3 ml RTQID NEB ; Start 01/30/19 at 16:00; Stop 01/31/19 at 10:19; Status DC Non-Formulary Medication 1 ea PRN Q6HRS PRN INH SHORTNESS OF BREATH; Start 01/31/19 at 10:30 Non-Formulary Medication 1 ea DAILY INH ; Start 01/31/19 at 11:00 Non-Formulary Medication 1 ea DAILY INH ; Start 01/31/19 at 10:30 Active Scripts Active Enoxaparin Sodium 40 Mg/0.4 Ml Disp.syrin 40 Mg SQ Q24H MDD 1 10 Days Doxycycline Hyclate 100 Mg Tablet 100 Mg PO BID MDD 2 5 Days Reported Percocet 5-325 Mg Tablet (Oxycodone/Acetaminophen) 1 Each Tablet 2 Tab PO PRN Q6HRS PRN Xanax (Alprazolam) 0.25 Mg Tablet 1 Tab PO BID PRN Fluocinonide-E 0.05% Cream (Fluocinonide/Emollient) 15 Gm Cream..g. 15 Gm TP QIDPRN PRN Trelegy Ellipta 100-62.5-25 (Fluticasone/Umeclidin/Vilanter) 1 Each Blst.w.dev 1 Each IH DAILY Tessalon Perle (Benzonatate) 100 Mg Capsule 200 Mg PO BID PRN D3-50 (Cholecalciferol (Vitamin D3)) 50,000 Unit Capsule 50,000 Unit PO WEEKLY Lisinopril 2.5 Mg Tablet 2.5 Mg PO DAILY Bisoprolol Fumarate 5 Mg Tablet 5 Mg PO DAILY Zofran (Ondansetron Hcl) 4 Mg Tablet 2 Tab PO Q6HRS Proair Hfa (Albuterol Sulfate) 8.5 Gm Hfa.aer.ad 1 Puff INH PRN Q6HRS PRN Protonix (Pantoprazole Sodium) 20 Mg Tablet.dr 40 Mg PO DAILY Vitals/I & O Vital Sign - Last 24 Hours 01/30/19 01/30/19 01/30/19 01/30/19 11:50 15:34 19:02 20:00 Temp 97.6 98.0 97.6 98.0 Pulse 96 107 Resp 20 18 B/P (MAP) 92/55 (67) 107/67 (80) Pulse Ox 94 92 95 O2 Delivery Nasal Cannula Nasal Cannula Nasal Cannula Nasal Cannula O2 Flow Rate 3.0 3.0 3.0 3.0 01/30/19 01/31/19 01/31/19 01/31/19 23:04 00:30 03:00 04:00 Temp 98.2 98.5 98.2 98.5 Pulse 95 86 Resp 18 20 B/P (MAP) 94/57 (69) 104/59 (74) Pulse Ox 96 96 94 O2 Delivery Nasal Cannula BiPAP/CPAP BiPAP/CPAP BiPAP/CPAP O2 Flow Rate 3.0 01/31/19 01/31/19 01/31/19 01/31/19 07:26 07:50 09:40 09:42 Temp 98.1 98.1 Pulse 89 100 Resp 20 B/P (MAP) 96/64 (75) 101/60 Pulse Ox 96 O2 Delivery Nasal Cannula BiPAP/CPAP Nasal Cannula O2 Flow Rate 3.0 3.0 01/31/19 01/31/19 09:44 11:10 Temp 98.1 98.1 Pulse 100 68 Resp 16 B/P (MAP) 101/60 94/58 (70) Pulse Ox 94 O2 Delivery BiPAP/CPAP Intake and Output 01/30/19 01/30/19 01/31/19 14:59 22:59 06:59 Intake Total 200 ml 200 ml Output Total 200 ml 200 ml 400 ml Balance 0 ml 0 ml -400 ml DEBBIE DE LA TORRE MD Jan 31, 2019 11:41
--- NOTE | 2019-01-31 12:40 | NUR ---
Late entry: [facility] declined to take pt. Spoke with pt's on 01/30 and she chose [facility]. Referral faxed yesterday. Pt is accepted at [facility] pending insurance approval. Auth for insurance is submitted today. Will continue to follow.
[2019-01-31] MEDS: BREO ELLIPTA INH SCH (14:08)
[2019-01-31] MEDS: INCRUSE ELLIPTA INH SCH (14:08)
[2019-01-31] MEDS: ENOXAPARIN 40 MG/0.4 ML SYRINGE. SQ SCH (14:09)
[2019-01-31 15:18] VITALS: BP 94/59
[2019-01-31 19:11] VITALS: BP 95/62
[2019-01-31 23:27] VITALS: BP 101/57
[2019-02-01 03:13] VITALS: BP 93/62
[2019-02-01] MEDS: ONDANSETRON ODT 4 MG TAB.RAPDIS. PO PRN (06:18)
[2019-02-01] MEDS: PANTOPRAZOLE 40 MG TABLET.DR. PO SCH ×2 (06:19→10:04)
[2019-02-01 07:00] VITALS: BP 100/65
--- NOTE | 2019-02-01 08:57 | PDOC ---
PROGRESS NOTES Chief Complaint Chief Complaint discharge dx [id number] hypoxic hypercapnic respiratory failure, improved. trace left pleural effusion with adjacent compressive atelectasis. Patchy interstitial changes are noted with subpleural predominance. Bullous airspace disease noted in the right upper lobe without definite pneumothorax. Acute exacerbation of chronic obstructive pulmonary disease. Bullous airspace disease noted in the right upper lobe without definite pneumothorax. Findings are compatible with COPD. Hypertension. Chronic anemia. Anxiety. Marked muscle wasting, weakness and deconditioning. TOBACCO ABUSE DISORDER IN REMISSION Resp alkalosis Plan: BiPAP SUPPORT Oxygen supplementation during the day. Steroids.IV, taper Empiric antibiotics. home Trilogy ventilator. tamara dvt prophylaxis reset bipap settings ECHO snf admit 28 MIN PT EXAM, chart review d/c planning , > 50% of time spent with exam, chart review, pt chart review pt care coordination History of Present Illness History of Present Illness 58 yo male who presented secondary to shortness of breath. Has a history of COPD. Is O2 dependent. Has been more short of breath the last couple of weeks. Has progressively worsened. Has difficulty catching his breath the day of arrival. Troponin noted to be mildly elevated, . Denies any chest pain, dizziness, diaphoresis, palpitations, or nausea/vomiting. More comfortable with his BIPAP settings. Vitals Vitals Vital Signs Date Time Temp Pulse Resp B/P (MAP) Pulse Ox O2 Delivery O2 Flow Rate FiO2 02/01/19 07:00 97.9 86 18 100/65 (77) 97 Nasal Cannula 3.0 97.9 Physical Exam General: Alert, Oriented X3, Cooperative, No acute distress Heart: Regular rate (SR, ST), Normal S1 Lungs: Clear Abdomen: Normal bowel sounds, Soft, No tenderness Extremities: No cyanosis, No edema, Normal pulses Skin: No breakdown Assessment and Plan Assessmemt and Plan Problems Medical Problems: (1) Dyspnea Status: Acute (2) Weakness Status: Acute Comment Review of Relevant I have reviewed the following items kishore (where applicable) has been applied. Medications Current Medications Albuterol/ Ipratropium (Duoneb) 3 ml 1X ONCE NEB Last administered on 01/27/19at 13:52; Start 01/27/19 at 13:45; Stop 01/27/19 at 13:48; Status DC Methylprednisolone Sodium Succinate (SOLU-Medrol 125MG VIAL) 125 mg 1X ONCE IV Last administered on 01/27/19at 14:05; Start 01/27/19 at 13:45; Stop 01/27/19 at 13:48; Status DC Sodium Chloride 1,000 ml @ 75 mls/hr 1X ONCE IV Last administered on 01/27/19at 14:08; Start 01/27/19 at 13:45; Stop 01/28/19 at 03:04; Status DC Furosemide (Lasix) 40 mg 1X ONCE IVP Last administered on 01/27/19at 15:35; Start 01/27/19 at 15:15; Stop 01/27/19 at 15:16; Status DC Methylprednisolone Sodium Succinate (SOLU-Medrol 40MG VIAL) 40 mg Q12HR IV Last administered on 01/29/19at 08:44; Start 01/27/19 at 21:00; Stop 01/29/19 at 10:37; Status DC Albuterol Sulfate (Ventolin Neb Soln) 2.5 mg PRN Q2HR PRN NEB DYSPNEA; Start 01/27/19 at 17:30; Stop 01/30/19 at 16:13; Status DC Albuterol/ Ipratropium (Duoneb) 3 ml RTQID NEB Last administered on 01/30/19at 11:50; Start 01/27/19 at 20:00; Stop 01/30/19 at 14:35; Status DC Doxycycline Hyclate 100 mg/ Dextrose 100 ml @ 50 mls/hr Q12HR IV Last administered on 01/31/19at 22:02; Start 01/27/19 at 21:00 Lactobacillus Rhamnosus (Culturelle) 1 cap BID PO Last administered on 01/31/19at 20:23; Start 01/27/19 at 21:00 Folic Acid (Folic Acid) 1 mg DAILY PO Last administered on 01/31/19at 09:42; Start 01/28/19 at 09:00 Prednisone (Prednisone) 10 mg TID PO Last administered on 01/31/19at 20:23; Start 01/27/19 at 21:00 Influenza Virus Vaccine Quadrival (Afluria Quad 2019-20 (3yr Up) Syringe) 0.5 ml ONCE ONCE VAX IM Last administered on 01/28/19at 10:42; Start 01/28/19 at 10:00; Stop 01/28/19 at 10:01; Status DC Ondansetron HCl (Zofran Odt) 4 mg PRN Q4HRS PRN PO NAUSEA/VOMITING Last administered on 01/29/19at 06:31; Start 01/28/19 at 10:30; Stop 01/30/19 at 07:26; Status DC Albuterol Sulfate (Ventolin Neb Soln) 2.5 mg PRN Q6HRS PRN INH SHORTNESS OF BREATH; Start 01/28/19 at 11:15; Stop 01/28/19 at 11:18; Status DC Alprazolam (Xanax) 0.25 mg BID PRN PO ANXIETY; Start 01/28/19 at 11:15 Benzonatate (Tessalon Perle) 200 mg BID PRN PO COUGH; Start 01/28/19 at 11:15 Enoxaparin Sodium (Lovenox 40mg Syringe) 40 mg Q24H SQ Last administered on 01/31/19at 14:09; Start 01/28/19 at 12:00 Atenolol (Tenormin) 50 mg DAILY PO Last administered on 01/31/19at 09:44; Start 01/28/19 at 12:00 Ergocalciferol (Vitamin D2) 50,000 unit WEEKLY PO ; Start 02/04/19 at 09:00 Fluocinonide (Lidex) 1 ivette PRN TID PRN TP ITCHY SKIN; Start 01/28/19 at 14:00 Budesonide (Pulmicort) 0.5 mg RTBID NEB Last administered on 01/30/19at 07:13; Start 01/28/19 at 20:00; Stop 01/31/19 at 10:19; Status DC Lisinopril (Prinivil) 2.5 mg DAILY PO Last administered on 01/31/19at 09:42; Start 01/28/19 at 12:00 Ondansetron HCl (Zofran Odt) 4 mg PRN Q8HRS PRN PO NAUSEA/VOMITING; Start 01/28/19 at 11:30; Status UNV Pantoprazole Sodium (Protonix) 40 mg DAILYAC PO Last administered on 02/01/19at 06:19; Start 01/28/19 at 11:30 Aspirin (Ecotrin) 81 mg DAILYWBKFT PO Last administered on 01/29/19at 08:42; Start 01/29/19 at 08:00 Ondansetron HCl (Zofran Odt) 8 mg PRN Q4HRS PRN PO NAUSEA/VOMITING Last administered on 02/01/19at 06:18; Start 01/30/19 at 07:30 Albuterol Sulfate (Ventolin Neb Soln) 2.5 mg PRN Q4HRS PRN NEB SHORTNESS OF MARKO ATH; Start 01/30/19 at 14:30; Stop 01/31/19 at 10:19; Status DC Albuterol/ Ipratropium (Duoneb) 3 ml RTQID NEB ; Start 01/30/19 at 16:00; Stop 01/31/19 at 10:19; Status DC Non-Formulary Medication 1 ea PRN Q6HRS PRN INH SHORTNESS OF BREATH; Start 1 04/02/18 at 10:30 Non-Formulary Medication 1 ea DAILY INH Last administered on 01/31/19at 14:08; Start 01/31/19 at 11:00 Non-Formulary Medication 1 ea DAILY INH Last administered on 01/31/19at 14:08; Start 01/31/19 at 10:30 Active Scripts Active Enoxaparin Sodium 40 Mg/0.4 Ml Disp.syrin 40 Mg SQ Q24H MDD 1 10 Days Doxycycline Hyclate 100 Mg Tablet 100 Mg PO BID MDD 2 5 Days Reported Percocet 5-325 Mg Tablet (Oxycodone/Acetaminophen) 1 Each Tablet 2 Tab PO PRN Q6HRS PRN Xanax (Alprazolam) 0.25 Mg Tablet 1 Tab PO BID PRN Fluocinonide-E 0.05% Cream (Fluocinonide/Emollient) 15 Gm Cream..g. 15 Gm TP QIDPRN PRN Trelegy Ellipta 100-62.5-25 (Fluticasone/Umeclidin/Vilanter) 1 Each Blst.w.dev 1 Each IH DAILY Tessalon Perle (Benzonatate) 100 Mg Capsule 200 Mg PO BID PRN D3-50 (Cholecalciferol (Vitamin D3)) 50,000 Unit Capsule 50,000 Unit PO WEEKLY Lisinopril 2.5 Mg Tablet 2.5 Mg PO DAILY Bisoprolol Fumarate 5 Mg Tablet 5 Mg PO DAILY Zofran (Ondansetron Hcl) 4 Mg Tablet 2 Tab PO Q6HRS Proair Hfa (Albuterol Sulfate) 8.5 Gm Hfa.aer.ad 1 Puff INH PRN Q6HRS PRN Protonix (Pantoprazole Sodium) 20 Mg Tablet.dr 40 Mg PO DAILY Vitals/I & O Vital Sign - Last 24 Hours 01/31/19 01/31/19 01/31/19 01/31/19 09:40 09:42 09:44 11:10 Temp 98.1 98.1 Pulse 100 100 68 Resp 16 B/P (MAP) 101/60 101/60 94/58 (70) Pulse Ox 94 O2 Delivery Nasal Cannula BiPAP/CPAP O2 Flow Rate 3.0 01/31/19 01/31/19 01/31/19 01/31/19 15:18 19:11 20:00 23:27 Temp 98.3 97.5 97.6 98.3 97.5 97.6 Pulse 84 92 89 Resp 18 16 20 B/P (MAP) 94/59 (71) 95/62 (73) 101/57 (72) Pulse Ox 96 92 94 O2 Delivery BiPAP/CPAP Nasal Cannula Nasal Cannula Nasal Cannula O2 Flow Rate 3.0 3.0 3.0 01/31/19 02/01/19 02/01/19 02/01/19 23:45 01:45 03:13 03:52 Temp 98.0 98.0 Pulse 83 Resp 20 B/P (MAP) 93/62 (72) Pulse Ox 92 98 O2 Delivery BiPAP/CPAP BiPAP/CPAP BiPAP/CPAP BiPAP/CPAP 02/01/19 07:00 Temp 97.9 97.9 Pulse 86 Resp 18 B/P (MAP) 100/65 (77) Pulse Ox 97 O2 Delivery Nasal Cannula O2 Flow Rate 3.0 Intake and Output 01/31/19 01/31/19 02/01/19 15:00 23:00 07:00 Intake Total 200 ml 400 ml Output Total 200 ml 375 ml Balance 200 ml -200 ml 25 ml DEBBIE DE LA TORRE MD Feb 01, 2019 08:57
[2019-02-01] MEDS: FOLIC ACID 1 MG TABLET. PO SCH (10:05)
[2019-02-01] MEDS: ATENOLOL 50 MG TABLET. PO SCH (10:06)
[2019-02-01] MEDS: LACTOBACILLUS RHAMNOSUS GG 1 CAPSULE. PO SCH (10:06)
[2019-02-01] MEDS: LISINOPRIL 5 MG TABLET. PO SCH (10:06)
[2019-02-01] MEDS: predniSONE 10 MG TABLET PO SCH (10:07)
[2019-02-01] MEDS: ASPIRIN ENTERIC COATED 81 MG TABLET.DR. PO SCH (10:07)
[2019-02-01] MEDS: BREO ELLIPTA INH SCH (10:07)
[2019-02-01] MEDS: INCRUSE ELLIPTA INH SCH (10:08)
[2019-02-01 11:00] VITALS: BP 94/97
--- NOTE | 2019-02-01 12:00 | NUR ---
Insurance has approved SNU. Physician notified for orders. SW provided Pulm with home Bipap settings. Discussed with RN.
--- NOTE | 2019-02-01 12:17 | PDOC3 ---
Discharge Summary Date of Admission: Jan 27, 2019 Date of Discharge: Feb 01, 2019 Follow-Up: 1-2 days Admitting Diagnosis comment: discharge dx [id number] hypoxic hypercapnic respiratory failure, improved. trace left pleural effusion with adjacent compressive atelectasis. Patchy interstitial changes are noted with subpleural predominance. Bullous airspace disease noted in the right upper lobe without definite pneumothorax. Acute exacerbation of chronic obstructive pulmonary disease. Bullous airspace disease noted in the right upper lobe without definite pneumothorax. Findings are compatible with COPD. Hypertension. Chronic anemia. Anxiety. Marked muscle wasting, weakness and deconditioning. TOBACCO ABUSE DISORDER IN REMISSION Resp alkalosis Plan: BiPAP SUPPORT Oxygen supplementation during the day. Steroids.IV, taper Empiric antibiotics. home Trilogy ventilator. tamara dvt prophylaxis reset bipap settings ECHO snf admit 28 MIN PT EXAM, chart review d/c planning , > 50% of time spent with exam, chart review, pt chart review pt care coordination History of Present Illness History of Present Illness 58 yo male who presented secondary to shortness of breath. Has a history of COPD. Is O2 dependent. Has been more short of breath the last couple of weeks. Has progressively worsened. Has difficulty catching his breath the day of arrival. Troponin noted to be mildly elevated, . Denies any chest pain, dizziness, diaphoresis, palpitations, or nausea/vomiting. More comfortable with his BIPAP settings. Vitals Vitals Vital Signs Date Time Temp Pulse Resp B/P (MAP) Pulse Ox O2 Delivery O2 Flow Rate FiO2 02/01/19 07:00 97.9 86 18 100/65 (77) 97 Nasal Cannula 3.0 97.9 Physical Exam General: Alert, Oriented X3, Cooperative, No acute distress Heart: Regular rate (SR, ST), Normal S1 Lungs: Clear Abdomen: Normal bowel sounds, Soft, No tenderness Extremities: No cyanosis, No edema, Normal pulses Skin: No breakdown FINAL DIAGNOSIS Problems Medical Problems: (1) Dyspnea Status: Acute (2) Weakness Status: Acute Brief Hospital Course Mr. Caceres is a 58 old [sex] who presented with [hypercapnic resp failure, copd ] CONDITION AT DISCHARGE: Improved Discharge Medications Current Medications Albuterol/ Ipratropium (Duoneb) 3 ml 1X ONCE NEB Last administered on 01/27/19at 13:52; Start 01/27/19 at 13:45; Stop 01/27/19 at 13:48; Status DC Methylprednisolone Sodium Succinate (SOLU-Medrol 125MG VIAL) 125 mg 1X ONCE IV Last administered on 01/27/19at 14:05; Start 01/27/19 at 13:45; Stop 01/27/19 at 13:48; Status DC Sodium Chloride 1,000 ml @ 75 mls/hr 1X ONCE IV Last administered on 01/27/19at 14:08; Start 01/27/19 at 13:45; Stop 01/28/19 at 03:04; Status DC Furosemide (Lasix) 40 mg 1X ONCE IVP Last administered on 01/27/19at 15:35; Start 01/27/19 at 15:15; Stop 01/27/19 at 15:16; Status DC Methylprednisolone Sodium Succinate (SOLU-Medrol 40MG VIAL) 40 mg Q12HR IV Last administered on 01/29/19at 08:44; Start 01/27/19 at 21:00; Stop 01/29/19 at 10:37; Status DC Albuterol Sulfate (Ventolin Neb Soln) 2.5 mg PRN Q2HR PRN NEB DYSPNEA; Start 01/27/19 at 17:30; Stop 01/30/19 at 16:13; Status DC Albuterol/ Ipratropium (Duoneb) 3 ml RTQID NEB Last administered on 01/30/19at 11:50; Start 01/27/19 at 20:00; Stop 01/30/19 at 14:35; Status DC Doxycycline Hyclate 100 mg/ Dextrose 100 ml @ 50 mls/hr Q12HR IV Last a dministered on 01/31/19at 22:02; Start 01/27/19 at 21:00 Lactobacillus Rhamnosus (Culturelle) 1 cap BID PO Last administered on 02/01/19at 10:06; Start 01/27/19 at 21:00 Folic Acid (Folic Acid) 1 mg DAILY PO Last administered on 02/01/19at 10:05; Start 01/28/19 at 09:00 Prednisone (Prednisone) 10 mg TID PO Last administered on 02/01/19at 10:07; Start 01/27/19 at 21:00 Influenza Virus Vaccine Quadrival (Afluria Quad 2019-20 (3yr Up) Syringe) 0.5 ml ONCE ONCE VAX IM Last administered on 01/28/19at 10:42; Start 01/28/19 at 10:00; Stop 01/28/19 at 10:01; Status DC Ondansetron HCl (Zofran Odt) 4 mg PRN Q4HRS PRN PO NAUSEA/VOMITING Last administered on 01/29/19at 06:31; Start 01/28/19 at 10:30; Stop 01/30/19 at 07:26; Status DC Albuterol Sulfate (Ventolin Neb Soln) 2.5 mg PRN Q6HRS PRN INH SHORTNESS OF BREATH; Start 01/28/19 at 11:15; Stop 01/28/19 at 11:18; Status DC Alprazolam (Xanax) 0.25 mg BID PRN PO ANXIETY; Start 01/28/19 at 11:15 Benzonatate (Tessalon Perle) 200 mg BID PRN PO COUGH Last administered on 02/01/19at 10:05; Start 01/28/19 at 11:15 Enoxaparin Sodium (Lovenox 40mg Syringe) 40 mg Q24H SQ Last administered on 01/31/19at 14:09; Start 01/28/19 at 12:00 Atenolol (Tenormin) 50 mg DAILY PO Last administered on 02/01/19at 10:06; Start 01/28/19 at 12:00 Ergocalciferol (Vitamin D2) 50,000 unit WEEKLY PO ; Start 02/04/19 at 09:00 Fluocinonide (Lidex) 1 ivette PRN TID PRN TP ITCHY SKIN; Start 01/28/19 at 14:00 Budesonide (Pulmicort) 0.5 mg RTBID NEB Last administered on 01/30/19at 07:13; Start 01/28/19 at 20:00; Stop 01/31/19 at 10:19; Status DC Lisinopril (Prinivil) 2.5 mg DAILY PO Last administered on 02/01/19at 10:06; Start 01/28/19 at 12:00 Ondansetron HCl (Zofran Odt) 4 mg PRN Q8HRS PRN PO NAUSEA/VOMITING; Start 01/28/19 at 11:30; Status UNV Pantoprazole Sodium (Protonix) 40 mg DAILYAC PO Last administered on 02/01/19at 10:04; Start 01/28/19 at 11:30 Aspirin (Ecotrin) 81 mg DAILYWBKFT PO Last administered on 02/01/19at 10:07; Start 01/29/19 at 08:00 Ondansetron HCl (Zofran Odt) 8 mg PRN Q4HRS PRN PO NAUSEA/VOMITING Last administered on 02/01/19at 06:18; Start 01/30/19 at 07:30 Albuterol Sulfate (Ventolin Neb Soln) 2.5 mg PRN Q4HRS PRN NEB SHORTNESS OF BREATH; Start 01/30/19 at 14:30; Stop 01/31/19 at 10:19; Status DC Albuterol/ Ipratropium (Duoneb) 3 ml RTQID NEB ; Start 01/30/19 at 16:00; Stop 01/31/19 at 10:19; Status DC Non-Formulary Medication 1 ea PRN Q6HRS PRN INH SHORTNESS OF BREATH; Start 01/31/19 at 10:30 Non-Formulary Medication 1 ea DAILY INH Last administered on 02/01/19at 10:07; Start 01/31/19 at 11:00 Non-Formulary Medication 1 ea DAILY INH Last administered on 02/01/19at 10:08; Start 01/31/19 at 10:30 Active Scripts Active Enoxaparin Sodium 40 Mg/0.4 Ml Disp.syrin 40 Mg SQ Q24H MDD 1 10 Days Doxycycline Hyclate 100 Mg Tablet 100 Mg PO BID MDD 2 5 Days Reported Percocet 5-325 Mg Tablet (Oxycodone/Acetaminophen) 1 Each Tablet 2 Tab PO PRN Q6HRS PRN Xanax (Alprazolam) 0.25 Mg Tablet 1 Tab PO BID PRN Fluocinonide-E 0.05% Cream (Fluocinonide/Emollient) 15 Gm Cream..g. 15 Gm TP QIDPRN PRN Trelegy Ellipta 100-62.5-25 (Fluticasone/Umeclidin/Vilanter) 1 Each Blst.w.dev 1 Each IH DAILY Tessalon Perle (Benzonatate) 100 Mg Capsule 200 Mg PO BID PRN D3-50 (Cholecalciferol (Vitamin D3)) 50,000 Unit Capsule 50,000 Unit PO WEEKLY Lisinopril 2.5 Mg Tablet 2.5 Mg PO DAILY Bisoprolol Fumarate 5 Mg Tablet 5 Mg PO DAILY Zofran (Ondansetron Hcl) 4 Mg Tablet 2 Tab PO Q6HRS Proair Hfa (Albuterol Sulfate) 8.5 Gm Hfa.aer.ad 1 Puff INH PRN Q6HRS PRN Protonix (Pantoprazole Sodium) 20 Mg Tablet.dr 40 Mg PO DAILY Vital Signs Vital Signs Date Time Temp Pulse Resp B/P (MAP) Pulse Ox O2 Delivery O2 Flow Rate FiO2 02/01/19 11:00 97.8 89 18 94/97 (96) 96 Nasal Cannula 3.0 97.8 Allergies Allergies Coded Allergies Type Severity Reaction Last Updated Verified Penicillins Allergy Intermediate 06/11/18 Yes hydrocodone Allergy Intermediate 06/11/18 Yes Disposition/Orders: Other (d/c to snf) DEBBIE DE LA TORRE MD Feb 01, 2019 12:17
--- NOTE | 2019-02-01 12:19 | PDOC ---
PULMONARY PROGRESS NOTES Subjective NO NEW COMPLAIN LIKES THE NEW BIPAP PRESSURE Vitals Vital Signs Date Time Temp Pulse Resp B/P (MAP) Pulse Ox O2 Delivery O2 Flow Rate FiO2 02/01/19 11:00 97.8 89 18 94/97 (96) 96 Nasal Cannula 3.0 97.8 ROS: No Nausea, No Chest Pain, No Abdominal Pain, No Increase Cough General: Alert, No acute distress Lungs: Clear Cardiovascular: S1, S2 Abdomen: Soft Neuro Exam: Alert Extremities: No Edema, Other Skin: Warm Medications Active Scripts Medications Dose Route/Sig Max Daily Dose Days Date Category Dose Instructions Enoxaparin Sodium 40 Mg/0.4 Ml Disp.syrin 40 Mg SQ Q24H MDD 1 10 06/25/18 Rx Doxycycline Hyclate 100 Mg Tablet 100 Mg PO BID MDD 2 5 06/25/18 Rx Fluocinonide-E 0.05% Cream (Fluocinonide/Emollient) 15 Gm Cream..g. 15 Gm TP QIDPRN PRN 06/18/18 Reported Trelegy Ellipta 100-62.5-25 (Fluticasone/Umeclidin/Vilanter) 1 Each Blst.w.dev 1 Each IH DAILY 06/18/18 Reported Tessalon Perle (Benzonatate) 100 Mg Capsule 200 Mg PO BID PRN 06/18/18 Reported D3-50 (Cholecalciferol (Vitamin D3)) 50,000 Unit Capsule 50,000 Unit PO WEEKLY 06/18/18 Reported Lisinopril 2.5 Mg Tablet 2.5 Mg PO DAILY 06/18/18 Reported Sucralfate 1 Gm Tablet 1 Tab PO TID 06/16/18 Reported Triamcinolone Acetonide 0.1% Oint (Triamcinolone Acetonide) 15 Gm Oint...g. 1 Mayra TP BID 06/11/18 Reported MIX WITH EUCERIN DIRECTED BY PHYSICIAN Bisoprolol Fumarate 5 Mg Tablet 5 Mg PO DAILY 06/11/18 Reported Zofran (Ondansetron Hcl) 4 Mg Tablet 1 Tab PO Q6HRS 06/11/18 Reported Acidophilus Capsule (L. Acidophilus/Pectin, [place]) 1 Each Capsule 1 Each PO DAILY 06/11/18 Reported Proair Hfa (Albuterol Sulfate) 8.5 Gm Hfa.aer.ad 1 Puff INH PRN Q6HRS PRN 06/11/18 Reported Protonix (Pantoprazole Sodium) 20 Mg Tablet.dr 40 Mg PO DAILY 06/11/18 Reported Impression . IMPRESSION: 1. Acute on chronic hypoxemic /hypercapnic respiratory failure. 2. Acute exacerbation of chronic obstructive pulmonary disease. 3. Abnormal x-ray revealing evidence of small effusion with some atelectasis and some interstitial changes. 4. Anxiety disorder, unspecified. 5. Tobacco dependence, in remission. 6. History of previous respiratory failure, requiring intubation. 7. Chronic anemia. 8. Tobacco dependent, in remission. Plan . ABG 01/29 WITH OVER CORRECTION / REDUCED BIPAP SETTINGS FEELS BETTER WITH NEW SETTINGS 1. BiPAP qhs 2. Oxygen supplementation during the day. 3. Steroids PO 4. Empiric antibiotics. 5. I have reviewed home AVAPS settings and reduced TV from 600 to 500 and max pressure from 30 to 26 6. await skill care transfer d/w GLENROY BROOKS MD Feb 01, 2019 12:19
[2019-02-01] MEDS ORDERED: Folic Acid PO (12:20)
[2019-02-01] MEDS ORDERED: ASPI-612 PO (12:20)
[2019-02-01] MEDS ORDERED: LACT1CAP19 PO (12:20)
[2019-02-01] MEDS ORDERED: PRED-220 PO (12:20)
--- NOTE | 2019-02-01 12:22 | SNU/HH DC ---
DISCHARGE ORDERS DISCHARGE INFORMATION: FINAL DIAGNOSIS Problems Medical Problems: (1) Dyspnea Status: Acute (2) Weakness Status: Acute CONDITION ON DISCHARGE: Stable CODE STATUS: Code Status: Full CARE HOME: SNF STAY <30 DAYS: Yes HOSPICE: HOSPICE: No HOSPICE EVAL & TREAT: No LTAC: ADMIT TO LTAC: No POST DISCHARGE ORDERS: ACTIVITY ORDERS: Activity as tolerated WEIGHT BEARING STATUS: As tolerated DIET AFTER DISCHARGE: Cardiac CHECKS AFTER DISCHARGE: CHECKS AFTER DISCHARGE: Check blood press - daily TREATMENT/EQUIPMENT ORDERS: ADAPTIVE EQUIPMENT NEEDED: Front wheeled walker RESPIRATORY EQUIPMENT NEEDED: Oxygen, Nebulizer Physical Therapy For: Evalulation/Treatment Occupational Therapy For: Evaluation/Treatment Speech Language Pathology For: Evaluation/Treatment DISCHARGE MEDICATIONS: Home Meds Active Scripts [Folic Acid] 1 MG TABLET No Conflict Check, 1 MG PO DAILY for supplement for 30 Days, #30 Prov:DEBBIE DE LA TORRE MD 02/01/19 Prednisone (PREDNISONE ) 10 Mg Tablet, 10 MG PO TID for copd for 10 Days, #30 TAB Prov:DEBBIE DE LA TORRE MD 02/01/19 Lactobacillus Rhamnosus Gg (CULTURELLE) 1 Each Cap.sprink, 1 CAP PO BID for supplement for 30 Days, #60 CAP Prov:DEBBIE DE LA TORRE MD 02/01/19 Aspirin (ASPIRIN EC) 81 Mg Tablet.dr, 81 MG PO DAILYWBKFT for heart health for 30 Days, #30 TAB.SR Prov:DEBBIE DE LA TORRE MD 02/01/19 Enoxaparin Sodium (ENOXAPARIN SODIUM) 40 Mg/0.4 Ml Disp.syrin, 40 MG SQ Q24H for dvt MDD 1 for 10 Days, DIS.SYR Prov:MILES MOJICA MD 06/25/18 Doxycycline Hyclate (DOXYCYCLINE HYCLATE) 100 Mg Tablet, 100 MG PO BID for pneumonia MDD 2 for 5 Days, #10 TAB Prov:MILES MOJICA MD 06/25/18 Reported Medications Alprazolam (XANAX) 0.25 Mg Tablet, 1 TAB PO BID PRN for ANXIETY, #30 TAB 01/27/19 Fluocinonide/Emollient (FLUOCINONIDE-E 0.05% CREAM) 15 Gm Cream..g., 15 GM TP QIDPRN PRN for DRY SKIN / SCALING, EACH 06/18/18 Fluticasone/Umeclidin/Vilanter (Trelegy Ellipta 100-62.5-25) 1 Each Blst.w.dev, 1 EACH IH DAILY for COPD 06/18/18 Benzonatate (TESSALON PERLE) 100 Mg Capsule, 200 MG PO BID PRN for COUGH, CAP 06/18/18 Cholecalciferol (Vitamin D3) (D3-50) 50,000 Unit Capsule, 99635 UNIT PO WEEKLY for supplement, CAP 06/18/18 Lisinopril (LISINOPRIL) 2.5 Mg Tablet, 2.5 MG PO DAILY for FOR HYPERTENSION, #30 TAB 0 Refills 06/18/18 Bisoprolol Fumarate (BISOPROLOL FUMARATE) 5 Mg Tablet, 5 MG PO DAILY for bb, TAB 06/11/18 Ondansetron Hcl (ZOFRAN) 4 Mg Tablet, 2 TAB PO Q6HRS for n/v, #20 TAB 06/11/18 Albuterol Sulfate (Proair Hfa) 8.5 Gm Hfa.aer.ad, 1 PUFF INH PRN Q6HRS PRN for SHORTNESS OF BREATH, INHALER 06/11/18 Pantoprazole Sodium (PROTONIX) 20 Mg Tablet.dr, 40 MG PO DAILY for gerd, TAB 06/11/18 Discontinued Reported Medications Oxycodone/Apap 5-325 (PERCOCET 5-325 MG TABLET ) 1 Each Tablet, 2 TAB PO PRN Q6HRS PRN for PAIN, TAB 0 Refills 01/27/19 Sucralfate (SUCRALFATE) 1 Gm Tablet, 1 TAB PO TID for ulcer, #90 TAB 11 Refills 06/16/18 Triamcinolone Acetonide (TRIAMCINOLONE ACETONIDE 0.1% OINT) 15 Gm Oint...g., 1 A PP TP BID for WOUND CARE, #1 TUBE MIX WITH EUCERIN DIRECTED BY PHYSICIAN 06/11/18 L. Acidophilus/Pectin, [place] (Acidophilus Capsule) 1 Each Capsule, 1 EACH PO DAILY for probiotic, CAP 06/11/18 DEBBIE DE LA TORRE MD Feb 01, 2019 12:22
--- NOTE | 2019-02-01 14:25 | NUR ---
attempted to call report to [facility]. Nurse unavailable.
--- NOTE | 2019-02-01 15:04 | NUR ---
report given to Maria C @ [facility]. meds and follow up reviewed. pt had glasses and home trilogy machine from [facility]. settings reviewed w/ [facility]. IV removed, cath intact. Pt stable upon DC.
--- NOTE | 2019-02-01 15:30 | NUR ---
NIKITA following pt. Insurance approved SNU and [facility] [place] has come in to update bipap setting. Orders faxed to [facility] and pt will transport via facility arranged w/c van between [id number]. Pt and notified agreeable. Packet on chart. Pt will take his Bipap to [facility]. Discussed with PEDRO.
[2019-02-04] MEDS ORDERED: ERGOCALCIFEROL (VITAMIN D2) 50,000 UNIT CAPSULE. PO SCH (09:00)
== END 2019-02-01 15:07 | DRG 189 ==
LOC: ER 13:16 → 6 SOUTH 15:20
PROVIDERS: ADMIT Internal Medicine; ATTEND Internal Medicine
PROC: 5A09357 Assistance with Respiratory Ventilation, Less than 24 Consecutive Hours, Continuous Positive Airway Pressure (ICD-10-PCS; principal; 2019-01-27)
PROC: 5A09357 Assistance with Respiratory Ventilation, Less than 24 Consecutive Hours, Continuous Positive Airway Pressure (ICD-10-PCS; 2019-01-28)
PROC: 5A09357 Assistance with Respiratory Ventilation, Less than 24 Consecutive Hours, Continuous Positive Airway Pressure (ICD-10-PCS; 2019-01-29)
PROC: 5A09357 Assistance with Respiratory Ventilation, Less than 24 Consecutive Hours, Continuous Positive Airway Pressure (ICD-10-PCS; 2019-01-30)
PROC: 5A09357 Assistance with Respiratory Ventilation, Less than 24 Consecutive Hours, Continuous Positive Airway Pressure (ICD-10-PCS; 2019-01-31)
DX: J96.21 Acute and chronic respiratory failure with hypoxia (principal); I50.23 Acute on chronic systolic (congestive) heart failure; E87.3 Alkalosis; J98.11 Atelectasis; I24.8 Other forms of acute ischemic heart disease; I11.0 Hypertensive heart disease with heart failure; J96.22 Acute and chronic respiratory failure with hypercapnia; L40.9 Psoriasis, unspecified; M19.90 Unspecified osteoarthritis, unspecified site; M62.50 Muscle wasting and atrophy, not elsewhere classified, unspecified site; J43.9 Emphysema, unspecified; D64.9 Anemia, unspecified; F41.9 Anxiety disorder, unspecified; F17.201 Nicotine dependence, unspecified, in remission; G89.29 Other chronic pain; I10 Essential (primary) hypertension; Z99.81 Dependence on supplemental oxygen; Z87.11 Personal history of peptic ulcer disease; Z82.49 Family history of ischemic heart disease and other diseases of the circulatory system; Z88.5 Allergy status to narcotic agent; Z88.0 Allergy status to penicillin
CPT/HCPCS: 36415; 36600; 71045; 80053; 80061; 81001; 82805; 83735; 83880; 84439; 84443; 84484; 85007; 85025; 90471; 90686; 93005; 93306; 94640; 94660; 94760; 96361; 96374; 96375; J1650; J1940; J2920; J2930; J3490; J7030; J7512; J7620; J7626; Q0162; 97110; 97530; 97535; 99285-25; G0378